=== PATIENT | male | born 1955 | race Caucasian/White ===

== ENCOUNTER 2024-02-17 22:02 | Inpatient (IN) | payer MEDICARE, SELFPAY ==
--- NOTE | 2024-02-17 | ECG_ITS ---
Test Reason : DYSPNEA Blood Pressure : / mmHG Vent. Rate : 117 BPM Atrial Rate : 000 BPM P-R Int : 000 ms QRS Dur : 132 ms QT Int : 356 ms P-R-T Axes : 000 090 -38 degrees QTc Int : 496 ms Atrial fibrillation with rapid ventricular response Right bundle branch block Possible Lateral infarct , age undetermined Abnormal ECG No previous ECGs available Referred By: Generic ED Physician Electronically Signed By:BAMBI HALL
--- NOTE | ~2024-02-17 | CT_ITS ---
EXAMINATION: CT CHEST WITHOUT CONTRAST CLINICAL INFORMATION: Question pneumonia COMPARISON: Chest radiograph 02/17/2024. TECHNIQUE: Multidetector volumetric CT imaging of the chest was done. Axial MIP volume rendering provided. Sagittal and coronal reformatted images were obtained. This CT examination was performed using dose optimization techniques as appropriate, variously including the following: *Automated exposure control *Adjustment of mA and/or kV according to patient size (this includes techniques or standardized protocols for targeted exams where dose is matched to indication/reason for exam; i.e. extremities or head) *Use of iterative reconstruction technique DLP: 399 mGy-cm FINDINGS: Lungs and pleura: Moderate right pleural effusion is present. Small left pleural effusion is present. Near complete left lower lobe atelectasis is identified. No suspicious pulmonary nodules visualized. Mediastinum: Moderate diffuse aortic calcific atherosclerosis. Moderate-marked diffuse coronary artery calcific atherosclerosis with dense calcific plaque within the left anterior descending coronary artery. No pericardial thickening or fluid collections. Normal heart size. CHEST WALL: No axillary lymphadenopathy. No chest wall inflammatory changes. Incidentally visualized abdominal structures: Partial visualization is made of a fusiform infrarenal abdominal aorta aortic aneurysm measuring at least 5.0 cm in transaxial dimension. The aneurysm is not fully included on imaged field of view. No inflammatory changes noted in continuity with the visualized aneurysm. Osseous structures: No suspicious skeletal abnormalities identified. CT/CT chest wo IV con IMPRESSION: *Near-complete left lower lobe atelectasis. No pulmonary consolidation or inflammatory changes identified to specifically suggest pneumonia. *Small left pleural effusion and moderate right pleural effusion. *Partially visualized abdominal aortic aneurysm measuring at least 5.0 cm in transaxial dimension. Recommend dedicated imaging of the aorta. The aorta may be imaged with dedicated aortic ultrasound. Based on published guidelines in J Am Mandy Radiol 2013; 10(10):789-794 and J Vasc Surg. 2018; 67:2-77, the recommendation for an abdominal aortic aneurysm with diameter 4.5-5.4 cm is vascular consultation and subsequent follow-up every 6 months. *Moderate-marked coronary artery calcific atherosclerosis including dense calcific atherosclerosis within the left anterior descending coronary artery. Electronically signed by: Javier Murphy MD 02/18/2024 06:14 AM EST
--- NOTE | ~2024-02-17 | XR_ITS ---
EXAMINATION: XR CHEST CLINICAL INFORMATION: Shortness of breath COMPARISON: X-ray 02/17/2024 TECHNIQUE: Frontal view of the chest was obtained. FINDINGS: Rotated positioning. Lordotic view. This limits evaluation of the cardiac silhouette. This overall appears similar as compared to previous, allowing for difference in positioning/technique. Low lung volumes. Small-moderate left pleural effusion. Small right pleural effusion. Opacification in the left lower lung/retrocardiac region. This suggests atelectasis or consolidation. This is better evaluated on the prior CT scan. No pulmonary edema. No pneumothorax is seen. Overlying monitoring leads.. XR/XR chest 1V IMPRESSION: Small-moderate left pleural effusion. Small right pleural effusion. Opacification the left lower lung/retrocardiac region, from atelectasis versus inflammatory/infectious process. Electronically signed by: Isac Douglas MD 02/21/2024 06:50 PM EST
--- NOTE | ~2024-02-17 | XR_ITS ---
EXAMINATION: XR CHEST CLINICAL INFORMATION: Dyspnea. COMPARISON: Chest x-ray September 27, 2013 dictated report. TECHNIQUE: Frontal portable view of the chest was obtained. 10:59 PM FINDINGS: Overall volume loss left hemithorax compared to right. Dense left lung base with silhouetting of the diaphragm, consolidation/atelectasis. Right lung normally aerated. No pulmonary vascular congestion. XR/XR chest 1V IMPRESSION: Dense left lung base with silhouetting of the diaphragm, consolidation/atelectasis. Electronically signed by: Jareth Ramirez MD 02/17/2024 11:36 PM EDT
[2024-02-17 22:17] VITALS: BP 136/70; PULSE 100; O2SAT 98
[2024-02-17 22:21] VITALS: BP 101/55; PULSE 109; RESP 22; TEMP 36.6; O2SAT 97; BMI 31.9
[2024-02-17 22:51] LABS: MANUAL DIFF FLAG NO
[2024-02-17 22:52] LABS: Eosinophils Absolute Auto 0.1 X10*3/uL (0.0-0.4); Eosinophils Percent Auto 0.7 % (0-4); Hemoglobin 10.5 g/dl (14.0-18.0)
[2024-02-17 22:54] LABS: VBG Base Excess 1.1 mmol/L; VBG HCO3 24 mmol/L (22-26); VBG pCO2 36 mmHg; VBG pH 7.44 (7.32-7.43); VBG pO2 21 mmHg
[2024-02-17 22:57] LABS: Venous Blood Gas Refer to POC result
[2024-02-17 22:58] LABS: INTERNATIONAL NORM RATIO 1.3 (0.9-1.1); Prothrombin Time 15.1 SEC (10.9-12.4)
[2024-02-17 22:59] LABS: Basophils Absolute Auto 0.1 X10*3/uL (0.0-0.2); Basophils Percent Auto 0.5 % (0-2); Hematocrit 33.8 % (42.0-52.0); Imm Gran Abs Auto 0.08 X10*3/uL (0.00-0.03); Imm Gran Pct Auto 0.7 % (0.0-0.4); Lymphocytes Percent Auto 8.9 % (20-40); Mean Corpuscular HGB Conc 31.1 g/dl (31.0-36.0); Mean Corpuscular Hemoglobin 28.3 pg (27.0-33.0); Mean Corpuscular Volume 91.1 fL (80.0-98.0); Mean Platelet Volume 8.2 fL (9.4-12.4); Monocytes Absolute Auto 0.8 X10*3/uL (0.1-1.2); Monocytes Percent Auto 6.6 % (2-11); NRBC Pct Auto 0.7 /100WBC (0.0-0.2); Neutrophils Absolute Auto 9.4 x10*3/uL (2.0-8.3); Neutrophils Percent Auto 82.6 % (45-73); Platelet Count 459 X10*3/uL (160-400); Red Blood Count 3.71 X10*6/uL (4.60-5.80); Red Cell Distribution Width 18.7 % (11.0-16.0); White Blood Count 11.4 X10*3/uL (4.8-10.8)
[2024-02-17 23:06] LABS: Alanine Aminotransferase < 6 U/L (0-40); Albumin Level 2.7 g/dL (3.5-5.0); Alkaline Phosphatase 124 U/L (39-117); Anion Gap 21 (12-20); Aspartate Amino Transferase 20 U/L (5-37); Bilirubin Total 1.3 mg/dL (0.0-1.0); Blood Urea Nitrogen 15 mg/dL (9-16); Calcium 8.9 mg/dL (8.4-10.2); Carbon Dioxide 22 mmol/L (22-29); Chloride 104 mmol/L (96-108); Creatinine Clr Calc Pharmacy 86.2; Estimated Glomerular Filt Rate > 60; Glucose Random 85 mg/dL (60-115); Potassium 4.6 mmol/L (3.3-5.1); Sodium 142 mmol/L (135-145); Total Protein 6.9 g/dL (6.5-8.0)
[2024-02-17 23:11] LABS: B Type Natriuretic Peptide 981 pg/mL (<100)
[2024-02-17 23:12] LABS: Troponin-I High Sensitivity 17.2 ng/L (<3.5-35.0)
[2024-02-17 23:29] LABS: Influenza A PCR NEGATIVE (Negative); Influenza B PCR NEGATIVE (Negative); Resp Syncy Virus RNA Qual PCR NEGATIVE (Negative); SARS COV2 PCR INHOUSE NEGATIVE (Negative)
[2024-02-18] VITALS (26 sets, daily range): BP systolic 67–110; BP diastolic 44–81; PULSE 89–128; RESP 14–30; TEMP 35.9–36.6; O2SAT 93–97; BMI 33.8
--- NOTE | 2024-02-18 00:22 | ED.SOB ---
HPI - SOB/Dyspnea General Chief Complaint: Dyspnea Stated Complaint: dizziness Time Seen by Provider: 02/18/24 00:21 Source: patient Mode of arrival: ambulatory Limitations: no limitations History of Present Illness ED Provider: refugio MARINO Narrative: Patient's history of COPD CHF AFib on Eliquis which he has not taking for last few weeks with just admitted to [facility] discharged on 02/02 , dc on 02/06 for weakness ,with similar symptoms comes here for shortness a breath cough for last 3- 4 days patient's used to be on furosemide but they stopped it at the time of discharge no leg swelling does have a cough with mucopurulent phlegm patient complaining of increased dizziness specially on standing patient had hypotension at the time of admission hence torsemide and Flomax was stopped Related Data Home Medications ?Medication ?Instructions ?Recorded ?Confirmed albuterol sulfate 90 mcg/actuation inhalation 02/18/24 aerosol inhaler atorvastatin 80 mg tablet 80 mg PO DAILY 02/18/24 02/18/24 bupropion HCl 300 mg 24 hr tablet, 300 mg PO DAILY 02/18/24 02/18/24 extended release oxycodone-acetaminophen 5 mg-325 1 tab PO Q6H PRN pain 02/18/24 02/18/24 mg tablet Allergies Allergy/AdvReac Type Severity Reaction Status Date / Time nicotine AdvReac Itching Verified 02/17/24 22:25 Review of Systems Review of Systems: Yes all other systems are reviewed and are negative [facility] Past Medical History Medical History (Updated 02/18/24 @ 07:02 by Rodolfo Akers MD) (HFpEF) heart failure with preserved ejection fraction CKD (chronic kidney disease) Lung cancer Abdominal aortic aneurysm PVD (peripheral vascular disease) COPD (chronic obstructive pulmonary disease) Atrial fibrillation Social History Social History Smoked in Last 30 Days: No Use of substances other than those prescribed or required for medical reasons: No Advance Directives: No Advance Directives Information Provided: No Do you have a plan to hurt others: No Plan Physical Exam Vital Signs: Vital Signs: Last Vital Signs Temp 97.8 F 02/18/24 00:23 Pulse 115 H 02/18/24 05:39 Resp 18 02/18/24 05:39 BP 100/71 02/18/24 05:39 Pulse Ox 94 02/18/24 05:21 O2 Del Method Room Air 02/18/24 05:21 BMI result Body Mass Index 31.9 Appearance: Alert. Oriented X3. No acute distress. Eyes: ++ pallor, - icterus ENT: Pharynx normal. Oral Mucosa moist Neck: Normal inspection. Neck supple. CVS: Irregularly irregular heart rate tachycardic. Pulses normal. Respiratory: No respiratory distress. Equal air entry bilateral, no wheezing/rales/rhonchi Abdomen: Soft and nontender. Bowel sounds are present, no mass palpable, no CVA tenderness Skin: Skin warm and dry. Normal skin color. Normal skin turgor. Extremities: No lower extremity edema. No calf tenderness Neuro: Oriented X 3. No motor deficit. Medications Administered Discontinued Medications Generic Name Dose Route Start Last Admin Trade Name Freq PRN Reason Stop Dose Admin Al Hydroxide/Mg Hydroxide 30 ml 02/18/24 02:07 02/18/24 02:12 Magnesium Hydrox/Alum Hydrox 30 Ml Oral.Susp PO 02/18/24 02:08 30 ml ONCE ONE Administration Ceftriaxone Sodium 1 gm 02/18/24 04:46 02/18/24 05:23 Ceftriaxone Sodium 1 Gm Vial IVPUSH 02/18/24 04:47 1 gm ONCE ONE Administration Albuterol Sulfate 2.5 mg/ 0 mg 02/18/24 00:34 02/18/24 00:46 Albuterol/Ipratropium 3 ml INHALE 02/18/24 00:35 5 dose ONCE ONE Administration Sodium Chloride 1,000 mls @ 999 mls/hr 02/18/24 00:34 02/18/24 01:32 EST Ns IV 02/18/24 01:34 EST Infused .Q1H1M ONE Infusion Sodium Chloride 1,000 mls @ 999 mls/hr 02/18/24 01:46 EST 02/18/24 06:07 Ns IV 02/18/24 02:46 Infused .Q1H1M ONE Infusion Midodrine 5 mg 02/18/24 01:46 EST 02/18/24 02:03 Midodrine Hcl 5 Mg Tablet PO 02/18/24 01:47 EST 5 mg ONCE ONE Administration Medical Decision Making Medical Decision Making MDM Narrative: Patient has significant orthostatic hypotension IV fluids were given still patient is hypotensive on standing patient was given midodrin elevated lactic acid level likely type B from nebulizing treatment blood cultures were drawn will admit patient for persistent hypotension etiology not clear IV Rocephin was given CT chest negative for pneumonia patient's atrial fibrillation also with heart rate ranging from 110-120 patient is on beta parag has not taken in the dose yet tamsulosin and torsemide was stopped during last admission still patient's hypotensive Differential Diagnosis Differential Diagnoses: The differential diagnosis associated with the presentation includes Hypotension/CHF/bacterial infection Admission/Observation Consideration of admission/observation: Escalation of care including admission/observation considered Consult Healthcare Provider Management of the patient was discussed with: Hospitalist Lab Data [facility] Lab Attestation statement: I reviewed the patient's lab results. 02/17/24 22:44 02/17/24 22:44 Labs: Lab Results 02/17/24 02/17/24 02/18/24 Range/Units 22:44 22:49 05:20 WBC 11.4 H (4.8-10.8) X10*3/uL RBC 3.71 L (4.60-5.80) X10*6/uL Hgb 10.5 L (14.0-18.0) g/dl Hct 33.8 L (42.0-52.0) % MCV 91.1 (80.0-98.0) fL MCH 28.3 (27.0-33.0) pg MCHC 31.1 (31.0-36.0) g/dl RDW 18.7 H (11.0-16.0) % Plt Count 459 H (160-400) X10*3/uL MPV 8.2 L (9.4-12.4) fL Immature Gran % (Auto) 0.7 H (0.0-0.4) % Neut % (Auto) 82.6 H (45-73) % Lymph % (Auto) 8.9 L (20-40) % [place] % (Auto) 6.6 (2-11) % Eos % (Auto) 0.7 (0-4) % Baso % (Auto) 0.5 (0-2) % Lymph # (Auto) 1.0 L (1.2-4.9) X10*3/uL [place] # (Auto) 0.8 (0.1-1.2) X10*3/uL Eos # (Auto) 0.1 (0.0-0.4) X10*3/uL Baso # (Auto) 0.1 (0.0-0.2) X10*3/uL Abs Immat Gran (auto) 0.08 H (0.00-0.03) X10*3/uL Absolute Neuts (auto) 9.4 H (2.0-8.3) x10*3/uL Absolute Nucleated RBC 0.080 H (0.0-0.012) X10*3/uL Nucleated RBC % (auto) 0.7 H (0.0-0.2) /100WBC PT 15.1 H (10.9-12.4) SEC INR 1.3 H (0.9-1.1) VBG pH 7.44 H (7.32-7.43) VBG pCO2 36 mmHg VBG pO2 21 mmHg VBG HCO3 24 (22-26) mmol/L VBG O2 Saturation 35.0 % VBG Base Excess 1.1 mmol/L Sodium 142 (135-145) mmol/L Potassium 4.6 (3.3-5.1) mmol/L Chloride 104 (96-108) mmol/L Carbon Dioxide 22 (22-29) mmol/L Anion Gap 21 H (12-20) BUN 15 (9-16) mg/dL Creatinine 0.93 (0.5-1.4) mg/dL Estim Creat Clear Calc 86.2 Estimated GFR > 60 Random Glucose 85 (60-115) mg/dL Lactic Acid 2.4 H* (0.5-2.0) mmol/L Calcium 8.9 (8.4-10.2) mg/dL Total Bilirubin 1.3 H (0.0-1.0) mg/dL AST 20 (5-37) U/L ALT < 6 (0-40) U/L Alkaline Phosphatase 124 H (39-117) U/L Troponin I High Sens 17.2 (<3.5-35.0) ng/L B-Natriuretic Peptide 981 H (<100) pg/mL Total Protein 6.9 (6.5-8.0) g/dL Albumin 2.7 L (3.5-5.0) g/dL COVID-19 ([facility]) (Negative) COVID-19 Clin Com Influenza Type A (PCR) NEGATIVE (Negative) Influenza Type B (PCR) NEGATIVE (Negative) RSV RNA Qual (PCR) NEGATIVE (Negative) SARS-CoV-2 RNA (RT-PCR) NEGATIVE (Negative) 02/18/24 Range/Units 05:21 WBC (4.8-10.8) X10*3/uL RBC (4.60-5.80) X10*6/uL Hgb (14.0-18.0) g/dl Hct (42.0-52.0) % MCV (80.0-98.0) fL MCH (27.0-33.0) pg MCHC (31.0-36.0) g/dl RDW (11.0-16.0) % Plt Count (160-400) X10*3/uL MPV (9.4-12.4) fL Immature Gran % (Auto) (0.0-0.4) % Neut % (Auto) (45-73) % Lymph % (Auto) (20-40) % [place] % (Auto) (2-11) % Eos % (Auto) (0-4) % Baso % (Auto) (0-2) % Lymph # (Auto) (1.2-4.9) X10*3/uL [place] # (Auto) (0.1-1.2) X10*3/uL Eos # (Auto) (0.0-0.4) X10*3/uL Baso # (Auto) (0.0-0.2) X10*3/uL Abs Immat Gran (auto) (0.00-0.03) X10*3/uL Absolute Neuts (auto) (2.0-8.3) x10*3/uL Absolute Nucleated RBC (0.0-0.012) X10*3/uL Nucleated RBC % (auto) (0.0-0.2) /100WBC PT (10.9-12.4) SEC INR (0.9-1.1) VBG pH (7.32-7.43) VBG pCO2 mmHg VBG pO2 mmHg VBG HCO3 (22-26) mmol/L VBG O2 Saturation % VBG Base Excess mmol/L Sodium (135-145) mmol/L Potassium (3.3-5.1) mmol/L Chloride (96-108) mmol/L Carbon Dioxide (22-29) mmol/L Anion Gap (12-20) BUN (9-16) mg/dL Creatinine (0.5-1.4) mg/dL Estim Creat Clear Calc Estimated GFR Random Glucose (60-115) mg/dL Lactic Acid (0.5-2.0) mmol/L Calcium (8.4-10.2) mg/dL Total Bilirubin (0.0-1.0) mg/dL AST (5-37) U/L ALT (0-40) U/L Alkaline Phosphatase (39-117) U/L Troponin I High Sens (<3.5-35.0) ng/L B-Natriuretic Peptide (<100) pg/mL Total Protein (6.5-8.0) g/dL Albumin (3.5-5.0) g/dL COVID-19 ([facility]) Negative (Negative) COVID-19 Clin Com See Note Influenza Type A (PCR) (Negative) Influenza Type B (PCR) (Negative) RSV RNA Qual (PCR) (Negative) SARS-CoV-2 RNA (RT-PCR) (Negative) Independent Interpretation I performed an independent interpretation of an: EKG Interpretation: Atrial fibrillation with rapid ventricular response rate of 117 right bundle-branch block no acute ST elevation no acute ischemia Discharge Plan Discharge Clinical Impression: Hypotension, Atrial fibrillation, Weakness Patient Disposition: Admitted As Inpatient Print Language: Montserratian
[2024-02-18] MEDS: 0.9 % Sodium Chloride 1,000 ML 999 ML IV ×2 (00:41→02:03)
[2024-02-18] MEDS: Albuterol Sulfate 2.5 MG, Albuterol/Iprat 2.5/0.5MG 3 ML 3 ML INHALE (00:46)
--- NOTE | 2024-02-18 01:09 | PC.NURSE ---
Pt oob to bathroom, pt has a steady gait, no pain at this time. pt remains NPO
--- NOTE | 2024-02-18 01:44 | PC.NURSE ---
Orthostatic vitals per became very light headed. Laying bp 90/65, sitting 77/50, standing 67/44. made aware, 1L NS hung per MD request
[2024-02-18] MEDS: Midodrine HCl 5 MG TABLET PO ×4 (02:03→15:43)
[2024-02-18] MEDS: Magnesium Hydrox/Alum Hydrox 30 ML ORAL.SUSP PO (02:12)
[2024-02-18] MEDS: cefTRIAXone sodium 1 GM VIAL IVPUSH (05:23)
[2024-02-18 05:38] LABS: COVID-19 Test Negative (Negative); IDNOW Serial# 6674DD1D
[2024-02-18 05:41] LABS: Lactic Acid 2.4 mmol/L (0.5-2.0)
--- NOTE | 2024-02-18 06:05 | PC.NURSE ---
late entry: fluids stopped d/t crackles in lung sounds.
[2024-02-18 07:27] LABS: Reflex Lactate? Lactic Acid Added
--- NOTE | 2024-02-18 07:53 | PC.NURSE ---
patient a&ox3, rr equal non labored, lll crackles/diminished throughout, afib on electronic device monitor, pt denies pain/discomfort, pt walks with walker at baseline, tech to redraw lactic, kitchen called for breakfast, pt awaiting hospitalist for admission. call dyer within reach, will continue plan of care
--- NOTE | 2024-02-18 08:09 | PHA.MEDREC ---
Pharmacy Consult ? Medication Reconciliation Pharmacy has completed the medication reconciliation. Spoke with patient in the ED who was able to confirm medications he has been taking. Recently discharged from [facility] with discharge instructions. Patient is supposed to be taking torsemide PRN, sprivia, Trelegy, Apixaban, Finasteride but the medications have not been picked up recently. Called [facility] to confirm these medications and the RX is there but on hold. Patient explained he is in the donut hole and his prescriptions are too expensive. Per [facility] discharge instruction on 02/07/24 patient was supposed to stop tamsulosin and start finasteride. Patient last took medications yesterday.
[2024-02-18 08:28] LABS: ~Lactic Acid-LAB USE ONLY 2.5 mmol/L (0.5-2.0)
--- NOTE | 2024-02-18 08:46 | PC.NURSE ---
pts lactic was called to be 2.5, Priyanka Groves was notified via tiger text.
[2024-02-18 10:04] LABS: Reflex Lactate? 2 Y
[2024-02-18] MEDS: Apixaban 5 MG TABLET PO ×2 (10:13→20:58)
[2024-02-18] MEDS: Aspirin Enteric Coated 81 MG TABLET.DR PO (10:13)
[2024-02-18] MEDS: Finasteride 5 MG TABLET PO (10:13)
[2024-02-18] MEDS: Omeprazole 20 MG CAPSULE.DR PO ×2 (10:13→15:43)
[2024-02-18] MEDS: Atorvastatin Calcium 80 MG TABLET PO (10:13)
[2024-02-18] MEDS: buPROPion HCl XL 300 MG TAB.ER.24H PO (10:14)
[2024-02-18] MEDS: Famotidine 20 MG TABLET PO ×2 (10:14→20:59)
[2024-02-18] MEDS: Albumin Human 25 % 100 ML IV ×3 (10:15→21:02)
--- NOTE | 2024-02-18 10:21 | PC.NURSE ---
pt medicated with all po meds. lasix to be held until midodrine takes effect per request of Dr. Steel. albumin hung per order
--- NOTE | 2024-02-18 11:08 | P.HPHOSP_ITS ---
History of Present Illness Date of Service: 02/18/24 Attending physician on admission: Donta Steel Chief Complaint: possible orthostasis ,afib,chf HPI: 68 y/o male ex smoker (60 pack year hx),COPD CHF AFib on Eliquis which he has not taking for last few weeks with just admitted to [facility] discharged on 02/02 , dc on 02/06 for weakness ,with similar symptoms comes here for shortness a breath cough for last 3- 4 days patient's used to be on furosemide but they stopped it at the time of discharge no leg swelling does have a cough with mucopurulent phlegm patient complaining of increased dizziness (specially on standing patient had hypotension at the time of admission hence torsemide and Flomax was stopped).patient says he appitite and hydration also low. patient seems orthostatic in ed ,generalised weak ,tachy and sob, elevated bnp, leg edema -given ivf /midodrine ,ceftriaxone -requested admission for possible chf . lactic acid elevated sec to hypovolemia/orthostsis ,nebs he says he received Patient is generlaised weak ,lightheadness ,sob with excersion, has leg edema ,unable to tell if any weight gain ,poor histroian , does not seems very complaint patient. labs imaging ,ekg reviewed : wbc 11.4 lactic acidosis imrpoved bmp fine bnp 981 CT/CT chest wo IV con IMPRESSION: *Near-complete left lower lobe atelectasis. No pulmonary consolidation or inflammatory changes identified to specifically suggest pneumonia. *Small left pleural effusion and moderate right pleural effusion. *Partially visualized abdominal aortic aneurysm measuring at least 5.0 cm in transaxial dimension. Recommend dedicated imaging of the aorta. The aorta may be imaged with dedicated aortic ultrasound. Based on published guidelines in J Am Mandy Radiol 2013; 10(10):789-794 and J Vasc Surg. 2018; 67:2-77, the recommendation for an abdominal aortic aneurysm with diameter 4.5-5.4 cm is vascular consultation and subsequent follow-up every 6 months. *Moderate-marked coronary artery calcific atherosclerosis including dense calcific atherosclerosis within the left anterior descending coronary artery. Review of Systems 2 Review of Systems: Yes all other systems are reviewed and are negative [facility] Medical History (HFpEF) heart failure with preserved ejection fraction CKD (chronic kidney disease) Lung cancer Abdominal aortic aneurysm PVD (peripheral vascular disease) COPD (chronic obstructive pulmonary disease) Atrial fibrillation Social History Patient Tobacco Use Status: Never used Tobacco Meds Allergies Allergy/AdvReac Type Severity Reaction Status Date / Time nicotine AdvReac Itching Verified 02/17/24 22:25 Active Medications: Current Medications Acetaminophen (Acetaminophen 325 Mg Tablet) 650 mg PO Q6H PRN PRN Reason: Pain, Mild (Pain Scale 1-3), fever or headache Albuterol Sulfate (Albuterol Sulfate 90 Mcg 8 Gm Inhaler) 2 puff INHALE Q4H PRN PRN Reason: Shortness Of Breath Or Wheezin Albuterol/Ipratropium (Albuterol/Iprat 2.5/0.5mg 3 Ml Ampul.Neb) 3 ml INHALE RQ4H [facility] Apixaban (Apixaban 5 Mg Tablet) 5 mg PO BID [facility] Last Admin: 02/18/24 10:13 Dose: 5 mg Aspirin (Aspirin Enteric Coated 81 Mg Tablet.Dr) 81 mg PO DAILY [facility] Last Admin: 02/18/24 10:13 Dose: 81 mg Atorvastatin Calcium (Atorvastatin Calcium 80 Mg Tablet) 80 mg PO DAILY [facility] Last Admin: 02/18/24 10:13 Dose: 80 mg Bupropion HCl (Bupropion Hcl Xl 300 Mg Tab.Er.24h) 300 mg PO DAILY [facility] Last Admin: 02/18/24 10:14 Dose: 300 mg Calcium Carbonate (Calcium Carbonate 750 Mg Tab.Chew) 750 mg PO Q4H PRN PRN Reason: Heartburn Famotidine (Famotidine 20 Mg Tablet) 20 mg PO BID [facility] Last Admin: 02/18/24 10:14 Dose: 20 mg Finasteride (Finasteride 5 Mg Tablet) 5 mg PO DAILY [facility] Last Admin: 02/18/24 10:13 Dose: 5 mg Fluticasone/Umeclidinium/Vilanterol (Fluticasone/Umeclidinium/Vilanterol 100/62.5/25 Blst.W.Dev) 1 puff INHALE RDAILY [facility] Last Admin: 02/18/24 09:37 Dose: Not Given Furosemide (Furosemide 20 Mg/2 Ml Vial) 20 mg IVPUSH DAILY [facility]; Protocol Albumin Human (Kedbumin 25 %) 100 mls @ 100 mls/hr IV Q6H [facility] Stop: 02/19/24 04:59 Last Admin: 02/18/24 10:15 Dose: 100 mls/hr Magnesium Hydroxide (Milk Of Magnesia 30 Ml Oral.Susp) 30 ml PO DAILY PRN PRN Reason: Constipation Melatonin (Melatonin 3 Mg Tablet) 6 mg PO BEDTIME PRN PRN Reason: Insomnia Metoprolol Succinate (Metoprolol Succinate Er 25 Mg Tab.Er.24h) 25 mg PO DAILY [facility]; Protocol Last Admin: 02/18/24 09:36 Dose: Not Given Midodrine (Midodrine Hcl 5 Mg Tablet) 5 mg PO TIDWM [facility] Last Admin: 02/18/24 10:14 Dose: 5 mg Omeprazole (Omeprazole 20 Mg Capsule.Dr) 20 mg PO BID@0630,1630 [facility] Last Admin: 02/18/24 10:13 Dose: 20 mg Oxycodone HCl (Oxycodone Hcl Immed Release 5 Mg Tablet) 5 mg PO Q6H PRN PRN Reason: Pain (Scale Score 4-6) Sodium Chloride (0.9 % Sodium Chloride Flush 3 Ml Syringe) 3 ml IVFLUSH QSHIFT [facility] Tiotropium Solo (Tiotropium Solo 2.5 Mcg 1 Puff/2.5 Mcg Mist.Inhal) 1 puff INHALE RDAILY [facility] Last Admin: 02/18/24 10:35 Dose: Not Given Torsemide (Torsemide 20 Mg Tablet) 20 mg PO DAILY PRN; Protocol PRN Reason: Weight Gain Home Medications ?Medication ?Instructions ?Recorded ?Confirmed ?Last Taken ?Type albuterol sulfate 90 mcg/actuation 1 - 2 puff inhalation Q4-6H PRN 02/18/24 02/18/24 Unknown History aerosol inhaler Shortness Of Breath Or Wheezing apixaban 5 mg tablet (Eliquis) 5 mg PO BID 02/18/24 02/18/24 Unknown History aspirin 81 mg tablet,delayed 81 mg PO DAILY 02/18/24 02/18/24 Unknown History release atorvastatin 80 mg tablet 80 mg PO DAILY 02/18/24 02/18/24 Unknown History bupropion HCl 300 mg 24 hr tablet, 300 mg PO DAILY 02/18/24 02/18/24 Unknown History extended release famotidine 20 mg tablet 20 mg PO BID 02/18/24 02/18/24 Unknown History finasteride 5 mg tablet 5 mg PO DAILY 02/18/24 02/18/24 Unknown History fluticasone fur. 100 mcg-umeclid 1 inh inhalation DAILY 02/18/24 02/18/24 Unknown History 62.5 mcg-vilant 25 mcg inhalat.powder (Trelegy Ellipta) metoprolol succinate 25 mg 25 mg PO DAILY 02/18/24 02/18/24 Unknown History tablet,extended release 24 hr omeprazole 20 mg capsule,delayed 20 mg PO BID@0630,1630 02/18/24 02/18/24 Unknown History release oxycodone-acetaminophen 5 mg-325 1 tab PO Q6H PRN Pain (Scale Score 02/18/24 02/18/24 Unknown History mg tablet 4-6) tiotropium bromide 1.25 2 puff inhalation DAILY 02/18/24 02/18/24 Unknown History mcg/actuation mist for inhalation (Spiriva Respimat) torsemide 20 mg tablet 20 mg PO DAILY PRN Weight Gain 02/18/24 02/18/24 Unknown History Physical Exam 2 Vital Signs and Narrative: Vital Signs: Last Vital Signs Temp 96.6 F L 02/18/24 09:55 Pulse 99 02/18/24 11:05 Resp 14 02/18/24 11:05 BP 102/69 02/18/24 11:05 Pulse Ox 96 02/18/24 11:05 O2 Del Method Room Air 02/18/24 11:05 BMI result Body Mass Index 31.9 Appearance: Alert.? Oriented X3.?? Eyes: Pupils equal, round and reactive to light.? Sclera nonicteric.? ENT: Pharynx normal.? Moist mucous membranes. cvs: rrr, [id number]. res: air entry fair, siminshed at bases , has few cracles left base, also has some scattered wheezing. abd: no rebound or guarding ,nt, bs present. ext pulses present , no cyanosis , b/l leg edema neuro: axo3 , nonfocal. Results Labs 02/17/24 22:44 02/17/24 22:44 Labs: Laboratory Results - last 24 hr 02/17/24 02/17/24 02/18/24 22:44 22:49 05:20 MCV 91.1 MCH 28.3 MCHC 31.1 RDW 18.7 H Plt Count 459 H MPV 8.2 L Immature Gran % (Auto) 0.7 H Neut % (Auto) 82.6 H Lymph % (Auto) 8.9 L [place] % (Auto) 6.6 Eos % (Auto) 0.7 Baso % (Auto) 0.5 Lymph # (Auto) 1.0 L [place] # (Auto) 0.8 Eos # (Auto) 0.1 Baso # (Auto) 0.1 Abs Immat Gran (auto) 0.08 H Absolute Neuts (auto) 9.4 H Absolute Nucleated RBC 0.080 H Nucleated RBC % (auto) 0.7 H PT 15.1 H INR 1.3 H VBG pH 7.44 H VBG pCO2 36 VBG pO2 21 VBG HCO3 24 VBG O2 Saturation 35.0 VBG Base Excess 1.1 Anion Gap 21 H Estim Creat Clear Calc 86.2 Estimated GFR > 60 Random Glucose 85 Lactic Acid 2.4 H* Lactic Acid F/U @ 2Hr Calcium 8.9 Total Bilirubin 1.3 H AST 20 ALT < 6 Alkaline Phosphatase 124 H Troponin I High Sens 17.2 B-Natriuretic Peptide 981 H Total Protein 6.9 Albumin 2.7 L COVID-19 ([facility]) COVID-19 Clin Com Influenza Type A (PCR) NEGATIVE Influenza Type B (PCR) NEGATIVE RSV RNA Qual (PCR) NEGATIVE SARS-CoV-2 RNA (RT-PCR) NEGATIVE 02/18/24 02/18/24 05:21 08:01 MCV MCH MCHC RDW Plt Count MPV Immature Gran % (Auto) Neut % (Auto) Lymph % (Auto) [place] % (Auto) Eos % (Auto) Baso % (Auto) Lymph # (Auto) [place] # (Auto) Eos # (Auto) Baso # (Auto) Abs Immat Gran (auto) Absolute Neuts (auto) Absolute Nucleated RBC Nucleated RBC % (auto) PT INR VBG pH VBG pCO2 VBG pO2 VBG HCO3 VBG O2 Saturation VBG Base Excess Anion Gap Estim Creat Clear Calc Estimated GFR Random Glucose Lactic Acid Lactic Acid F/U @ 2Hr 2.5 H* Calcium Total Bilirubin AST ALT Alkaline Phosphatase Troponin I High Sens B-Natriuretic Peptide Total Protein Albumin COVID-19 ([facility]) Negative COVID-19 Clin Com See Note Influenza Type A (PCR) Influenza Type B (PCR) RSV RNA Qual (PCR) SARS-CoV-2 RNA (RT-PCR) Imaging Radiologist's Impressions: Impressions Chest X-Ray 02/17/24 21:05 IMPRESSION: Dense left lung base with silhouetting of the diaphragm, consolidation/atelectasis. Electronically signed by: Jareth Ramirez MD 02/17/2024 11:[address] 02/18/24 04:43 IMPRESSION: *Near-complete left lower lobe atelectasis. No pulmonary consolidation or inflammatory changes identified to specifically suggest pneumonia. *Small left pleural effusion and moderate right pleural effusion. *Partially visualized abdominal aortic aneurysm measuring at least 5.0 cm in transaxial dimension. Recommend dedicated imaging of the aorta. The aorta may be imaged with dedicated aortic ultrasound. Based on published guidelines in J Am Mandy Radiol 2013; 10(10):789-794 and J Vasc Surg. 2018; 67:2-77, the recommendation for an abdominal aortic aneurysm with diameter 4.5-5.4 cm is vascular consultation and subsequent follow-up every 6 months. *Moderate-marked coronary artery calcific atherosclerosis including dense calcific atherosclerosis within the left anterior descending coronary artery. Electronically signed by: Javeir Murphy MD 02/18/2024 06:14 AM EST RP Assessment and Plan (1) Atrial fibrillation with rapid ventricular response: Status: Acute (2) Hypotension: Status: Acute (3) Atrial fibrillation: Status: Acute Plan 68 y/o male ex smoker (60 pack year hx),COPD CHF AFib on Eliquis -came with dyspnea : dyspnea -possible ChfpEF excerebation acute on ch.in setting of afib and orthostatic hypotension bnp 981 Daily weights, I&O monitoring plan: start on iv lasix . cardiology eval Mild copd excerebation/atlecatsis: continue nebs,steriods ,antibiotics,incentive spriometry and chest physiotherapy. possible orthostatic hypotension: tiburcio stocking,added midorine afib: mild elevated hr hold bb once,add digoxin loading, bp acceptable , eliquis ct abd showed aortic aneurysm measuring at least 5.0 as per [facility] records-outpatient vascular eval dvt prophylax: continue eliquis Considering multiple issues above CHF exacerbation, COPD, orthostasis-patient had IV Lasix, electrolyte monitoring and tele monitoring as well as cardiology evaluation, patient will benefit from at least 2 midnight inpatient stay. Quality Stroke Does the patient have a stroke diagnosis?: No VTE Prior VTE?: No VTE Risk Level:: Medical - moderate - high VTE Device Contraindication: N/A - Device Ordered VTE Drug Contraindication: N/A - Med Ordered
[2024-02-18 11:34] LABS: ~Lactic Acid-LAB USE ONLY 1.9 mmol/L (0.5-2.0)
[2024-02-18] MEDS: Albuterol/Iprat 2.5/0.5MG 3 ML AMPUL.NEB INHALE ×3 (11:39→20:09)
[2024-02-18] MEDS: predniSONE 20 MG TABLET PO (12:42)
--- NOTE | 2024-02-18 12:44 | P.PNCA_ITS ---
Subjective Subjective Date of Service: 02/18/24 Interval history: Seen and evaluated. Physical Exam Vital Signs: Last Vital Signs Temp 96.6 F L 02/18/24 09:55 Pulse 108 H 02/18/24 11:46 Resp 20 02/18/24 11:41 BP 100/73 02/18/24 12:43 Pulse Ox 94 02/18/24 11:46 O2 Del Method Room Air 02/18/24 11:46 BMI result Body Mass Index 31.9 Objective Labs and Meds 02/17/24 22:44 02/17/24 22:44 Lab results: Laboratory Results - last 24 hr 02/17/24 02/17/24 02/18/24 22:44 22:49 05:20 WBC 11.4 H RBC 3.71 L Hgb 10.5 L Hct 33.8 L MCV 91.1 MCH 28.3 MCHC 31.1 RDW 18.7 H Plt Count 459 H MPV 8.2 L Immature Gran % (Auto) 0.7 H Neut % (Auto) 82.6 H Lymph % (Auto) 8.9 L [place] % (Auto) 6.6 Eos % (Auto) 0.7 Baso % (Auto) 0.5 Lymph # (Auto) 1.0 L [place] # (Auto) 0.8 Eos # (Auto) 0.1 Baso # (Auto) 0.1 Abs Immat Gran (auto) 0.08 H Absolute Neuts (auto) 9.4 H Absolute Nucleated RBC 0.080 H Nucleated RBC % (auto) 0.7 H PT 15.1 H INR 1.3 H VBG pH 7.44 H VBG pCO2 36 VBG pO2 21 VBG HCO3 24 VBG O2 Saturation 35.0 VBG Base Excess 1.1 Sodium 142 Potassium 4.6 Chloride 104 Carbon Dioxide 22 Anion Gap 21 H BUN 15 Creatinine 0.93 Estim Creat Clear Calc 86.2 Estimated GFR > 60 Random Glucose 85 Lactic Acid 2.4 H* Lactic Acid F/U @ 2Hr Lactic Acid F/U @ 4Hr Calcium 8.9 Total Bilirubin 1.3 H AST 20 ALT < 6 Alkaline Phosphatase 124 H Troponin I High Sens 17.2 B-Natriuretic Peptide 981 H Total Protein 6.9 Albumin 2.7 L COVID-19 ([facility]) COVID-19 Clin Com Influenza Type A (PCR) NEGATIVE Influenza Type B (PCR) NEGATIVE RSV RNA Qual (PCR) NEGATIVE SARS-CoV-2 RNA (RT-PCR) NEGATIVE 02/18/24 02/18/24 02/18/24 05:21 08:01 10:46 WBC RBC Hgb Hct MCV MCH MCHC RDW Plt Count MPV Immature Gran % (Auto) Neut % (Auto) Lymph % (Auto) [place] % (Auto) Eos % (Auto) Baso % (Auto) Lymph # (Auto) [place] # (Auto) Eos # (Auto) Baso # (Auto) Abs Immat Gran (auto) Absolute Neuts (auto) Absolute Nucleated RBC Nucleated RBC % (auto) PT INR VBG pH VBG pCO2 VBG pO2 VBG HCO3 VBG O2 Saturation VBG Base Excess Sodium Potassium Chloride Carbon Dioxide Anion Gap BUN Creatinine Estim Creat Clear Calc Estimated GFR Random Glucose Lactic Acid Lactic Acid F/U @ 2Hr 2.5 H* Lactic Acid F/U @ 4Hr 1.9 Calcium Total Bilirubin AST ALT Alkaline Phosphatase Troponin I High Sens B-Natriuretic Peptide Total Protein Albumin COVID-19 ([facility]) Negative COVID-19 Clin Com See Note Influenza Type A (PCR) Influenza Type B (PCR) RSV RNA Qual (PCR) SARS-CoV-2 RNA (RT-PCR) Imaging Radiologist's impression: Impressions Chest X-Ray 02/17/24 21:05 IMPRESSION: Dense left lung base with silhouetting of the diaphragm, consolidation/atelectasis. Electronically signed by: Jareth Ramirez MD 02/17/2024 11:[address] 02/18/24 04:43 IMPRESSION: *Near-complete left lower lobe atelectasis. No pulmonary consolidation or inflammatory changes identified to specifically suggest pneumonia. *Small left pleural effusion and moderate right pleural effusion. *Partially visualized abdominal aortic aneurysm measuring at least 5.0 cm in transaxial dimension. Recommend dedicated imaging of the aorta. The aorta may be imaged with dedicated aortic ultrasound. Based on published guidelines in J Am Mandy Radiol 2013; 10(10):789-794 and J Vasc Surg. 2018; 67:2-77, the recommendation for an abdominal aortic aneurysm with diameter 4.5-5.4 cm is vascular consultation and subsequent follow-up every 6 months. *Moderate-marked coronary artery calcific atherosclerosis including dense calcific atherosclerosis within the left anterior descending coronary artery. Electronically signed by: Javier Murphy MD 02/18/2024 06:14 AM [facility] Progress Note: A&P Time Spent With Patient Time: Total time managing care of this patient today ____ minutes. Procedures Date of Service Date of Service: 02/18/24
--- NOTE | 2024-02-18 12:48 | PC.NURSE ---
Pharmacy called for 1200 Digoxin
[2024-02-18] MEDS: Digoxin 0.25 MG TABLET PO ×2 (12:53→20:58)
--- NOTE | 2024-02-18 13:34 | PC.NURSE ---
Re: Late lasix admin: per MD Steel @ [id number] okay to administer Lasix at this time. pt has been holding in the low 100's systolically. pt refuses at this time. sts I dont want to be up pissing all night pt offered urinal, and educated on need for lasix, pt refuses.
--- NOTE | 2024-02-18 14:01 | P.CONCA_ITS ---
History of Present Illness History of Present Illness Date of Service: 02/18/24 Chief complaint: CHF ; AFIB, orthostasis Narrative: Patient was seen in consultation regarding atrial fibrillation and other complaints.? Somewhat of a vague history and I do not have all the details.? Per discussion with Dr. Steel as well as from talking to the patient, it seems that he was just admitted to [facility].? He had complaints like feeling dizzy extra and at that time, it seems some of his medications including diuretics were stopped.? Currently, he is readmitted for very similar complaints.? Getting dizzy, lightheaded and with generalized weakness.? Some cough.? Possibly chronic shortness of breath but again vague.? He states he sees Cardiology in [facility].? Again we do not have any information about that.? Patient states he does forget to take a lot of his medications.? He does not take his anticoagulation regularly and patient admits to that.? Listed to be on a small dose of beta-parag and he takes it intermittently. Review of Systems 2 Review of Systems: Yes all other systems are reviewed and are negative Constitutional: Constitutional: Reports as per HPI, Reports no additional constitutional complaints, Reports fatigue and Reports weakness Eyes: Eyes: Reports as per HPI and Denies no additional eye complaints ENT: Denies system reviewed and no additional complaints, except as documented and Reports as per HPI Cardiovascular: Cardiovascular: Reports as per HPI, Reports no additional cardiovascular complaints, Denies acrocyanosis, Denies cool extremities, Denies chest pain, Denies leg edema, Reports lightheadedness, Denies palpitations and Denies dyspnea Respiratory: Respiratory: Reports as per HPI, Denies no additional respiratory complaints and Denies dyspnea Gastrointestinal: Gastrointestinal: Reports as per HPI and Denies no additional gastrointestinal complaints Genitourinary: Genitourinary: Reports no additional male genitourinary complaints and Reports as per HPI Musculoskeletal: Musculoskeletal: Reports no additional musculoskeletal complaints and Reports as per HPI Integumentary/Breasts: Skin/Breast: Reports system reviewed and no additional complaints, except as docu Neurologic: Reports system reviewed and no additional complaints, except as documented, Reports as per HPI and Reports weakness Psychiatric: Psychiatric: Reports no additional psychiatric complaints and Reports as per HPI Endocrine: Endocrine: Reports no additional endocrine complaints, Reports as per HPI, Reports fatigue and Denies palpitations Hematologic/Lymphatic: Hematologic/Lymphatic: Reports no additional hematologic/lymphatic complaints and Reports as per HPI Allergic/Immunologic: Allergic/Immunologic: Reports no additional allergic/immunologic complaints and Reports as per HPI [facility] Past Medical History Medical History (HFpEF) heart failure with preserved ejection fraction CKD (chronic kidney disease) Lung cancer Abdominal aortic aneurysm PVD (peripheral vascular disease) COPD (chronic obstructive pulmonary disease) Atrial fibrillation Family History Pertinent family history: No pertinent family history Social History Social History Patient Tobacco Use Status: Never used Tobacco Smoked in Last 30 Days: No Use of substances other than those prescribed or required for medical reasons: No Advance Directives: No Advance Directives Information Provided: No Do you have a plan to hurt others: No Plan Meds Allergies Allergy/AdvReac Type Severity Reaction Status Date / Time nicotine AdvReac Itching Verified 02/17/24 22:25 Active Medications: Current Medications Acetaminophen (Acetaminophen 325 Mg Tablet) 650 mg PO Q6H PRN PRN Reason: Pain, Mild (Pain Scale 1-3), fever or headache Albuterol Sulfate (Albuterol Sulfate 90 Mcg 8 Gm Inhaler) 2 puff INHALE Q4H PRN PRN Reason: Shortness Of Breath Or Wheezin Albuterol/Ipratropium (Albuterol/Iprat 2.5/0.5mg 3 Ml Ampul.Neb) 3 ml INHALE RQ4H [facility] Last Admin: 02/18/24 11:39 Dose: 3 ml Apixaban (Apixaban 5 Mg Tablet) 5 mg PO BID [facility] Last Admin: 02/18/24 10:13 Dose: 5 mg Aspirin (Aspirin Enteric Coated 81 Mg Tablet.Dr) 81 mg PO DAILY [facility] Last Admin: 02/18/24 10:13 Dose: 81 mg Atorvastatin Calcium (Atorvastatin Calcium 80 Mg Tablet) 80 mg PO DAILY [facility] Last Admin: 02/18/24 10:13 Dose: 80 mg Bupropion HCl (Bupropion Hcl Xl 300 Mg Tab.Er.24h) 300 mg PO DAILY [facility] Last Admin: 02/18/24 10:14 Dose: 300 mg Calcium Carbonate (Calcium Carbonate 750 Mg Tab.Chew) 750 mg PO Q4H PRN PRN Reason: Heartburn Digoxin (Digoxin 0.25 Mg Tablet) 0.25 mg PO Q6H [facility]; Protocol Stop: 02/19/24 07:01 Last Admin: 02/18/24 12:53 Dose: 0.25 mg Famotidine (Famotidine 20 Mg Tablet) 20 mg PO BID [facility] Last Admin: 02/18/24 10:14 Dose: 20 mg Finasteride (Finasteride 5 Mg Tablet) 5 mg PO DAILY [facility] Last Admin: 02/18/24 10:13 Dose: 5 mg Fluticasone/Umeclidinium/Vilanterol (Fluticasone/Umeclidinium/Vilanterol 100/62.5/25 Blst.W.Dev) 1 puff INHALE RDAILY [facility] Last Admin: 02/18/24 09:37 Dose: Not Given Furosemide (Furosemide 20 Mg/2 Ml Vial) 20 mg IVPUSH DAILY [facility]; Protocol Last Admin: 02/18/24 13:36 Dose: Not Given Albumin Human (Kedbumin 25 %) 100 mls @ 100 mls/hr IV Q6H [facility] Stop: 02/19/24 04:59 Last Infusion: 02/18/24 11:19 Dose: Infused Magnesium Hydroxide (Milk Of Magnesia 30 Ml Oral.Susp) 30 ml PO DAILY PRN PRN Reason: Constipation Melatonin (Melatonin 3 Mg Tablet) 6 mg PO BEDTIME PRN PRN Reason: Insomnia Midodrine (Midodrine Hcl 5 Mg Tablet) 5 mg PO TIDWM [facility] Last Admin: 02/18/24 12:43 Dose: 5 mg Omeprazole (Omeprazole 20 Mg Capsule.Dr) 20 mg PO BID@0630,1630 [facility] Last Admin: 02/18/24 10:13 Dose: 20 mg Oxycodone HCl (Oxycodone Hcl Immed Release 5 Mg Tablet) 5 mg PO Q6H PRN PRN Reason: Pain (Scale Score 4-6) Prednisone (Prednisone 20 Mg Tablet) 20 mg PO DAILY [facility] Last Admin: 02/18/24 12:42 Dose: 20 mg Sodium Chloride (0.9 % Sodium Chloride Flush 3 Ml Syringe) 3 ml IVFLUSH QSHIFT [facility] Tiotropium [place] (Tiotropium [place] 2.5 Mcg 1 Puff/2.5 Mcg Mist.Inhal) 1 puff INHALE RDAILY [facility] Last Admin: 02/18/24 10:35 Dose: Not Given Torsemide (Torsemide 20 Mg Tablet) 20 mg PO DAILY PRN; Protocol PRN Reason: Weight Gain Home Medications ?Medication ?Instructions ?Recorded ?Confirmed ?Last Taken ?Type albuterol sulfate 90 mcg/actuation 1 - 2 puff inhalation Q4-6H PRN 02/18/24 02/18/24 Unknown History aerosol inhaler Shortness Of Breath Or Wheezing apixaban 5 mg tablet (Eliquis) 5 mg PO BID 02/18/24 02/18/24 Unknown History aspirin 81 mg tablet,delayed 81 mg PO DAILY 02/18/24 02/18/24 Unknown History release atorvastatin 80 mg tablet 80 mg PO DAILY 02/18/24 02/18/24 Unknown History bupropion HCl 300 mg 24 hr tablet, 300 mg PO DAILY 02/18/24 02/18/24 Unknown History extended release famotidine 20 mg tablet 20 mg PO BID 02/18/24 02/18/24 Unknown History finasteride 5 mg tablet 5 mg PO DAILY 02/18/24 02/18/24 Unknown History fluticasone fur. 100 mcg-umeclid 1 inh inhalation DAILY 02/18/24 02/18/24 Unknown History 62.5 mcg-vilant 25 mcg inhalat.powder (Trelegy Ellipta) metoprolol succinate 25 mg 25 mg PO DAILY 02/18/24 02/18/24 Unknown History tablet,extended release 24 hr omeprazole 20 mg capsule,delayed 20 mg PO BID@0630,1630 02/18/24 02/18/24 Unknown History release oxycodone-acetaminophen 5 mg-325 1 tab PO Q6H PRN Pain (Scale Score 02/18/24 02/18/24 Unknown History mg tablet 4-6) tiotropium bromide 1.25 2 puff inhalation DAILY 02/18/24 02/18/24 Unknown History mcg/actuation mist for inhalation (Spiriva Respimat) torsemide 20 mg tablet 20 mg PO DAILY PRN Weight Gain 02/18/24 02/18/24 Unknown History Physical Exam 2 Vital Signs: Vital Signs: Last Vital Signs Temp 97.9 F 02/18/24 13:48 Pulse 103 H 02/18/24 13:48 Resp 30 H 02/18/24 13:48 BP 107/73 02/18/24 13:48 Pulse Ox 95 02/18/24 13:48 O2 Del Method Room Air 02/18/24 13:48 BMI result Body Mass Index 31.9 Const: General: comfortable and no acute distress O rientation/consciousness: patient oriented x3 HEENT: Other: Unremarkable Head: Yes normal to inspection Neck: Neck: Yes normal visual inspection Chest: Chest palpation & inspection: normal inspection of the chest Resp: Auscultation: clear to auscultation bilaterally Cardio: Palpation: normal PMI Heart sounds: S1 normal heart sound present, S2 normal heart sound present, no gallops, Murmur heart sound present systolic III/ and no rubs GI: Palpation (GI): Soft to palpation Back/Spine/Pelvis: Other: unremarkable Skin: General skin exam: no rashes or lesions noted Neuro: General: patient oriented x3 Extrem: General: Yes normal to inspection Psych: Mental Status: mental status grossly normal Objective Labs and Meds 02/17/24 22:44 02/17/24 22:44 Lab results: Laboratory Results - last 24 hr 02/17/24 02/17/24 02/18/24 22:44 22:49 05:20 WBC 11.4 H RBC 3.71 L Hgb 10.5 L Hct 33.8 L MCV 91.1 MCH 28.3 MCHC 31.1 RDW 18.7 H Plt Count 459 H MPV 8.2 L Immature Gran % (Auto) 0.7 H Neut % (Auto) 82.6 H Lymph % (Auto) 8.9 L [place] % (Auto) 6.6 Eos % (Auto) 0.7 Baso % (Auto) 0.5 Lymph # (Auto) 1.0 L [place] # (Auto) 0.8 Eos # (Auto) 0.1 Baso # (Auto) 0.1 Abs Immat Gran (auto) 0.08 H Absolute Neuts (auto) 9.4 H Absolute Nucleated RBC 0.080 H Nucleated RBC % (auto) 0.7 H PT 15.1 H INR 1.3 H VBG pH 7.44 H VBG pCO2 36 VBG pO2 21 VBG HCO3 24 VBG O2 Saturation 35.0 VBG Base Excess 1.1 Sodium 142 Potassium 4.6 Chloride 104 Carbon Dioxide 22 Anion Gap 21 H BUN 15 Creatinine 0.93 Estim Creat Clear Calc 86.2 Estimated GFR > 60 Random Glucose 85 Lactic Acid 2.4 H* Lactic Acid F/U @ 2Hr Lactic Acid F/U @ 4Hr Calcium 8.9 Total Bilirubin 1.3 H AST 20 ALT < 6 Alkaline Phosphatase 124 H Troponin I High Sens 17.2 B-Natriuretic Peptide 981 H Total Protein 6.9 Albumin 2.7 L COVID-19 ([facility]) COVID-19 Clin Com Influenza Type A (PCR) NEGATIVE Influenza Type B (PCR) NEGATIVE RSV RNA Qual (PCR) NEGATIVE SARS-CoV-2 RNA (RT-PCR) NEGATIVE 02/18/24 02/18/24 02/18/24 05:21 08:01 10:46 WBC RBC Hgb Hct MCV MCH MCHC RDW Plt Count MPV Immature Gran % (Auto) Neut % (Auto) Lymph % (Auto) [place] % (Auto) Eos % (Auto) Baso % (Auto) Lymph # (Auto) [place] # (Auto) Eos # (Auto) Baso # (Auto) Abs Immat Gran (auto) Absolute Neuts (auto) Absolute Nucleated RBC Nucleated RBC % (auto) PT INR VBG pH VBG pCO2 VBG pO2 VBG HCO3 VBG O2 Saturation VBG Base Excess Sodium Potassium Chloride Carbon Dioxide Anion Gap BUN Creatinine Estim Creat Clear Calc Estimated GFR Random Glucose Lactic Acid Lactic Acid F/U @ 2Hr 2.5 H* Lactic Acid F/U @ 4Hr 1.9 Calcium Total Bilirubin AST ALT Alkaline Phosphatase Troponin I High Sens B-Natriuretic Peptide Total Protein Albumin COVID-19 ([facility]) Negative COVID-19 Clin Com See Note Influenza Type A (PCR) Influenza Type B (PCR) RSV RNA Qual (PCR) SARS-CoV-2 RNA (RT-PCR) ECG Interpretation: EKG with underlying atrial fibrillation at a rate of 117/Min; right bundle- branch block pattern. Cannot exclude old lateral infarct. Imaging Radiologist's impression: Impressions Chest X-Ray 02/17/24 21:05 IMPRESSION: Dense left lung base with silhouetting of the diaphragm, consolidation/atelectasis. Electronically signed by: Jareth Ramirez MD 02/17/2024 11:[address] 02/18/24 04:43 IMPRESSION: *Near-complete left lower lobe atelectasis. No pulmonary consolidation or inflammatory changes identified to specifically suggest pneumonia. *Small left pleural effusion and moderate right pleural effusion. *Partially visualized abdominal aortic aneurysm measuring at least 5.0 cm in transaxial dimension. Recommend dedicated imaging of the aorta. The aorta may be imaged with dedicated aortic ultrasound. Based on published guidelines in J Am Mandy Radiol 2013; 10(10):789-794 and J Vasc Surg. 2018; 67:2-77, the recommendation for an abdominal aortic aneurysm with diameter 4.5-5.4 cm is vascular consultation and subsequent follow-up every 6 months. *Moderate-marked coronary artery calcific atherosclerosis including dense calcific atherosclerosis within the left anterior descending coronary artery. Electronically signed by: Javier Murphy MD 02/18/2024 06:14 AM [facility] Assessment and Plan (1) Atrial fibrillation with rapid ventricular response: Status: Acute Consider digoxin load followed by maintenance.? He can resume anticoagulation as he states he has not taken it recently. If blood pressure improves, low-dose beta-blockers. (2) Hypotension: Status: Acute Blood pressure data reviewed.? Upon arrival, it seems that resting blood pressure was 90/65 but with orthostatic changes, it went to as low as 67/44 mm Hg.? Unclear reasoning for this drop.? It seems that he was given IV fluids as well as antibiotics for possible infection.? Per ER notes, Flomax, torsemide were stopped during last admission.? Currently, midodrine has been added and may continue that. Plan Will need to review the recent hospitalization records as well as obtain records from last cardiology visit.? We will follow up with you. Discussed with Dr. Steel. Procedures Date of Service Date of Service: 02/18/24
[2024-02-18] MEDS: 0.9 % Sodium Chloride Flush 3 ML SYRINGE IVFLUSH ×2 (15:46→21:00)
[2024-02-18 16:59] LABS: Appearance Urine Clear; Color Urine Dark Yellow; Glucose Urine UA Negative (Negative); Leukocyte Esterase Urine Small (1+) (Negative); Nitrite Urine Negative (Negative); PH 5.5 (5.0-9.0); UMIC TRIGGER UACC YES; Urine Blood Moderate (2+) (Negative); Urine Ketones Trace mg/dL (Negative); Urine Protein 100 (2+) mg/dL (Neg-Trace)
[2024-02-18 17:13] LABS: Bacteria Urine None Seen (None Seen); RBC Urine >20 /HPF (0-2); UACC Culture Trigger YES
[2024-02-19] VITALS (16 sets, daily range): BP systolic 113–142; BP diastolic 72–93; PULSE 85–114; RESP 17–28; TEMP 36.2–36.6; O2SAT 93–100
--- NOTE | 2024-02-19 | ECG_ITS ---
Test Reason : rate fluctuations Blood Pressure : / mmHG Vent. Rate : 088 BPM Atrial Rate : 000 BPM P-R Int : 000 ms QRS Dur : 152 ms QT Int : 378 ms P-R-T Axes : 000 002 -48 degrees QTc Int : 457 ms Atrial fibrillation with premature ventricular or aberrantly conducted complexes Non-specific intra-ventricular conduction block T wave abnormality, consider anterior ischemia Abnormal ECG When compared with ECG of 17-FEB-2024 22:29, Questionable change in QRS axis Referred By: Elena Bradford Electronically Signed By:ROSALBA CRAWFORD MD
[2024-02-19] MEDS: Albuterol/Iprat 2.5/0.5MG 3 ML AMPUL.NEB INHALE ×5 (00:02→20:29)
[2024-02-19] MEDS: Digoxin 0.25 MG TABLET PO ×2 (03:05→09:09)
[2024-02-19] MEDS: Albumin Human 25 % 100 ML IV ×3 (03:05→19:44)
[2024-02-19] MEDS: Omeprazole 20 MG CAPSULE.DR PO ×2 (05:42→16:04)
[2024-02-19] MEDS: Fluticasone/Umeclidinium/Vilanterol 100/62.5/25 BLST.W.DEV 1 PUFF INHALE (08:17)
[2024-02-19] MEDS: Furosemide 20 MG/2 ML VIAL IVPUSH (09:08)
[2024-02-19] MEDS: Apixaban 5 MG TABLET PO ×2 (09:09→21:07)
[2024-02-19] MEDS: Midodrine HCl 5 MG TABLET PO ×2 (09:09→11:52)
[2024-02-19] MEDS: predniSONE 20 MG TABLET PO (09:09)
[2024-02-19] MEDS: Atorvastatin Calcium 80 MG TABLET PO (09:09)
[2024-02-19] MEDS: Aspirin Enteric Coated 81 MG TABLET.DR PO (09:09)
[2024-02-19] MEDS: buPROPion HCl XL 300 MG TAB.ER.24H PO (09:09)
[2024-02-19] MEDS: Famotidine 20 MG TABLET PO ×2 (09:09→21:07)
[2024-02-19] MEDS: Finasteride 5 MG TABLET PO (09:10)
[2024-02-19] MEDS: 0.9 % Sodium Chloride Flush 3 ML SYRINGE IVFLUSH ×2 (09:13→14:56)
--- NOTE | 2024-02-19 09:38 | MHC.CM.PN ---
IMM 02/19/24, Pt. lives in a [facility], he stays there and they help him find an apt. PCP confirmed: Babatunde Plascencia. HCP form to be completed here and added to chart, naming his daughter. Pt does not have home health services, he has a walker. He will need transportation at time of DC to get home. DCP; home with services. CM to follow and assist with DC plan.
--- NOTE | 2024-02-19 10:27 | PM.PNCARD ---
Subjective Subjective Date of Service: 02/19/24 Principal diagnosis: Atrial fibrillation, CHF Interval history: Patient says overall he feels better. His blood pressures improved. Although his heart rate remained still slightly elevated. Has received digoxin load. Shortness of breath is improved. Review of Systems Constitutional: Reports no additional constitutional complaints Eyes: Reports no additional eye complaints Cardiovascular: Denies chest pain, Reports rapid heart rate, Denies leg edema, Denies lightheadedness, Denies Loss of Consciousness and Reports dyspnea on exertion Respiratory: Reports dyspnea on exertion Physical Exam Vital Signs: Last Vital Signs Temp 97.5 F 02/19/24 07:30 Pulse 114 H 02/19/24 09:38 Resp 17 02/19/24 08:18 BP 131/89 02/19/24 09:38 Pulse Ox 97 02/19/24 07:30 O2 Del Method Room Air 02/19/24 07:30 BMI result Body Mass Index 33.8 Const General: cooperative, comfortable, no acute distress, alert and awake Nutritional Appearance: obese Orientation/consciousness: patient oriented x3 Neck Neck: Yes trachea midline, Yes supple and Yes no JVD Resp Effort & Inspection: decreased respiratory effort Auscultation: clear to auscultation bilaterally Cardio Jugular venous distension: no JVD Rate: tachycardic Rhythm: abnormal rhythm irregularly irregular Heart sounds: S1 normal heart sound present, S2 normal heart sound present, no click, no gallops and Murmur heart sound present systolic holo GI Auscultation: normal bowel sounds Skin General skin exam: no rashes or lesions noted Neuro General: patient oriented x3 and no focal motor deficits Extrem General: Yes no clubbing, cyanosis or edema Objective Labs and Meds 02/17/24 22:44 02/17/24 22:44 Lab results: Laboratory Results - last 24 hr 02/18/24 02/18/24 10:46 16:30 Lactic Acid F/U @ 4Hr 1.9 Urine Color Dark Yellow Urine Appearance Clear Urine pH 5.5 Ur Specific [place] 1.020 Urine Protein 100 (2+) H Urine Glucose (UA) Negative Urine Ketones Trace Urine Blood Moderate (2+) H Urine Nitrite Negative Ur Leukocyte Esterase Small (1+) H Urine RBC >20 H Urine WBC 11-20 H Ur Squamous Epith Cells 3-5 Urine Bacteria None Seen Hyaline Casts 11-20 Progress Note: A&P Assessment and plan (1) Atrial fibrillation with rapid ventricular response: Status: Acute Assessment and Plan: Atrial fibrillation with difficult control rate with low blood pressure. Blood pressure is not improved with midodrine therapy. Continue the same. Can add metoprolol 12.5 mg b.i.d. to his regimen. Also change digoxin to 0.25 mg daily he has renal function within normal limits. Digoxin assay in 1 week. Has severe biatrial enlargement with echocardiogram from outside hospital and unlikely that rhythm control would be possible in his case. Also has significant tricuspid regurgitation, see below. Importance of oral anticoagulation therapy was discussed. I would avoid use of aspirin if there are no other indications for it. Importance of compliance with medication was discussed. (2) (HFpEF) heart failure with preserved ejection fraction: Status: Acute Assessment and Plan: Heart failure preserved ejection fraction with EF of 40-50% with moderate to severe tricuspid regurgitation with severe biatrial enlargement. Clinically appears to be euvolemic and well compensated. Agree with torsemide dose. Continue to maintain potassium level about 4. Heart failure management discussed. Will follow with you Time Spent With Patient Time: Total time managing care of this patient today ____ minutes. Progress Note: Quality Stroke Does the patient have a stroke diagnosis?: No Procedures Date of Service Date of Service: 02/19/24
[2024-02-19] MEDS: Metoprolol Tartrate 12.5 MG HALFTAB PO ×2 (11:52→21:07)
--- NOTE | 2024-02-19 13:08 | P.PNIM_ITS ---
Subjective Subjective Date of Service: 02/19/24 Interval History: orthostasis afib -mild tachy with walking chf Review of Systems sob seems improve d Physical Exam 2 Vital Signs: Vital Signs: Last Vital Signs Temp 97.8 F 02/19/24 11:29 Pulse 91 02/19/24 11:29 Resp 17 02/19/24 11:29 BP 142/91 H 02/19/24 11:29 Pulse Ox 100 02/19/24 11:29 O2 Del Method Room Air 02/19/24 11:29 BMI result Body Mass Index 33.8 Appearance: Alert.? Oriented X3.?? cvs: rrr, [id number]. res: air entry fair, siminshed at bases , has few cracles left base, also has some scattered wheezing. abd: no rebound or guarding ,nt, bs present. ext pulses present , no cyanosis , b/l leg edema neuro: axo3 , nonfocal. Objective Data Active Medications Acetaminophen (Acetaminophen 325 Mg Tablet) 650 mg PO Q6H PRN PRN Reason: Pain, Mild (Pain Scale 1-3), fever or headache Albuterol Sulfate (Albuterol Sulfate 90 Mcg 8 Gm Inhaler) 2 puff INHALE Q4H PRN PRN Reason: Shortness Of Breath Or Wheezin Albuterol/Ipratropium (Albuterol/Iprat 2.5/0.5mg 3 Ml Ampul.Neb) 3 ml INHALE RQ4H [facility] Last Admin: 02/19/24 11:26 Dose: 3 ml Documented By: DIVYA Apixaban (Apixaban 5 Mg Tablet) 5 mg PO BID [facility] Last Admin: 02/19/24 09:09 Dose: 5 mg Documented By: PRINCESS Aspirin (Aspirin Enteric Coated 81 Mg Tablet.) 81 mg PO DAILY [facility] Last Admin: 02/19/24 09:09 Dose: 81 mg Documented By: PRINCESS Atorvastatin Calcium (Atorvastatin Calcium 80 Mg Tablet) 80 mg PO DAILY [facility] Last Admin: 02/19/24 09:09 Dose: 80 mg Documented By: PRINCESS Bupropion HCl (Bupropion Hcl Xl 300 Mg Tab.Er.24h) 300 mg PO DAILY [facility] Last Admin: 02/19/24 09:09 Dose: 300 mg Documented By: PRINCESS Calcium Carbonate (Calcium Carbonate 750 Mg Tab.Chew) 750 mg PO Q4H PRN PRN Reason: Heartburn Digoxin (Digoxin 0.125 Mg Tablet) 0.125 mg PO DAILY [facility]; Protocol Last Admin: 02/19/24 12:00 Dose: Not Given Documented By: PRINCESS Non-Admin Reason: Physician Held Med Famotidine (Famotidine 20 Mg Tablet) 20 mg PO BID [facility] Last Admin: 02/19/24 09:09 Dose: 20 mg Documented By: PRINCESS Finasteride (Finasteride 5 Mg Tablet) 5 mg PO DAILY [facility] Last Admin: 02/19/24 09:10 Dose: 5 mg Documented By: PRINCESS Fluticasone/Umeclidinium/Vilanterol (Fluticasone/Umeclidinium/Vilanterol 100/62.5/25 Blst.W.Dev) 1 puff INHALE RDAILY [facility] Last Admin: 02/19/24 08:17 Dose: 1 puff Documented By: DIVYA Furosemide (Furosemide 20 Mg/2 Ml Vial) 20 mg IVPUSH DAILY [facility]; Protocol Last Admin: 02/19/24 09:08 Dose: 20 mg Documented By: PRINCESS Albumin Human (Kedbumin 25 %) 100 mls @ 100 mls/hr IV Q6H [facility] Stop: 02/20/24 08:14 Magnesium Hydroxide (Milk Of Magnesia 30 Ml Oral.Susp) 30 ml PO DAILY PRN PRN Reason: Constipation Melatonin (Melatonin 3 Mg Tablet) 6 mg PO BEDTIME PRN PRN Reason: Insomnia Metoprolol Tartrate (Metoprolol Tartrate 12.5 Mg Halftab) 12.5 mg PO BID [facility]; Protocol Last Admin: 02/19/24 11:52 Dose: 12.5 mg Documented By: PRINCESS Midodrine (Midodrine Hcl 2.5 Mg Tablet) 2.5 mg PO TIDWM [facility] Omeprazole (Omeprazole 20 Mg Capsule.) 20 mg PO BID@0630,1630 [facility] Last Admin: 02/19/24 05:42 Dose: 20 mg Documented By: CLARISA Oxycodone HCl (Oxycodone Hcl Immed Release 5 Mg Tablet) 5 mg PO Q6H PRN PRN Reason: Pain (Scale Score 4-6) Prednisone (Prednisone 20 Mg Tablet) 20 mg PO DAILY [facility] Last Admin: 02/19/24 09:09 Dose: 20 mg Documented By: PRINCESS Sodium Chloride (0.9 % Sodium Chloride Flush 3 Ml Syringe) 3 ml IVFLUSH QSHIFT [facility] Last Admin: 02/19/24 09:13 Dose: 3 ml Documented By: PRINCESS Tiotropium [place] (Tiotropium [place] 2.5 Mcg 1 Puff/2.5 Mcg Mist.Inhal) 1 puff INHALE RDAILY [facility] Last Admin: 02/18/24 10:35 Dose: Not Given Documented By: VANNA Non-Admin Reason: Duplicate Order Torsemide (Torsemide 20 Mg Tablet) 20 mg PO DAILY PRN; Protocol PRN Reason: Weight Gain Labs 02/17/24 22:44 02/17/24 22:44 Labs: Laboratory Results - last 24 hr 02/18/24 16:30 Urine Color Dark Yellow Urine Appearance Clear Urine pH 5.5 Ur Specific [place] 1.020 Urine Protein 100 (2+) H Urine Glucose (UA) Negative Urine Ketones Trace Urine Blood Moderate (2+) H Urine Nitrite Negative Ur Leukocyte Esterase Small (1+) H Urine RBC >20 H Urine WBC 11-20 H Ur Squamous Epith Cells 3-5 Urine Bacteria None Seen Hyaline Casts - Microbiology Microbiology Results: Microbiology 02/18/24 05:21 Blood Culture - Preliminary Blood - Venous No growth after 24 hours. 02/18/24 05:21 Blood Culture - Preliminary Blood - Venous No growth after 24 hours. Assessment and Plan (1) (HFpEF) heart failure with preserved ejection fraction: Status: Acute (2) Atrial fibrillation with rapid ventricular response: Status: Acute Plan 68 y/o male ex smoker (60 pack year hx),COPD CHF AFib on Eliquis -came with dyspnea : dyspnea -possible ChfpEF excerebation acute on ch.in setting of afib and orthostatic hypotension bnp 981 Daily weights, I&O monitoring plan: start on iv lasix . sob seems improving cardiology eval noted -seems improving ,will switch to po lasix . Mild copd excerebation/atlecatsis: continue nebs,steriods ,antibiotics,incentive spriometry and chest physiotherapy. possible orthostatic hypotension:improving tiburcio stocking,adjusted midorine afib: mild elevated hr with walking hold bb once,add digoxin loading, bp acceptable , eliquis ct abd showed aortic aneurysm measuring at least 5.0 as per [facility] records-outpatient vascular eval generlaised weak-pt added dvt prophylax: continue eliquis ongong need for hospitlisation: CHF exacerbation, COPD, orthostasis-patient had IV Lasix, electrolyte monitoring and tele monitoring as well as cardiology evaluation, moniter respiratory status closely. Quality Stroke Does the patient have a stroke diagnosis?: No VTE Prior VTE?: No VTE Risk Level:: Medical - moderate - high VTE Device Contraindication: N/A - Device Ordered VTE Drug Contraindication: N/A - Med Ordered
[2024-02-19] MEDS: Midodrine HCl 2.5 MG TABLET PO (16:04)
[2024-02-20] VITALS (17 sets, daily range): BP systolic 106–168; BP diastolic 69–109; PULSE 64–111; RESP 15–28; TEMP 36.1–37.3; O2SAT 93–97; BMI 33.8
[2024-02-20] MEDS: 0.9 % Sodium Chloride Flush 3 ML SYRINGE IVFLUSH ×4 (00:06→21:48)
[2024-02-20] MEDS: Albuterol/Iprat 2.5/0.5MG 3 ML AMPUL.NEB INHALE ×5 (00:41→18:53)
[2024-02-20] MEDS: Albumin Human 25 % 100 ML IV ×2 (03:03→07:34)
[2024-02-20] MEDS: Omeprazole 20 MG CAPSULE.DR PO ×2 (05:52→16:30)
[2024-02-20] MEDS: Finasteride 5 MG TABLET PO (08:10)
[2024-02-20] MEDS: Metoprolol Tartrate 12.5 MG HALFTAB PO (08:10)
[2024-02-20] MEDS: Famotidine 20 MG TABLET PO ×2 (08:10→21:47)
[2024-02-20] MEDS: Apixaban 5 MG TABLET PO ×2 (08:10→21:47)
[2024-02-20] MEDS: Midodrine HCl 2.5 MG TABLET PO ×3 (08:10→16:30)
[2024-02-20] MEDS: Atorvastatin Calcium 80 MG TABLET PO (08:10)
[2024-02-20] MEDS: predniSONE 20 MG TABLET PO (08:10)
[2024-02-20] MEDS: buPROPion HCl XL 300 MG TAB.ER.24H PO (08:10)
[2024-02-20] MEDS: Aspirin Enteric Coated 81 MG TABLET.DR PO (08:10)
[2024-02-20] MEDS: Furosemide 20 MG/2 ML VIAL IVPUSH (08:11)
[2024-02-20] MEDS: Digoxin 0.125 MG TABLET PO (08:11)
[2024-02-20] MEDS: Fluticasone/Umeclidinium/Vilanterol 100/62.5/25 BLST.W.DEV 1 PUFF INHALE (08:18)
[2024-02-20 09:09] LABS: Anion Gap 14 (12-20); Blood Urea Nitrogen 16 mg/dL (9-16); Calcium 9.5 mg/dL (8.4-10.2); Carbon Dioxide 24 mmol/L (22-29); Chloride 104 mmol/L (96-108); Creatinine Clr Calc Pharmacy 91.6; Estimated Glomerular Filt Rate > 60; Glucose Random 79 mg/dL (60-115); Potassium 3.9 mmol/L (3.3-5.1); Sodium 138 mmol/L (135-145)
--- NOTE | 2024-02-20 10:04 | P.PNCA_ITS ---
Subjective Subjective Date of Service: 02/20/24 Principal diagnosis: Atrial fibrillation, CHF Interval history: Patient with much improved shortness of breath. Heart rate is much better control. No other symptoms. Review of Systems Review of Systems Yes all other systems are reviewed and are negative Physical Exam Vital Signs: Last Vital Signs Temp 97.1 F 02/20/24 07:38 Pulse 76 02/20/24 08:20 Resp 15 02/20/24 08:20 BP 124/78 02/20/24 07:55 Pulse Ox 96 02/20/24 07:38 O2 Del Method Room Air 02/20/24 07:38 BMI result Body Mass Index 33.8 Const General: cooperative, comfortable, no acute distress, alert and awake Nutritional Appearance: obese Orientation/consciousness: patient oriented x3 Neck Neck: Yes trachea midline, Yes supple and Yes no JVD Resp Effort & Inspection: decreased respiratory effort Auscultation: clear to auscultation bilaterally Cardio Jugular venous distension: no JVD Rate: tachycardic Rhythm: abnormal rhythm irregularly irregular Heart sounds: S1 normal heart sound present, S2 normal heart sound present, no click, no gallops and Murmur heart sound present systolic holo GI Auscultation: normal bowel sounds Skin General skin exam: no rashes or lesions noted Neuro General: patient oriented x3 and no focal motor deficits Extrem General: Yes no clubbing, cyanosis or edema Objective Labs and Meds 02/17/24 22:44 02/20/24 08:35 Lab results: Laboratory Results - last 24 hr 02/20/24 08:35 Sodium 138 Potassium 3.9 Chloride 104 Carbon Dioxide 24 Anion Gap 14 BUN 16 Creatinine 0.90 Estim Creat Clear Calc 91.6 Estimated GFR > 60 Random Glucose 79 Calcium 9.5 D Progress Note: A&P Assessment and plan (1) (HFpEF) heart failure with preserved ejection fraction: Status: Acute Assessment and Plan: Heart failure with mid-range EF with significant biatrial enlargement with moderate to severe tricuspid regurgitation with chronic atrial fibrillation for many years. Clinically euvolemic and well compensated. Switch to oral diuretics. Heart failure management discussed. Daily weight monitoring avoidance of salt loading was discussed. Discussed long-term about heart failure management overall high risk for readmission. (2) Atrial fibrillation with rapid ventricular response: Status: Acute Assessment and Plan: Chronic atrial fibrillation at least for 3 years. Has significant biatrial enlargement by echocardiogram at an outside hospital. Unlikely to pursue rhythm control approach although this may benefit him. Continue rate control with metoprolol and digoxin. Continue midodrine for low blood pressure. Importance of full oral anticoagulation was discussed. Continue Eliquis 5 mg b.i.d.. Stop aspirin therapy. Will sign of the case. 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 Time Spent With Patient Time: Total time managing care of this patient today ____ minutes. Progress Note: Quality Stroke Does the patient have a stroke diagnosis?: No Procedures Date of Service Date of Service: 02/20/24
[2024-02-20] MEDS: Metoprolol Succinate ER 25 MG TAB.ER.24H PO (10:15)
--- NOTE | 2024-02-20 10:24 | PC.NURSE ---
Nausea, vomited small amount of gastric content this am .
--- NOTE | 2024-02-20 10:25 | PC.NURSE ---
Ambulated on the hallway 50 feet with a walker , pt 's gait very wobbly , stated that felt shaky ,Dr Steel was notified , Discharge will be on hold for today
[2024-02-20] MEDS: Potassium Chloride ER 20 MEQ TAB.ER.PRT PO (12:34)
--- NOTE | 2024-02-20 13:41 | P.PNIM_ITS ---
Subjective Subjective Date of Service: 02/20/24 Interval History: chf Review of Systems feels sob with excerion denies any chest pain Physical Exam 2 Vital Signs: Vital Signs: Last Vital Signs Temp 97.5 F 02/20/24 11:06 Pulse 95 02/20/24 11:43 Resp 15 02/20/24 11:43 BP 162/103 H 02/20/24 11:06 Pulse Ox 97 02/20/24 11:06 O2 Del Method Room Air 02/20/24 11:06 BMI result Body Mass Index 33.8 Appearance: Alert.? Oriented X3.?? cvs: rrr, [id number]. res: air entry fair, diminshed at bases , has few cracles left base abd: no rebound or guarding ,nt, bs present. ext pulses present , no cyanosis , b/l leg edema neuro: axo3 , nonfocal. Objective Data Active Medications Acetaminophen (Acetaminophen 325 Mg Tablet) 650 mg PO Q6H PRN PRN Reason: Pain, Mild (Pain Scale 1-3), fever or headache Albuterol Sulfate (Albuterol Sulfate 90 Mcg 8 Gm Inhaler) 2 puff INHALE Q4H PRN PRN Reason: Shortness Of Breath Or Wheezin Albuterol/Ipratropium (Albuterol/Iprat 2.5/0.5mg 3 Ml Ampul.Neb) 3 ml INHALE RQ4H [facility] Last Admin: 02/20/24 11:42 Dose: 3 ml Documented By: TABATHA Apixaban (Apixaban 5 Mg Tablet) 5 mg PO BID [facility] Last Admin: 02/20/24 08:10 Dose: 5 mg Documented By: MAI Atorvastatin Calcium (Atorvastatin Calcium 80 Mg Tablet) 80 mg PO DAILY [facility] Last Admin: 02/20/24 08:10 Dose: 80 mg Documented By: MAI Bupropion HCl (Bupropion Hcl Xl 300 Mg Tab.Er.24h) 300 mg PO DAILY [facility] Last Admin: 02/20/24 08:10 Dose: 300 mg Documented By: MAI Calcium Carbonate (Calcium Carbonate 750 Mg Tab.Chew) 750 mg PO Q4H PRN PRN Reason: Heartburn Digoxin (Digoxin 0.125 Mg Tablet) 0.125 mg PO DAILY [facility]; Protocol Last Admin: 02/20/24 08:11 Dose: 0.125 mg Documented By: MAI Famotidine (Famotidine 20 Mg Tablet) 20 mg PO BID [facility] Last Admin: 02/20/24 08:10 Dose: 20 mg Documented By: MAI Finasteride (Finasteride 5 Mg Tablet) 5 mg PO DAILY [facility] Last Admin: 02/20/24 08:10 Dose: 5 mg Documented By: MAI Fluticasone/Umeclidinium/Vilanterol (Fluticasone/Umeclidinium/Vilanterol 100/62.5/25 Blst.W.Dev) 1 puff INHALE RDAILY [facility] Last Admin: 02/20/24 08:18 Dose: 1 puff Documented By: TABATHA Furosemide (Furosemide 20 Mg/2 Ml Vial) 20 mg IVPUSH DAILY [facility]; Protocol Magnesium Hydroxide (Milk Of Magnesia 30 Ml Oral.Susp) 30 ml PO DAILY PRN PRN Reason: Constipation Melatonin (Melatonin 3 Mg Tablet) 6 mg PO BEDTIME PRN PRN Reason: Insomnia Metoprolol Succinate (Metoprolol Succinate Er 25 Mg Tab.Er.24h) 25 mg PO DAILY [facility]; Protocol Last Admin: 02/20/24 10:15 Dose: 12.5 mg Documented By: MAI Comments: pt received 12.5 in am Midodrine (Midodrine Hcl 2.5 Mg Tablet) 2.5 mg PO TIDWM [facility] Last Admin: 02/20/24 12:34 Dose: 2.5 mg Documented By: MAI Omeprazole (Omeprazole 20 Mg Capsule.) 20 mg PO BID@0630,1630 [facility] Last Admin: 02/20/24 05:52 Dose: 20 mg Documented By: ANGELA Oxycodone HCl (Oxycodone Hcl Immed Release 5 Mg Tablet) 5 mg PO Q6H PRN PRN Reason: Pain (Scale Score 4-6) Prednisone (Prednisone 20 Mg Tablet) 20 mg PO DAILY [facility] Last Admin: 02/20/24 08:10 Dose: 20 mg Documented By: MAI Sodium Chloride (0.9 % Sodium Chloride Flush 3 Ml Syringe) 3 ml IVFLUSH QSHIFT [facility] Last Admin: 02/20/24 07:34 Dose: 3 ml Documented By: MAI Tiotropium [place] (Tiotropium [place] 2.5 Mcg 1 Puff/2.5 Mcg Mist.Inhal) 1 puff INHALE RDAILY [facility] Last Admin: 02/18/24 10:35 Dose: Not Given Documented By: VANNA Non-Admin Reason: Duplicate Order Torsemide (Torsemide 20 Mg Tablet) 20 mg PO DAILY PRN; Protocol PRN Reason: Weight Gain Labs 02/17/24 22:44 02/20/24 08:35 Labs: Laboratory Results - last 24 hr 02/20/24 08:35 Anion Gap 14 Estim Creat Clear Calc 91.6 Estimated GFR > 60 Random Glucose 79 Calcium 9.5 D Microbiology Microbiology Results: Microbiology 02/18/24 Unknown Urine Culture - Final Urine clean catch - Clean Catch Midstream 02/18/24 05:21 Blood Culture - Preliminary Blood - Venous No growth after 48 hours. 02/18/24 05:21 Blood Culture - Preliminary Blood - Venous No growth after 48 hours. Assessment and Plan (1) (HFpEF) heart failure with preserved ejection fraction: Status: Acute (2) Atrial fibrillation with rapid ventricular response: Status: Acute Plan 68 y/o male ex smoker (60 pack year hx),COPD CHF AFib on Eliquis -came with dyspnea : dyspnea -possible ChfpEF excerebation acute on ch.in setting of afib and orthostatic hypotension bnp 981 Daily weights, I&O monitoring(875ml negative) plan: start on iv lasix . sob seems improvingbut still has sob with minimum excersion with walking continue iv lasix for 1 more day. Mild copd excerebation/atlecatsis: continue nebs,steriods ,antibiotics,incentive spriometry and chest physiotherapy. possible orthostatic hypotension:improving tiburcio stocking,adjusted midorine afib: mild elevated hr with walking hold bb once,add digoxin loading, bp acceptable , eliquis ct abd showed aortic aneurysm measuring at least 5.0 as per [facility] records-outpatient vascular eval generlaised weak-pt added dvt prophylax: continue eliquis ongong need for hospitlisation: CHF exacerbation, COPD, orthostasis-patient had IV Lasix, electrolyte monitoring and tele monitoring as well as cardiology evaluation, moniter respiratory status closely. Quality Stroke Does the patient have a stroke diagnosis?: No VTE Prior VTE?: No VTE Risk Level:: Medical - moderate - high VTE Device Contraindication: N/A - Device Ordered VTE Drug Contraindication: N/A - Med Ordered
[2024-02-20] MEDS: Albuterol Sulfate 90 MCG 8 GM INHALER 2 PUFF INHALE (22:19)
[2024-02-21] VITALS (15 sets, daily range): BP systolic 101–151; BP diastolic 63–111; PULSE 102–120; RESP 18–24; TEMP 36.1–36.5; O2SAT 93–97; BMI 33.7
[2024-02-21] MEDS: Omeprazole 20 MG CAPSULE.DR PO ×2 (05:43→17:45)
[2024-02-21] MEDS: Albuterol/Iprat 2.5/0.5MG 3 ML AMPUL.NEB INHALE ×4 (07:59→19:22)
[2024-02-21] MEDS: Fluticasone/Umeclidinium/Vilanterol 100/62.5/25 BLST.W.DEV 1 PUFF INHALE (07:59)
[2024-02-21] MEDS: Midodrine HCl 2.5 MG TABLET PO ×3 (09:29→17:45)
[2024-02-21] MEDS: Metoprolol Succinate ER 25 MG TAB.ER.24H PO (09:29)
[2024-02-21] MEDS: Famotidine 20 MG TABLET PO ×2 (09:29→21:19)
[2024-02-21] MEDS: Apixaban 5 MG TABLET PO ×2 (09:29→21:19)
[2024-02-21] MEDS: predniSONE 20 MG TABLET PO (09:29)
[2024-02-21] MEDS: buPROPion HCl XL 300 MG TAB.ER.24H PO (09:29)
[2024-02-21] MEDS: Digoxin 0.125 MG TABLET PO (09:30)
[2024-02-21] MEDS: Finasteride 5 MG TABLET PO (09:30)
[2024-02-21] MEDS: Atorvastatin Calcium 80 MG TABLET PO (09:30)
[2024-02-21] MEDS: 0.9 % Sodium Chloride Flush 3 ML SYRINGE IVFLUSH ×2 (09:30→17:45)
[2024-02-21] MEDS: Furosemide 20 MG/2 ML VIAL IVPUSH (09:33)
--- NOTE | 2024-02-21 13:59 | HO.PM.IMPN ---
Subjective Subjective Date of Service: 02/21/24 Review of Systems Follow up CHF, afib sitting up in chair reports sob Physical Exam Vital Signs: Vital Signs: Last Vital Signs Temp 97.3 F 02/21/24 11:20 Pulse 109 H 02/21/24 11:28 Resp 18 02/21/24 11:28 BP 134/91 H 02/21/24 11:20 Pulse Ox 97 02/21/24 11:20 O2 Del Method Room Air 02/21/24 11:20 BMI result Body Mass Index 33.7 Appearing in no acute distress lung sounds are clear to auscultation heart regular rate rhythm, clear S1, S2 positive bowel sounds, abdomen is soft, nontender neuro patient is alert x3, no focal deficits Objective Data Active Medications Acetaminophen (Acetaminophen 325 Mg Tablet) 650 mg PO Q6H PRN PRN Reason: Pain, Mild (Pain Scale 1-3), fever or headache Albuterol Sulfate (Albuterol Sulfate 90 Mcg 8 Gm Inhaler) 2 puff INHALE Q4H PRN PRN Reason: Shortness Of Breath Or Wheezin Last Admin: 02/20/24 22:19 Dose: 2 puff Documented By: VINICIUS Albuterol/Ipratropium (Albuterol/Iprat 2.5/0.5mg 3 Ml Ampul.Neb) 3 ml INHALE RQ4H [facility] Last Admin: 02/21/24 11:27 Dose: 3 ml Documented By: DIVYA Apixaban (Apixaban 5 Mg Tablet) 5 mg PO BID [facility] Last Admin: 02/21/24 09:29 Dose: 5 mg Documented By: MAI Atorvastatin Calcium (Atorvastatin Calcium 80 Mg Tablet) 80 mg PO DAILY [facility] Last Admin: 02/21/24 09:30 Dose: 80 mg Documented By: MAI Bupropion HCl (Bupropion Hcl Xl 300 Mg Tab.Er.24h) 300 mg PO DAILY [facility] Last Admin: 02/21/24 09:29 Dose: 300 mg Documented By: MAI Calcium Carbonate (Calcium Carbonate 750 Mg Tab.Chew) 750 mg PO Q4H PRN PRN Reason: Heartburn Digoxin (Digoxin 0.125 Mg Tablet) 0.125 mg PO DAILY [facility]; Protocol Last Admin: 02/21/24 09:30 Dose: 0.125 mg Documented By: MAI Famotidine (Famotidine 20 Mg Tablet) 20 mg PO BID [facility] Last Admin: 02/21/24 09:29 Dose: 20 mg Documented By: MAI Finasteride (Finasteride 5 Mg Tablet) 5 mg PO DAILY [facility] Last Admin: 02/21/24 09:30 Dose: 5 mg Documented By: MAI Fluticasone/Umeclidinium/Vilanterol (Fluticasone/Umeclidinium/Vilanterol 100/62.5/25 Blst.W.Dev) 1 puff INHALE RDAILY [facility] Last Admin: 02/21/24 07:59 Dose: 1 puff Documented By: DIVYA Furosemide (Furosemide 20 Mg/2 Ml Vial) 20 mg IVPUSH DAILY [facility]; Protocol Last Admin: 02/21/24 09:33 Dose: 20 mg Documented By: MAI Magnesium Hydroxide (Milk Of Magnesia 30 Ml Oral.Susp) 30 ml PO DAILY PRN PRN Reason: Constipation Melatonin (Melatonin 3 Mg Tablet) 6 mg PO BEDTIME PRN PRN Reason: Insomnia Metoprolol Succinate (Metoprolol Succinate Er 25 Mg Tab.Er.24h) 25 mg PO DAILY [facility]; Protocol Last Admin: 02/21/24 09:29 Dose: 25 mg Documented By: MAI Midodrine (Midodrine Hcl 2.5 Mg Tablet) 2.5 mg PO TIDWM [facility] Last Admin: 02/21/24 13:07 Dose: 2.5 mg Documented By: MAI Omeprazole (Omeprazole 20 Mg Capsule.) 20 mg PO BID@0630,1630 [facility] Last Admin: 02/21/24 05:43 Dose: 20 mg Documented By: VINICIUS Oxycodone HCl (Oxycodone Hcl Immed Release 5 Mg Tablet) 5 mg PO Q6H PRN PRN Reason: Pain (Scale Score 4-6) Prednisone (Prednisone 20 Mg Tablet) 20 mg PO DAILY [facility] Last Admin: 02/21/24 09:29 Dose: 20 mg Documented By: MAI Sodium Chloride (0.9 % Sodium Chloride Flush 3 Ml Syringe) 3 ml IVFLUSH QSHIFT [facility] Last Admin: 02/21/24 09:30 Dose: 3 ml Documented By: MAI Tiotropium [place] (Tiotropium [place] 2.5 Mcg 1 Puff/2.5 Mcg Mist.Inhal) 1 puff INHALE RDAILY [facility] Last Admin: 02/18/24 10:35 Dose: Not Given Documented By: VANNA Non-Admin Reason: Duplicate Order Torsemide (Torsemide 20 Mg Tablet) 20 mg PO DAILY PRN; Protocol PRN Reason: Weight Gain Labs 02/17/24 22:44 02/20/24 08:35 Microbiology Microbiology Results: Microbiology 02/18/24 Unknown Urine Culture - Final Urine clean catch - Clean Catch Midstream Assessment and Plan (1) (HFpEF) heart failure with preserved ejection fraction: Status: Acute Plan 68 y/o male ex smoker (60 pack year hx),COPD CHF AFib on Eliquis that came in with dyspnea Heart failure exacerbation with preserved ejection fraction. Likely in the setting of atrial fibrillation BNP 981 IV Lasix 20 mg daily Cardiology following Reports increased shortness of breath today, recheck BNP and chest x-ray Mild COPD exacerbation Continue albuterol, steroids Incentive spirometry Mild copd excerebation/atlecatsis continue nebs, steroids ,antibiotics,incentive spriometry and chest physiotherapy. Possible orthostatic hypotension:improving tiburcio stocking,adjusted midorine Paroxysmal atrial fibrillation mild elevated hr with walking Continue metoprolol, digoxin and Eliquis History of aortic aneurysm measuring 5.0 As per [facility] records, outpatient vascular follow-u DVT prophylaxis with Eliquis Full code Attending Dr. German Quality Stroke Does the patient have a stroke diagnosis?: No VTE Prior VTE?: No VTE Risk Level:: Medical - moderate - high VTE Device Contraindication: N/A - Device Ordered VTE Drug Contraindication: N/A - Med Ordered
--- NOTE | 2024-02-21 14:42 | MHC.CM.PN ---
Pt not ready to DC, he is SOB today. PT has rec home services, accepted by [facility]. CM to follow for DC needs.
[2024-02-21 15:13] LABS: B Type Natriuretic Peptide 1658 pg/mL (<100)
[2024-02-21] MEDS: Furosemide 20 MG/2 ML VIAL 40 MG IVPUSH (17:46)
[2024-02-21] MEDS: Albuterol Sulfate 90 MCG 8 GM INHALER 2 PUFF INHALE (21:19)
[2024-02-22] VITALS (13 sets, daily range): BP systolic 96–147; BP diastolic 58–98; PULSE 67–114; RESP 16–20; TEMP 36.1–36.7; O2SAT 92–98; BMI 33.5
[2024-02-22] MEDS: Omeprazole 20 MG CAPSULE.DR PO ×2 (05:47→17:58)
--- NOTE | 2024-02-22 07:00 | CA_ITS ---
Transthoracic Echocardiogram Patient (Last, First, Middle): Alan Banerjee, Gender: Male Date of : 1955 Age: 68 Procedure Date: 02/22/2024 Procedure Type: Transthoracic [place] [facility] [place]: 172.72 cm Weight: 99.79 kg BSA: 2.13 m2 Heart Rate: 109 bpm BP: 134 / 98 mmHg Instrument Technologist: KAYCE Referring MD: Ros Swartz NP Combine Driver: Sherwin Muller MD Symptoms: elevated bnp Study Quality: Technically Difficult ECG Rhythm: Atrial Fibrillation Conclusions: - 1. Normal LV ejection fraction of 60 65% with mild LVH 2. Biatrial enlargement, right greater than left 3. Moderately dilated right ventricle with moderate to severe RV systolic dysfunction 4. Moderate to severe tricuspid regurgitation 5. Upper limits of normal RV systolic pressure with normal right atrial pressures 6. Small loculated pericardial effusion Findings Left Ventricle Normal left ventricular size and systolic function. There is mildly increased left ventricular wall thickness. The visually estimated ejection fraction is between 60-65%. There is a flattened septum in diastole ( D shaped left ventricle) consistent with right ventricular volume overload. Diastolic function is indeterminate on the basis of available data. Right Ventricle Moderately increased right ventricular cavity size. There is moderate to severely decreased right ventricular systolic function. Atria The left atrium is moderately dilated. Interatrial shunt cannot be excluded. The right atrium is severely dilated. Aortic Valve There is mild calcification of the aortic valve. There is no aortic valve stenosis. There is no aortic valve regurgitation. Mitral Valve There is mild anterior and severe posterior mitral leaflet thickening. There is severe mitral annular calcification. There is trace mitral valve regurgitation. There is no mitral valve stenosis. Pulmonic Valve The pulmonic valve was not well visualized. Tricuspid Valve Likely normal tricuspid valve structure and function. There is moderate to severe tricuspid valve regurgitation. Normal right atrial pressure. There is no evidence of pulmonary hypertension. Great Vessels The aorta was not well visualized. The pulmonary artery was not well visualized. There is mild dilatation of the ascending aorta measuring 3.90 cm. Venous The inferior vena cava is normal in size and collapses greater than 50% with inspiration. Pericardium/Pleural There is a small loculated pericardial effusion overlying the left ventricle. Prior Study Comparison No prior study available for comparison. Measurements 2D Linear Measurements IVSd: 1.37 0.6-0.9/0.6-1.0 cm LVIDd: 3.95 3.9-5.3/4.2-5.9 cm LVIDd Index: 1.85 2.4-3.2/2.2-3.1 cm/m2 LVIDs: 2.22 2.0-3.6 cm LVPWd: 1.08 0.7-1.1 cm LA Diam: 4.90 2.7-3.8/3.0-4.0 cm LAIDs Index: 2.30 1.5-2.3 cm/m2 LV Mass: 208.53 67-162/88-224 g LV Mass Index: 97.90 43-95/49-115 g/m2 LVOT Diam: 2.10 3.0+(-)1.3 cm 2D Systolic Function EF 4C: 62.30 >55% EF 2C: 46.20 >55% Mitral Valve MV VTI: 0.22 MV Pk Jonathan: 1.25 MV Mn Jonathan: 0.76 MV Pk Grad: 6.00 MV Mn Grad: 3.00 MV Pk E: 1.20 MV Decel Time: 201.00 E'Lateral: 8.12 E'Medial: 7.18 E/E' Med: 16.70 E/E' Lat: 14.80 PHT: 59.00 MVA PHT: 3.73 MVA Continuity: 1.49 Decel [place]: 5.96 Aortic Valve AoV Pk Jonathan: 0.98 AoV Mn Jonathan: 0.71 AoV VTI: 0.14 AoV Pk Grad: 4.00 Aov Mn Grad: 2.00 AMI Cont.VTI: 2.30 LVOT LVOT Pk Jonathan: 0.69 LVOT Mn Jonathan: 0.41 LVOT VTI: 0.10 LVOT Pk Grad: 2.00 LVOT Mn Grad: 1.00 LVOT Diam: 2.10 LVOT Area: 3.46 Diastolic Function MV Pk E: 1.20 E'Medial: 7.18 E/E' Med: 16.70 E' Laterial: 8.12 E/E' Lat: 14.80 Right Ventricle TAPSE (mm): 13.80 TVS' Jonathan: 7.94 Tricuspid Valve TR Pk Jonathan: 2.96 TR Pk Grad: 35.00 RA Press: 3.00 RVSP: 38.00 Great Vessels Aorta Sinus of Valsalva: 3.80 2.0-3.5 cm Ao Asc: 3.90 2.1-3.4 cm Updated in Other Vendor System with Status of Final Sherwin Muller MD electronically signed on 02/22/2024 11:36:36 AM with status of Final
[2024-02-22] MEDS: buPROPion HCl XL 300 MG TAB.ER.24H PO (07:58)
[2024-02-22] MEDS: Digoxin 0.125 MG TABLET PO (07:58)
[2024-02-22] MEDS: Atorvastatin Calcium 80 MG TABLET PO (07:59)
[2024-02-22] MEDS: Famotidine 20 MG TABLET PO ×2 (07:59→20:33)
[2024-02-22] MEDS: predniSONE 20 MG TABLET PO (07:59)
[2024-02-22] MEDS: Apixaban 5 MG TABLET PO ×2 (07:59→20:32)
[2024-02-22] MEDS: Metoprolol Succinate ER 25 MG TAB.ER.24H PO ×2 (07:59→20:32)
[2024-02-22] MEDS: Midodrine HCl 2.5 MG TABLET PO ×3 (07:59→17:58)
[2024-02-22] MEDS: Finasteride 5 MG TABLET PO (08:00)
[2024-02-22] MEDS: Furosemide 20 MG/2 ML VIAL 40 MG IVPUSH ×2 (08:00→18:32)
[2024-02-22] MEDS: 0.9 % Sodium Chloride Flush 3 ML SYRINGE IVFLUSH ×3 (08:00→20:33)
[2024-02-22] MEDS: ondansetron HCL 4 MG/2 ML VIAL IVPUSH (08:06)
[2024-02-22 10:15] LABS: Hematocrit 32.7 % (42.0-52.0); Hemoglobin 10.6 g/dl (14.0-18.0); Mean Corpuscular HGB Conc 32.4 g/dl (31.0-36.0); Mean Corpuscular Hemoglobin 28.5 pg (27.0-33.0); Mean Corpuscular Volume 87.9 fL (80.0-98.0); Mean Platelet Volume 8.3 fL (9.4-12.4); Platelet Count 481 X10*3/uL (160-400); Red Blood Count 3.72 X10*6/uL (4.60-5.80); Red Cell Distribution Width 18.6 % (11.0-16.0); White Blood Count 14.1 X10*3/uL (4.8-10.8)
[2024-02-22 10:17] LABS: NRBC Pct Auto 2.6 /100WBC (0.0-0.2)
[2024-02-22 10:36] LABS: Anion Gap 18 (12-20); Blood Urea Nitrogen 28 mg/dL (9-16); Calcium 10.1 mg/dL (8.4-10.2); Carbon Dioxide 27 mmol/L (22-29); Chloride 96 mmol/L (96-108); Estimated Glomerular Filt Rate > 60; Glucose Random 95 mg/dL (60-115); Potassium 3.8 mmol/L (3.3-5.1); Sodium 137 mmol/L (135-145)
[2024-02-22 10:39] LABS: B Type Natriuretic Peptide 1073 pg/mL (<100)
--- NOTE | 2024-02-22 11:27 | PM.PNCARD ---
Subjective Subjective Date of Service: 02/22/24 Principal diagnosis: Atrial fibrillation, CHF Interval history: Patient with rapid heart rate overnight. Rate is better controlled this morning. No significant shortness of breath was given Lasix yesterday because shortness of breath. Negative balance of 15 and 50. Appears to be very comfortable today. Repeat echocardiogram was performed, has not been reviewed Review of Systems Constitutional: Reports no additional constitutional complaints Cardiovascular: Reports rapid heart rate and Reports dyspnea on exertion Respiratory: Reports dyspnea on exertion Musculoskeletal: Reports no additional musculoskeletal complaints Reports system reviewed and no additional complaints, except as documented Physical Exam Vital Signs: Last Vital Signs Temp 97.3 F 02/22/24 11:11 Pulse 99 02/22/24 11:11 Resp 19 02/22/24 11:11 BP 113/89 02/22/24 11:11 Pulse Ox 94 02/22/24 11:11 O2 Del Method Room Air 02/22/24 11:11 BMI result Body Mass Index 33.5 Const General: cooperative, comfortable, no acute distress, alert and awake Nutritional Appearance: obese Orientation/consciousness: patient oriented x3 Neck Neck: Yes trachea midline, Yes supple and Yes no JVD Resp Effort & Inspection: decreased respiratory effort Auscultation: clear to auscultation bilaterally Cardio Jugular venous distension: no JVD Rate: tachycardic Rhythm: abnormal rhythm irregularly irregular Heart sounds: S1 normal heart sound present, S2 normal heart sound present, no click, no gallops and Murmur heart sound present systolic holo GI Auscultation: normal bowel sounds Skin General skin exam: no rashes or lesions noted Neuro General: patient oriented x3 and no focal motor deficits Extrem General: Yes no clubbing, cyanosis or edema Objective Labs and Meds 02/22/24 09:49 02/22/24 09:49 Lab results: Laboratory Results - last 24 hr 02/21/24 02/22/24 14:37 09:49 WBC 14.1 H RBC 3.72 L Hgb 10.6 L Hct 32.7 L MCV 87.9 MCH 28.5 MCHC 32.4 RDW 18.6 H Plt Count 481 H MPV 8.3 L Absolute Nucleated RBC 0.360 H Nucleated RBC % (auto) 2.6 H Sodium 137 Potassium 3.8 Chloride 96 Carbon Dioxide 27 Anion Gap 18 BUN 28 H Creatinine 1.14 Estim Creat Clear Calc 72.0 Estimated GFR > 60 Random Glucose 95 Calcium 10.1 D B-Natriuretic Peptide 1658 H 1073 H Imaging Radiologist's impression: Impressions Chest X-Ray 02/21/24 14:10 IMPRESSION: Small-moderate left pleural effusion. Small right pleural effusion. Opacification the left lower lung/retrocardiac region, from atelectasis versus inflammatory/infectious process. Electronically signed by: Isac Douglas MD 02/21/2024 06:50 PM [facility] [place] Progress Note: A&P Assessment and plan (1) Atrial fibrillation with rapid ventricular response: Status: Acute Assessment and Plan: Patient with rapid atrial fibrillation due to 100 medication. I would give him couple of doses of digoxin 0.25 mg IV push today and switch him to 0.25 mg daily. Also increase metoprolol to 25 mg b.i.d.. Continue monitor heart rate on telemetry. Gradually uptitrate metoprolol as tolerated. Continue full oral anticoagulation. (2) Acute heart failure: Status: Acute Assessment and Plan: Acute heart failure again probably due to under diuresis. Clinically appears to be much improved after IV diuresis. Can switch to p.o. torsemide. Overall prognosis guarded. He has significant biatrial enlargement with secondary significant tricuspid regurgitation causing his heart failure syndrome. Discussed with him this is probably related to his chronic atrial fibrillation. 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 Continue diuresis for 1 more day. Strict intake and output chart needs to be pursued. Follow-up BMP and BNP to monitor replace electrolytes as needed. Will follow with you Time Spent With Patient Time: Total time managing care of this patient today ____ minutes. Progress Note: Quality Stroke Does the patient have a stroke diagnosis?: No Procedures Date of Service Date of Service: 02/22/24
[2024-02-22] MEDS: Digoxin 0.5 MG/2 ML AMPUL 0.25 MG IVPUSH ×2 (12:01→18:32)
--- NOTE | 2024-02-22 12:55 | P.PNIM_ITS ---
Subjective Subjective Date of Service: 02/22/24 Interval History: Seen and examined this morning Follow-up for CHF Shortness of breath improving compared to yesterday still with dyspnea on exertion No significant cough No chest pain or palpitations Review of Systems Review of Systems: Yes all other systems are reviewed and are negative Constitutional Constitutional: Denies chills and Denies fever(s) Cardiovascular Cardiovascular: Denies chest pain and Denies palpitations Gastrointestinal Gastrointestinal: Denies nausea and Denies vomiting Endocrine Endocrine: Denies palpitations Physical Exam 2 Vital Signs: Vital Signs: Last Vital Signs Temp 97.3 F 02/22/24 11:11 Pulse 99 02/22/24 11:11 Resp 19 02/22/24 11:11 BP 113/89 02/22/24 11:11 Pulse Ox 94 02/22/24 11:11 O2 Del Method Room Air 02/22/24 11:11 BMI result Body Mass Index 33.5 Const: General: cooperative, comfortable, no acute distress, alert and awake Nutritional Appearance: average body habitus Orientation/consciousness: p atient oriented x3 Resp: Effort & Inspection: normal respiratory effort, able to speak in complete sentences, no respiratory distress and no use of accessory muscles A uscultation: clear to auscultation bilaterally Cardio: Rate: tachycardic GI: Inspection: No distended Palpation (GI): Soft to palpation and nontender Neuro: General: patient oriented x3, moves all extremities and CN's II-XI intact bilaterally Extrem: General: Yes no pedal edema Objective Data Active Medications Acetaminophen (Acetaminophen 325 Mg Tablet) 650 mg PO Q6H PRN PRN Reason: Pain, Mild (Pain Scale 1-3), fever or headache Albuterol Sulfate (Albuterol Sulfate 90 Mcg 8 Gm Inhaler) 2 puff INHALE Q4H PRN PRN Reason: Shortness Of Breath Or Wheezin Last Admin: 02/21/24 21:19 Dose: 2 puff Documented By: VINICIUS Albuterol/Ipratropium (Albuterol/Iprat 2.5/0.5mg 3 Ml Ampul.Neb) 3 ml INHALE RQ4H [facility] Last Admin: 02/22/24 11:55 Dose: Not Given Documented By: BHUPINDER Non-Admin Reason: Patient Refused Apixaban (Apixaban 5 Mg Tablet) 5 mg PO BID [facility] Last Admin: 02/22/24 07:59 Dose: 5 mg Documented By: KATHE Atorvastatin Calcium (Atorvastatin Calcium 80 Mg Tablet) 80 mg PO DAILY [facility] Last Admin: 02/22/24 07:59 Dose: 80 mg Documented By: KATHE Bupropion HCl (Bupropion Hcl Xl 300 Mg Tab.Er.24h) 300 mg PO DAILY [facility] Last Admin: 02/22/24 07:58 Dose: 300 mg Documented By: KATHE Calcium Carbonate (Calcium Carbonate 750 Mg Tab.Chew) 750 mg PO Q4H PRN PRN Reason: Heartburn Digoxin (Digoxin 0.125 Mg Tablet) 0.25 mg PO DAILY [facility]; Protocol Digoxin (Digoxin 0.5 Mg/2 Ml Ampul) 0.25 mg IVPUSH Q6H [facility]; Protocol Stop: 02/22/24 17:01 Last Admin: 02/22/24 12:01 Dose: 0.25 mg Documented By: KATHE Famotidine (Famotidine 20 Mg Tablet) 20 mg PO BID [facility] Last Admin: 02/22/24 07:59 Dose: 20 mg Documented By: KATHE Finasteride (Finasteride 5 Mg Tablet) 5 mg PO DAILY [facility] Last Admin: 02/22/24 08:00 Dose: 5 mg Documented By: KATHE Fluticasone/Umeclidinium/Vilanterol (Fluticasone/Umeclidinium/Vilanterol 100/62.5/25 Blst.W.Dev) 1 puff INHALE RDAILY [facility] Last Admin: 02/22/24 07:57 Dose: Not Given Documented By: BHUPINDER Non-Admin Reason: Nausea Furosemide (Furosemide 20 Mg/2 Ml Vial) 40 mg IVPUSH BID@0900,1800 [facility]; Protocol Last Admin: 02/22/24 08:00 Dose: 40 mg Documented By: KATHE Magnesium Hydroxide (Milk Of Magnesia 30 Ml Oral.Susp) 30 ml PO DAILY PRN PRN Reason: Constipation Melatonin (Melatonin 3 Mg Tablet) 6 mg PO BEDTIME PRN PRN Reason: Insomnia Metoprolol Succinate (Metoprolol Succinate Er 25 Mg Tab.Er.24h) 25 mg PO BID [facility]; Protocol Midodrine (Midodrine Hcl 2.5 Mg Tablet) 2.5 mg PO TIDWM [facility] Last Admin: 02/22/24 12:01 Dose: 2.5 mg Documented By: KATHE Omeprazole (Omeprazole 20 Mg Capsule.) 20 mg PO BID@0630,1630 [facility] Last Admin: 02/22/24 05:47 Dose: 20 mg Documented By: VINICIUS Ondansetron HCl (Ondansetron Hcl 4 Mg/2 Ml Vial) 4 mg IVPUSH Q8H PRN PRN Reason: Nausea and Vomiting Last Admin: 02/22/24 08:06 Dose: 4 mg Documented By: KATHE Oxycodone HCl (Oxycodone Hcl Immed Release 5 Mg Tablet) 5 mg PO Q6H PRN PRN Reason: Pain (Scale Score 4-6) Prednisone (Prednisone 20 Mg Tablet) 20 mg PO DAILY [facility] Last Admin: 02/22/24 07:59 Dose: 20 mg Documented By: KATHE Sodium Chloride (0.9 % Sodium Chloride Flush 3 Ml Syringe) 3 ml IVFLUSH QSHIFT [facility] Last Admin: 02/22/24 08:00 Dose: 3 ml Documented By: KATHE Tiotropium Holcomb (Tiotropium Holcomb 2.5 Mcg 1 Puff/2.5 Mcg Mist.Inhal) 1 puff INHALE RDAILY [facility] Last Admin: 02/18/24 10:35 Dose: Not Given Documented By: VANNA Non-Admin Reason: Duplicate Order Torsemide (Torsemide 20 Mg Tablet) 20 mg PO DAILY PRN; Protocol PRN Reason: Weight Gain Labs 02/22/24 09:49 02/22/24 09:49 Labs: Laboratory Results - last 24 hr 02/21/24 02/22/24 14:37 09:49 MCV 87.9 MCH 28.5 MCHC 32.4 RDW 18.6 H Plt Count 481 H MPV 8.3 L Absolute Nucleated RBC 0.360 H Nucleated RBC % (auto) 2.6 H Anion Gap 18 Estim Creat Clear Calc 72.0 Estimated GFR > 60 Random Glucose 95 Calcium 10.1 D B-Natriuretic Peptide 1658 H 1073 H Assessment and Plan (1) Atrial fibrillation with rapid ventricular response: Status: Acute Plan 68 y/o male ex smoker (60 pack year hx),COPD CHF AFib on Eliquis that came in with dyspnea Heart failure exacerbation with preserved ejection fraction/right heart failure Likely in the setting of afib RVR Initially diuresed with IV Lasix 20 mg daily, increasing shortness a breath, repeat BNP significantly elevated dose of Lasix increased to 40 b.i.d. echo - EF 60-65% with mild LVH, biatrial enlargement, moderately dilated right ventricle with moderate to severe RV systolic dysfunction, moderate to severe tricuspid regurgitation, small loculated pericardial effusion Monitor renal function Cardiology following Atrial fibrillation with rapid ventricular response We will increase dose of digoxin and metoprolol IV digoxin x2 doses Continue oral anticoagulation with Eliquis Cardiology following Mild COPD exacerbation Continue albuterol Completed 5 days of oral prednisone repeat CXR with likely atelectasis-incentive spirometry Possible orthostatic hypotension:improving tiburcio stocking,adjusted midodrine History of aortic aneurysm measuring 5.0 As per [facility] records, outpatient vascular follow-up DVT prophylaxis with Eliquis Full code Attending Dr. German Quality Stroke Does the patient have a stroke diagnosis?: No VTE Prior VTE?: No VTE Risk Level:: Medical - moderate - high VTE Device Contraindication: N/A - Device Ordered VTE Drug Contraindication: N/A - Med Ordered
[2024-02-22] MEDS: Albuterol/Iprat 2.5/0.5MG 3 ML AMPUL.NEB INHALE ×2 (15:51→19:03)
[2024-02-23] VITALS (13 sets, daily range): BP systolic 90–118; BP diastolic 50–89; PULSE 58–87; RESP 16–18; TEMP 36–36.5; O2SAT 92–97; BMI 31.1; BMI 30.5
[2024-02-23] MEDS: Omeprazole 20 MG CAPSULE.DR PO ×2 (05:49→16:36)
[2024-02-23 07:42] LABS: Anion Gap 18 (12-20); Blood Urea Nitrogen 40 mg/dL (9-16); Calcium 9.4 mg/dL (8.4-10.2); Carbon Dioxide 28 mmol/L (22-29); Chloride 96 mmol/L (96-108); Creatinine Clr Calc Pharmacy 55.7; Estimated Glomerular Filt Rate 50; Glucose Random 87 mg/dL (60-115); Potassium 4.2 mmol/L (3.3-5.1); Sodium 138 mmol/L (135-145)
[2024-02-23 07:48] LABS: B Type Natriuretic Peptide 589 pg/mL (<100)
[2024-02-23] MEDS: Fluticasone/Umeclidinium/Vilanterol 100/62.5/25 BLST.W.DEV 1 PUFF INHALE (08:13)
[2024-02-23] MEDS: Albuterol/Iprat 2.5/0.5MG 3 ML AMPUL.NEB INHALE ×4 (08:15→19:06)
[2024-02-23] MEDS: buPROPion HCl XL 300 MG TAB.ER.24H PO (08:25)
[2024-02-23] MEDS: Finasteride 5 MG TABLET PO (08:26)
[2024-02-23] MEDS: Atorvastatin Calcium 80 MG TABLET PO (08:26)
[2024-02-23] MEDS: Apixaban 5 MG TABLET PO ×2 (08:26→22:48)
[2024-02-23] MEDS: 0.9 % Sodium Chloride Flush 3 ML SYRINGE IVFLUSH ×3 (08:26→22:48)
[2024-02-23] MEDS: Famotidine 20 MG TABLET PO ×2 (08:26→22:48)
[2024-02-23] MEDS: Midodrine HCl 2.5 MG TABLET PO ×3 (08:27→16:36)
[2024-02-23] MEDS: Metoprolol Succinate ER 25 MG TAB.ER.24H PO (08:27)
[2024-02-23] MEDS: Digoxin 0.125 MG TABLET 0.25 MG PO (08:27)
--- NOTE | 2024-02-23 10:13 | PM.PNCARD ---
Subjective Subjective Date of Service: 02/23/24 Principal diagnosis: Atrial fibrillation, CHF Interval history: Heart rate is adequately controlled. No shortness of breath. Creatinine rising most likely due to over-diuresis. No other cardiac symptoms Review of Systems Review of Systems Yes all other systems are reviewed and are negative Physical Exam Vital Signs: Last Vital Signs Temp 97.5 F 02/23/24 07:20 Pulse 71 02/23/24 08:27 Resp 18 02/23/24 08:15 BP 104/75 02/23/24 08:27 Pulse Ox 97 02/23/24 07:20 O2 Del Method Room Air 02/23/24 07:20 BMI result Body Mass Index 30.5 Const General: cooperative, comfortable, no acute distress, alert and awake Nutritional Appearance: obese Orientation/consciousness: patient oriented x3 Neck Neck: Yes trachea midline, Yes supple and Yes no JVD Resp Effort & Inspection: decreased respiratory effort Auscultation: clear to auscultation bilaterally Cardio Jugular venous distension: no JVD Rate: tachycardic Rhythm: abnormal rhythm irregularly irregular Heart sounds: S1 normal heart sound present, S2 normal heart sound present, no click, no gallops and Murmur heart sound present systolic holo GI Auscultation: normal bowel sounds Skin General skin exam: no rashes or lesions noted Neuro General: patient oriented x3 and no focal motor deficits Extrem General: Yes no clubbing, cyanosis or edema Objective Labs and Meds 02/22/24 09:49 02/23/24 06:59 Lab results: Laboratory Results - last 24 hr 02/22/24 02/23/24 09:49 06:59 WBC 14.1 H RBC 3.72 L Hgb 10.6 L Hct 32.7 L MCV 87.9 MCH 28.5 MCHC 32.4 RDW 18.6 H Plt Count 481 H MPV 8.3 L Absolute Nucleated RBC 0.360 H Nucleated RBC % (auto) 2.6 H Sodium 137 138 Potassium 3.8 4.2 Chloride 96 96 Carbon Dioxide 27 28 Anion Gap 18 18 BUN 28 H 40 H Creatinine 1.14 1.41 H Estim Creat Clear Calc 72.0 55.7 Estimated GFR > 60 50 Random Glucose 95 87 Calcium 10.1 D 9.4 D B-Natriuretic Peptide 1073 H 589 H Progress Note: A&P Assessment and plan (1) Atrial fibrillation with rapid ventricular response: Status: Acute Assessment and Plan: Atrial fibrillation good rate control. Continue digoxin and metoprolol. Given significant biatrial enlargement unlikely that he will be able to achieve rhythm control. Will follow up with his own marketing graphics specialist. Continue full oral anticoagulation Eliquis. (2) Acute heart failure: Status: Acute Assessment and Plan: Heart failure related to chronic atrial fibrillation biatrial enlargement and moderate to severe tricuspid regurgitation diastolic dysfunction. Clinically slightly over diuresed. Hold off on IV diuresis. Can switch to p.o. Lasix as outpatient. Heart failure management discussed. Daily weight monitoring avoidance salt loading was discussed. Follow-up with his marketing graphics specialist as outpatient. Will sign of the case and follow as need be. Time Spent With Patient Time: Total time managing care of this patient today ____ minutes. Progress Note: Quality Stroke Does the patient have a stroke diagnosis?: No Procedures Date of Service Date of Service: 02/23/24
--- NOTE | 2024-02-23 12:31 | HO.PM.IMPN ---
Subjective Subjective Date of Service: 02/23/24 Interval History: seen and examined this morning follow up for CHF sob improving, having some dizziness Review of Systems Review of Systems: Yes all other systems are reviewed and are negative Constitutional Constitutional: Denies chills and Denies fever(s) Cardiovascular Cardiovascular: Denies chest pain, Denies palpitations and Denies dyspnea Respiratory Respiratory: Denies cough and Denies dyspnea Gastrointestinal Gastrointestinal: Denies abdominal pain, Denies nausea and Denies vomiting Endocrine Endocrine: Denies palpitations Physical Exam Vital Signs: Vital Signs: Last Vital Signs Temp 97.7 F 02/23/24 10:55 Pulse 63 02/23/24 11:37 Resp 18 02/23/24 11:37 BP 91/71 02/23/24 10:55 Pulse Ox 94 02/23/24 10:55 O2 Del Method Room Air 02/23/24 10:55 BMI result Body Mass Index 30.5 Const: General: cooperative, comfortable, no acute distress, alert and awake Nutritional Appearance: average body habitus Orientation/consciousness: patient oriented x3 Resp: Effort & Inspection: normal respiratory effort, able to speak in complete sentences, no respiratory distress and no use of accessory muscles Auscultation: clear to auscultation bilaterally Cardio: Rate: regular rate GI: Inspection: No distended Palpation (GI): Soft to palpation and nontender Neuro: General: patient oriented x3, moves all extremities and CN's II-XI intact bilaterally Extrem: General: Yes no pedal edema Objective Data Active Medications Acetaminophen (Acetaminophen 325 Mg Tablet) 650 mg PO Q6H PRN PRN Reason: Pain, Mild (Pain Scale 1-3), fever or headache Albuterol Sulfate (Albuterol Sulfate 90 Mcg 8 Gm Inhaler) 2 puff INHALE Q4H PRN PRN Reason: Shortness Of Breath Or Wheezin Last Admin: 02/21/24 21:19 Dose: 2 puff Documented By: VINICIUS Albuterol/Ipratropium (Albuterol/Iprat 2.5/0.5mg 3 Ml Ampul.Neb) 3 ml INHALE RQ4H [facility] Last Admin: 02/23/24 11:37 Dose: 3 ml Documented By: BHUPINDER Apixaban (Apixaban 5 Mg Tablet) 5 mg PO BID [facility] Last Admin: 02/23/24 08:26 Dose: 5 mg Documented By: LEAH Atorvastatin Calcium (Atorvastatin Calcium 80 Mg Tablet) 80 mg PO DAILY [facility] Last Admin: 02/23/24 08:26 Dose: 80 mg Documented By: LEAH Bupropion HCl (Bupropion Hcl Xl 300 Mg Tab.Er.24h) 300 mg PO DAILY [facility] Last Admin: 02/23/24 08:25 Dose: 300 mg Documented By: LEAH Calcium Carbonate (Calcium Carbonate 750 Mg Tab.Chew) 750 mg PO Q4H PRN PRN Reason: Heartburn Digoxin (Digoxin 0.125 Mg Tablet) 0.25 mg PO DAILY [facility]; Protocol Last Admin: 02/23/24 08:27 Dose: 0.25 mg Documented By: LEAH Famotidine (Famotidine 20 Mg Tablet) 20 mg PO BID [facility] Last Admin: 02/23/24 08:26 Dose: 20 mg Documented By: LEAH Finasteride (Finasteride 5 Mg Tablet) 5 mg PO DAILY [facility] Last Admin: 02/23/24 08:26 Dose: 5 mg Documented By: LEAH Fluticasone/Umeclidinium/Vilanterol (Fluticasone/Umeclidinium/Vilanterol 100/62.5/25 Blst.W.Dev) 1 puff INHALE RDAILY [facility] Last Admin: 02/23/24 08:13 Dose: 1 puff Documented By: BHUPINDER Magnesium Hydroxide (Milk Of Magnesia 30 Ml Oral.Susp) 30 ml PO DAILY PRN PRN Reason: Constipation Melatonin (Melatonin 3 Mg Tablet) 6 mg PO BEDTIME PRN PRN Reason: Insomnia Metoprolol Succinate (Metoprolol Succinate Er 25 Mg Tab.Er.24h) 25 mg PO BID [facility]; Protocol Last Admin: 02/23/24 08:27 Dose: 25 mg Documented By: LEAH Midodrine (Midodrine Hcl 2.5 Mg Tablet) 2.5 mg PO TIDWM [facility] Last Admin: 02/23/24 08:27 Dose: 2.5 mg Documented By: LEAH Omeprazole (Omeprazole 20 Mg Capsule.Dr) 20 mg PO BID@0630,1630 [facility] Last Admin: 02/23/24 05:49 Dose: 20 mg Documented By: QUIQUE Ondansetron HCl (Ondansetron Hcl 4 Mg/2 Ml Vial) 4 mg IVPUSH Q8H PRN PRN Reason: Nausea and Vomiting Last Admin: 02/22/24 08:06 Dose: 4 mg Documented By: KATHE Oxycodone HCl (Oxycodone Hcl Immed Release 5 Mg Tablet) 5 mg PO Q6H PRN PRN Reason: Pain (Scale Score 4-6) Sodium Chloride (0.9 % Sodium Chloride Flush 3 Ml Syringe) 3 ml IVFLUSH QSHIFT [facility] Last Admin: 02/23/24 08:26 Dose: 3 ml Documented By: LEAH Tiotropium [place] (Tiotropium [place] 2.5 Mcg 1 Puff/2.5 Mcg Mist.Inhal) 1 puff INHALE RDAILY [facility] Last Admin: 02/18/24 10:35 Dose: Not Given Documented By: VANNA Non-Admin Reason: Duplicate Order Labs 02/22/24 09:49 02/23/24 06:59 Labs: Laboratory Results - last 24 hr 02/23/24 06:59 Anion Gap 18 Estim Creat Clear Calc 55.7 Estimated GFR 50 Random Glucose 87 Calcium 9.4 D B-Natriuretic Peptide 589 H Assessment and Plan (1) (HFpEF) heart failure with preserved ejection fraction: Status: Acute Plan 68 y/o male ex smoker (60 pack year hx),COPD CHF AFib on Eliquis that came in with dyspnea Heart failure exacerbation with preserved ejection fraction/right heart failure Likely in the setting of afib RVR with underlying biatrial enlargement and mod-severe tricuspid regurgitation BNP trending down, stop IV lasix - likely transition to po lasix in am echo - EF 60-65% with mild LVH, biatrial enlargement, moderately dilated right ventricle with moderate to severe RV systolic dysfunction, moderate to severe tricuspid regurgitation, small loculated pericardial effusion Monitor renal function Cardiology following YASMINE due to lasix hold lasix follow renal function Atrial fibrillation with rapid ventricular response increased dose of digoxin and metoprolol Continue oral anticoagulation with Eliquis Cardiology following Mild COPD exacerbation Continue albuterol Completed 5 days of oral prednisone repeat CXR with likely atelectasis-incentive spirometry Possible orthostatic hypotension:improving tiburcio stocking continue midodrine History of aortic aneurysm measuring 5.0 As per [facility] records, outpatient vascular follow-up PT rec STR - pt unable to pay daily co-pay, plan for VNA on discharge DVT prophylaxis with Bryan Full code Attending Dr. German Quality Stroke Does the patient have a stroke diagnosis?: No VTE Prior VTE?: No VTE Risk Level:: Medical - moderate - high VTE Device Contraindication: N/A - Device Ordered VTE Drug Contraindication: N/A - Med Ordered
--- NOTE | 2024-02-23 14:41 | MHC.CM.PN ---
Per rounds, pt is not ready to DC, anticipate DC 02/24/24. Follow up PT rec was STR, CM discussed this with pt and he called his ins. and they said he will have a co pay of $150 per day. So, pt will go home with CD VNA.
--- NOTE | 2024-02-23 17:48 | PC.NURSE ---
At approx. 1700, this RN and SPRAY BOOTH OPERATOR attempted to obtain orthostatic vital signs. Supine reading of BP 86/63 HR 77, pt asymptomatic. Pt then positioned sitting on edge of bed. Within a few seconds, pt reported feeling lightheaded with tele monitor reading HR 160s, pt began tipping backward in a syncopal episode; pt guided into laying position on bed by RN and SPRAY BOOTH OPERATOR. Pt immediately regained consciousness, answering questions appropriately. Vitals obtained with BP 110/77, HR 70. Priyanka ROBERSON notified with orders to hold orthostatic vitals and encourage PO fluid intake. No other concerns at this time.
[2024-02-24] VITALS (7 sets, daily range): BP systolic 100–136; BP diastolic 68–89; PULSE 72–99; RESP 16–20; TEMP 36.1–36.8; O2SAT 94–100; BMI 30.9
[2024-02-24] MEDS: Omeprazole 20 MG CAPSULE.DR PO ×2 (05:43→17:48)
--- NOTE | 2024-02-24 06:45 | PC.NURSE ---
Addendum entered by Ryley Huang RN 02/24/24 06:53: 429 mL bladder scanned prior to straight cath attempt Original Note: pt reporting dysuria, hesitancy. able to put out about 100mL of concentrated urine to urinal. straight cath attempt failed d/t meeting obstruction. pt call dyer in reach, plan of care ongoing
[2024-02-24 07:21] LABS: Anion Gap 19 (12-20); Blood Urea Nitrogen 45 mg/dL (9-16); Calcium 9.5 mg/dL (8.4-10.2); Carbon Dioxide 30 mmol/L (22-29); Chloride 94 mmol/L (96-108); Estimated Glomerular Filt Rate 44; Glucose Random 88 mg/dL (60-115); Potassium 3.9 mmol/L (3.3-5.1); Sodium 139 mmol/L (135-145)
--- NOTE | 2024-02-24 09:27 | P.PNCA_ITS ---
Subjective Subjective Date of Service: 02/24/24 Principal diagnosis: Atrial fibrillation, CHF Interval history: Patient yesterday had near syncopal episode with low blood pressure. Since then his blood pressure is stabilized. Creatinine is further elevated. No shortness of breath. Heart rate remains controlled. Review of Systems Constitutional: Reports no additional constitutional complaints Cardiovascular: Denies chest pain, Denies rapid heart rate, Reports lightheadedness, Reports Loss of Consciousness, Denies palpitations and Denies dyspnea Respiratory: Denies dyspnea Endocrine: Denies palpitations Physical Exam Vital Signs: Last Vital Signs Temp 97.6 F 02/24/24 08:00 Pulse 87 02/24/24 08:00 Resp 16 02/24/24 08:00 BP 136/89 02/24/24 08:00 Pulse Ox 96 02/24/24 08:00 O2 Del Method Room Air 02/24/24 08:00 BMI result Body Mass Index 30.9 Const General: cooperative, comfortable, no acute distress, alert and awake Nutritional Appearance: obese Orientation/consciousness: patient oriented x3 Neck Neck: Yes trachea midline, Yes supple and Yes no JVD Resp Effort & Inspection: decreased respiratory effort Auscultation: clear to auscultation bilaterally Cardio Jugular venous distension: no JVD Rate: tachycardic Rhythm: abnormal rhythm irregularly irregular Heart sounds: S1 normal heart sound present, S2 normal heart sound present, no click, no gallops and Murmur heart sound present systolic holo GI Auscultation: normal bowel sounds Skin General skin exam: no rashes or lesions noted Neuro General: patient oriented x3 and no focal motor deficits Extrem General: Yes no clubbing, cyanosis or edema Objective Labs and Meds 02/22/24 09:49 02/24/24 06:44 Lab results: Laboratory Results - last 24 hr 02/24/24 06:44 Hold Purple Top SEE NOTE Sodium 139 Potassium 3.9 Chloride 94 L Carbon Dioxide 30 H Anion Gap 19 BUN 45 H Creatinine 1.58 H Estim Creat Clear Calc 50.0 Estimated GFR 44 Random Glucose 88 Calcium 9.5 Progress Note: A&P Assessment and plan (1) Acute heart failure: Status: Acute Assessment and Plan: Acute heart failure on admission which has now well treated and Mibi over- diuresis with rising creatinine. I would hold his Lasix today. Give him a L of fluid over the next 24 hours. His low blood pressures most likely due to over diuresis at this point time. Rising creatinine again suggestive of the same. Continue rate control approach. Trend BMP and BNP. (2) Atrial fibrillation: Status: Acute Assessment and Plan: Atrial fibrillation controlled ventricular response. Continue metoprolol and digoxin. Could not tolerate medications in the past due to low blood pressure. Continue midodrine therapy. Continue full oral anticoagulation with Eliquis. Will follow with you Time Spent With Patient Time: Total time managing care of this patient today ____ minutes. Progress Note: Quality Stroke Does the patient have a stroke diagnosis?: No Procedures Date of Service Date of Service: 02/24/24
[2024-02-24] MEDS: Digoxin 0.125 MG TABLET 0.25 MG PO (09:34)
[2024-02-24] MEDS: buPROPion HCl XL 300 MG TAB.ER.24H PO (09:34)
[2024-02-24] MEDS: Apixaban 5 MG TABLET PO ×2 (09:34→20:24)
[2024-02-24] MEDS: Famotidine 20 MG TABLET PO ×2 (09:35→20:24)
[2024-02-24] MEDS: Finasteride 5 MG TABLET PO (09:35)
[2024-02-24] MEDS: Midodrine HCl 2.5 MG TABLET PO ×3 (09:35→17:48)
[2024-02-24] MEDS: Atorvastatin Calcium 80 MG TABLET PO (09:35)
[2024-02-24] MEDS: 0.9 % Sodium Chloride Flush 3 ML SYRINGE IVFLUSH ×3 (09:46→20:24)
[2024-02-24] MEDS: Albuterol/Iprat 2.5/0.5MG 3 ML AMPUL.NEB INHALE ×2 (11:16→15:31)
--- NOTE | 2024-02-24 11:49 | PC.NURSE ---
indwelling coude (16fr) inserted at 1030 due to patient retaining urine with two failed straight cath attempts. Upon insertion, 400mLs concentrated yellow urine drained. Pt tolerated well.
[2024-02-24] MEDS: 0.9 % Sodium Chloride 1,000 ML 50 ML IVCONT (12:49)
--- NOTE | 2024-02-24 14:49 | HO.PM.IMPN ---
Subjective Subjective Date of Service: 02/24/24 Interval History: seen and examined this morning follow up for CHF sob improving, having some dizziness Review of Systems Review of Systems: Yes all other systems are reviewed and are negative Constitutional Constitutional: Denies chills and Denies fever(s) Cardiovascular Cardiovascular: Denies chest pain, Denies palpitations and Denies dyspnea Respiratory Respiratory: Denies cough and Denies dyspnea Gastrointestinal Gastrointestinal: Denies abdominal pain, Denies nausea and Denies vomiting Endocrine Endocrine: Denies palpitations Physical Exam Vital Signs: Vital Signs: Last Vital Signs Temp 97.0 F 02/24/24 11:24 Pulse 99 02/24/24 11:24 Resp 20 02/24/24 11:24 BP 111/68 02/24/24 11:24 Pulse Ox 100 02/24/24 11:24 O2 Del Method Room Air 02/24/24 11:24 BMI result Body Mass Index 30.9 Appearing in no acute distress lung sounds are clear to auscultation heart regular rate rhythm, clear S1, S2 positive bowel sounds, abdomen is soft, nontender neuro patient is alert x3, no focal deficits Objective Data Active Medications Acetaminophen (Acetaminophen 325 Mg Tablet) 650 mg PO Q6H PRN PRN Reason: Pain, Mild (Pain Scale 1-3), fever or headache Albuterol Sulfate (Albuterol Sulfate 90 Mcg 8 Gm Inhaler) 2 puff INHALE Q4H PRN PRN Reason: Shortness Of Breath Or Wheezin Last Admin: 02/21/24 21:19 Dose: 2 puff Documented By: VINICIUS Albuterol/Ipratropium (Albuterol/Iprat 2.5/0.5mg 3 Ml Ampul.Neb) 3 ml INHALE RQ4H [facility] Last Admin: 02/24/24 11:16 Dose: 3 ml Documented By: HOSSEIN Apixaban (Apixaban 5 Mg Tablet) 5 mg PO BID [facility] Last Admin: 02/24/24 09:34 Dose: 5 mg Documented By: J CARLOS Atorvastatin Calcium (Atorvastatin Calcium 80 Mg Tablet) 80 mg PO DAILY [facility] Last Admin: 02/24/24 09:35 Dose: 80 mg Documented By: J CARLOS Bupropion HCl (Bupropion Hcl Xl 300 Mg Tab.Er.24h) 300 mg PO DAILY [facility] Last Admin: 02/24/24 09:34 Dose: 300 mg Documented By: J CARLOS Calcium Carbonate (Calcium Carbonate 750 Mg Tab.Chew) 750 mg PO Q4H PRN PRN Reason: Heartburn Digoxin (Digoxin 0.125 Mg Tablet) 0.25 mg PO DAILY [facility]; Protocol Last Admin: 02/24/24 09:34 Dose: 0.25 mg Documented By: J CARLOS Famotidine (Famotidine 20 Mg Tablet) 20 mg PO BID [facility] Last Admin: 02/24/24 09:35 Dose: 20 mg Documented By: J CARLOS Finasteride (Finasteride 5 Mg Tablet) 5 mg PO DAILY [facility] Last Admin: 02/24/24 09:35 Dose: 5 mg Documented By: J CARLOS Fluticasone/Umeclidinium/Vilanterol (Fluticasone/Umeclidinium/Vilanterol 100/62.5/25 Blst.W.Dev) 1 puff INHALE RDAILY [facility] Last Admin: 02/24/24 07:36 Dose: Not Given Documented By: HOSSEIN Non-Admin Reason: Patient Refused Sodium Chloride (Ns) 1,000 mls @ 50 mls/hr IVCONT .Q20H [facility] Last Admin: 02/24/24 12:49 Dose: 50 mls/hr Documented By: J CARLOS Magnesium Hydroxide (Milk Of Magnesia 30 Ml Oral.Susp) 30 ml PO DAILY PRN PRN Reason: Constipation Melatonin (Melatonin 3 Mg Tablet) 6 mg PO BEDTIME PRN PRN Reason: Insomnia Metoprolol Succinate (Metoprolol Succinate Er 25 Mg Tab.Er.24h) 25 mg PO BID [facility]; Protocol Last Admin: 02/24/24 09:59 Dose: Not Given Documented By: J CARLOS Non-Admin Reason: hr 60 Midodrine (Midodrine Hcl 2.5 Mg Tablet) 2.5 mg PO TIDWM [facility] Last Admin: 02/24/24 12:49 Dose: 2.5 mg Documented By: J CARLOS Omeprazole (Omeprazole 20 Mg Capsule.Dr) 20 mg PO BID@0630,1630 [facility] Last Admin: 02/24/24 05:43 Dose: 20 mg Documented By: ИРИНА Ondansetron HCl (Ondansetron Hcl 4 Mg/2 Ml Vial) 4 mg IVPUSH Q8H PRN PRN Reason: Nausea and Vomiting Last Admin: 02/22/24 08:06 Dose: 4 mg Documented By: KATHE Oxycodone HCl (Oxycodone Hcl Immed Release 5 Mg Tablet) 5 mg PO Q6H PRN PRN Reason: Pain (Scale Score 4-6) Sodium Chloride (0.9 % Sodium Chloride Flush 3 Ml Syringe) 3 ml IVFLUSH QSHIFT [facility] Last Admin: 02/24/24 09:46 Dose: 3 ml Documented By: EDILIATEKSidney Tiotropium [place] (Tiotropium [place] 2.5 Mcg 1 Puff/2.5 Mcg Mist.Inhal) 1 puff INHALE RDAILY [facility] Last Admin: 02/18/24 10:35 Dose: Not Given Documented By: VANNA Non-Admin Reason: Duplicate Order Labs 02/22/24 09:49 02/24/24 06:44 Labs: Laboratory Results - last 24 hr 02/24/24 06:44 Hold Purple Top SEE NOTE Anion Gap 19 Estim Creat Clear Calc 50.0 Estimated GFR 44 Random Glucose 88 Calcium 9.5 Microbiology Microbiology Results: Microbiology 02/18/24 05:21 Blood Culture - Final Blood - Venous No growth after 5 days. 02/18/24 05:21 Blood Culture - Final Blood - Venous No growth after 5 days. Assessment and Plan (1) (HFpEF) heart failure with preserved ejection fraction: Status: Acute Plan 68 y/o male ex smoker (60 pack year hx),COPD CHF AFib on Eliquis that came in with dyspnea Heart failure exacerbation with preserved ejection fraction/right heart failure Likely in the setting of afib RVR with underlying biatrial enlargement and mod-severe tricuspid regurgitation BNP trending down, stop IV lasix - likely transition to po lasix in am echo - EF 60-65% with mild LVH, biatrial enlargement, moderately dilated right ventricle with moderate to severe RV systolic dysfunction, moderate to severe tricuspid regurgitation, small loculated pericardial effusion Monitor renal function Cardiology following YASMINE due to lasix hold lasix NS @ 50 follow renal function Atrial fibrillation with rapid ventricular response increased dose of digoxin and metoprolol Continue oral anticoagulation with Eliquis Cardiology following Mild COPD exacerbation Continue albuterol Completed 5 days of oral prednisone repeat CXR with likely atelectasis-incentive spirometry Possible orthostatic hypotension:improving tiburcio stocking continue midodrine History of aortic aneurysm measuring 5.0 As per [facility] records, outpatient vascular follow-up PT rec STR - pt unable to pay daily co-pay, plan for VNA on discharge DVT prophylaxis with Bryan Full code Attending Dr. Gilliam Quality Stroke Does the patient have a stroke diagnosis?: No VTE Prior VTE?: No VTE Risk Level:: Medical - moderate - high VTE Device Contraindication: N/A - Device Ordered VTE Drug Contraindication: N/A - Med Ordered
[2024-02-24] MEDS: Metoprolol Succinate ER 25 MG TAB.ER.24H PO (20:32)
[2024-02-25] VITALS (11 sets, daily range): BP systolic 97–120; BP diastolic 55–76; PULSE 47–94; RESP 16–20; TEMP 36.2–36.9; O2SAT 92–100; BMI 31.4
[2024-02-25] MEDS: Omeprazole 20 MG CAPSULE.DR PO ×2 (04:58→17:26)
[2024-02-25 07:52] LABS: Anion Gap 16 (12-20); Blood Urea Nitrogen 35 mg/dL (9-16); Calcium 9.4 mg/dL (8.4-10.2); Carbon Dioxide 26 mmol/L (22-29); Chloride 101 mmol/L (96-108); Estimated Glomerular Filt Rate > 60; Glucose Random 82 mg/dL (60-115); Potassium 3.9 mmol/L (3.3-5.1); Sodium 139 mmol/L (135-145)
[2024-02-25] MEDS: Albuterol/Iprat 2.5/0.5MG 3 ML AMPUL.NEB INHALE ×2 (08:03→11:11)
[2024-02-25] MEDS: Fluticasone/Umeclidinium/Vilanterol 100/62.5/25 BLST.W.DEV 1 PUFF INHALE (08:04)
[2024-02-25] MEDS: Midodrine HCl 2.5 MG TABLET PO ×3 (08:20→17:26)
[2024-02-25] MEDS: Finasteride 5 MG TABLET PO (08:20)
[2024-02-25] MEDS: buPROPion HCl XL 300 MG TAB.ER.24H PO (08:20)
[2024-02-25] MEDS: Apixaban 5 MG TABLET PO ×2 (08:20→21:15)
[2024-02-25] MEDS: Atorvastatin Calcium 80 MG TABLET PO (08:20)
[2024-02-25] MEDS: Famotidine 20 MG TABLET PO ×2 (08:21→21:15)
[2024-02-25] MEDS: Digoxin 0.125 MG TABLET 0.25 MG PO (08:22)
--- NOTE | 2024-02-25 08:23 | HO.PM.IMPN ---
Subjective Subjective Date of Service: 02/25/24 Interval History: follow up for CHF No sob, oob to chair and ambulating Review of Systems Review of Systems: Yes all other systems are reviewed and are negative Constitutional Constitutional: Denies chills and Denies fever(s) Cardiovascular Cardiovascular: Denies chest pain, Denies palpitations and Denies dyspnea Respiratory Respiratory: Denies cough and Denies dyspnea Gastrointestinal Gastrointestinal: Denies abdominal pain, Denies nausea and Denies vomiting Endocrine Endocrine: Denies palpitations Physical Exam Vital Signs: Vital Signs: Last Vital Signs Temp 97.2 F 02/25/24 08:00 Pulse 66 02/25/24 08:23 Resp 18 02/25/24 08:05 BP 116/71 02/25/24 08:00 Pulse Ox 100 02/25/24 08:00 O2 Del Method Room Air 02/25/24 08:00 BMI result Body Mass Index 31.4 Appearing in no acute distress lung sounds are clear to auscultation heart regular rate rhythm, clear S1, S2 positive bowel sounds, abdomen is soft, nontender neuro patient is alert x3, no focal deficits Objective Data Active Medications Acetaminophen (Acetaminophen 325 Mg Tablet) 650 mg PO Q6H PRN PRN Reason: Pain, Mild (Pain Scale 1-3), fever or headache Albuterol Sulfate (Albuterol Sulfate 90 Mcg 8 Gm Inhaler) 2 puff INHALE Q4H PRN PRN Reason: Shortness Of Breath Or Wheezin Last Admin: 02/21/24 21:19 Dose: 2 puff Documented By: VINICIUS Albuterol/Ipratropium (Albuterol/Iprat 2.5/0.5mg 3 Ml Ampul.Neb) 3 ml INHALE RQ4H [facility] Last Admin: 02/25/24 08:03 Dose: 3 ml Documented By: HOSSEIN Apixaban (Apixaban 5 Mg Tablet) 5 mg PO BID [facility] Last Admin: 02/25/24 08:20 Dose: 5 mg Documented By: J CARLOS Atorvastatin Calcium (Atorvastatin Calcium 80 Mg Tablet) 80 mg PO DAILY [facility] Last Admin: 02/25/24 08:20 Dose: 80 mg Documented By: J CARLOS Bupropion HCl (Bupropion Hcl Xl 300 Mg Tab.Er.24h) 300 mg PO DAILY [facility] Last Admin: 02/25/24 08:20 Dose: 300 mg Documented By: J CARLOS Calcium Carbonate (Calcium Carbonate 750 Mg Tab.Chew) 750 mg PO Q4H PRN PRN Reason: Heartburn Digoxin (Digoxin 0.125 Mg Tablet) 0.25 mg PO DAILY [facility]; Protocol Last Admin: 02/25/24 08:22 Dose: 0.25 mg Documented By: J CARLOS Famotidine (Famotidine 20 Mg Tablet) 20 mg PO BID [facility] Last Admin: 02/25/24 08:21 Dose: 20 mg Documented By: J CARLOS Finasteride (Finasteride 5 Mg Tablet) 5 mg PO DAILY [facility] Last Admin: 02/25/24 08:20 Dose: 5 mg Documented By: J CARLOS Fluticasone/Umeclidinium/Vilanterol (Fluticasone/Umeclidinium/Vilanterol 100/62.5/25 Blst.W.Dev) 1 puff INHALE RDAILY [facility] Last Admin: 02/25/24 08:04 Dose: 1 puff Documented By: HOSSEIN Magnesium Hydroxide (Milk Of Magnesia 30 Ml Oral.Susp) 30 ml PO DAILY PRN PRN Reason: Constipation Melatonin (Melatonin 3 Mg Tablet) 6 mg PO BEDTIME PRN PRN Reason: Insomnia Metoprolol Succinate (Metoprolol Succinate Er 25 Mg Tab.Er.24h) 25 mg PO BID [facility]; Protocol Last Admin: 02/24/24 20:32 Dose: 25 mg Documented By: ИРИНА Midodrine (Midodrine Hcl 2.5 Mg Tablet) 2.5 mg PO TIDWM [facility] Last Admin: 02/25/24 08:20 Dose: 2.5 mg Documented By: J CARLOS Omeprazole (Omeprazole 20 Mg Capsule.Dr) 20 mg PO BID@0630,1630 [facility] Last Admin: 02/25/24 04:58 Dose: 20 mg Documented By: ИРИНА Ondansetron HCl (Ondansetron Hcl 4 Mg/2 Ml Vial) 4 mg IVPUSH Q8H PRN PRN Reason: Nausea and Vomiting Last Admin: 02/22/24 08:06 Dose: 4 mg Documented By: KATHE Oxycodone HCl (Oxycodone Hcl Immed Release 5 Mg Tablet) 5 mg PO Q6H PRN PRN Reason: Pain (Scale Score 4-6) Sodium Chloride (0.9 % Sodium Chloride Flush 3 Ml Syringe) 3 ml IVFLUSH QSHIFT [facility] Last Admin: 02/24/24 20:24 Dose: 3 ml Documented By: ИРИНА Tiotropium [place] (Tiotropium [place] 2.5 Mcg 1 Puff/2.5 Mcg Mist.Inhal) 1 puff INHALE RDAILY [facility] Last Admin: 02/18/24 10:35 Dose: Not Given Documented By: VANNA Non-Admin Reason: Duplicate Order Labs 02/22/24 09:49 02/25/24 06:57 Labs: Laboratory Results - last 24 hr 02/25/24 06:57 Hold Purple Top SEE NOTE Anion Gap 16 Estim Creat Clear Calc 71.0 Estimated GFR > 60 Random Glucose 82 Calcium 9.4 Assessment and Plan (1) (HFpEF) heart failure with preserved ejection fraction: Status: Acute Plan 68 y/o male ex smoker (60 pack year hx),COPD CHF AFib on Eliquis that came in with dyspnea Heart failure exacerbation with preserved ejection fraction/right heart failure Likely in the setting of afib RVR with underlying biatrial enlargement and mod-severe tricuspid regurgitation BNP trending down, stopped IV lasix - likely transition to po lasix echo - EF 60-65% with mild LVH, biatrial enlargement, moderately dilated right ventricle with moderate to severe RV systolic dysfunction, moderate to severe tricuspid regurgitation, small loculated pericardial effusion Monitor renal function Cardiology following YASMINE. Resolved due to lasix lasix stopped s/p NS @ 50 follow renal function Atrial fibrillation with rapid ventricular response increased dose of digoxin and metoprolol Continue oral anticoagulation with Eliquis Cardiology following Mild COPD exacerbation Continue albuterol Completed 5 days of oral prednisone repeat CXR with likely atelectasis-incentive spirometry Possible orthostatic hypotension. improving tiburcio stocking continue midodrine History of aortic aneurysm measuring 5.0 As per [facility] records, outpatient vascular follow-up PT rec STR - pt unable to pay daily co-pay, plan for VNA on discharge DVT prophylaxis with Eliquis Full code Attending Dr. Gilliam Quality Stroke Does the patient have a stroke diagnosis?: No VTE Prior VTE?: No VTE Risk Level:: Medical - moderate - high VTE Device Contraindication: N/A - Device Ordered VTE Drug Contraindication: N/A - Med Ordered
[2024-02-25] MEDS: Metoprolol Succinate ER 25 MG TAB.ER.24H PO (08:33)
--- NOTE | 2024-02-25 10:15 | PM.PNCARD ---
Subjective Subjective Date of Service: 02/25/24 Principal diagnosis: Atrial fibrillation, CHF Interval history: Blood pressures improved. Creatinine is back to normal. Heart rate remains controlled. No significant shortness of breath. Review of Systems Constitutional: Reports fatigue Cardiovascular: Reports no additional cardiovascular complaints Respiratory: Reports no additional respiratory complaints Reports system reviewed and no additional complaints, except as documented Endocrine: Reports fatigue Physical Exam Vital Signs: Last Vital Signs Temp 97.2 F 02/25/24 08:00 Pulse 66 02/25/24 08:23 Resp 18 02/25/24 08:05 BP 116/71 02/25/24 08:00 Pulse Ox 100 02/25/24 08:00 O2 Del Method Room Air 02/25/24 08:00 BMI result Body Mass Index 31.4 Const General: cooperative, comfortable, no acute distress, alert and awake Nutritional Appearance: obese Orientation/consciousness: patient oriented x3 Neck Neck: Yes trachea midline, Yes supple and Yes no JVD Resp Effort & Inspection: decreased respiratory effort Auscultation: clear to auscultation bilaterally Cardio Jugular venous distension: no JVD Rate: tachycardic Rhythm: abnormal rhythm irregularly irregular Heart sounds: S1 normal heart sound present, S2 normal heart sound present, no click, no gallops and Murmur heart sound present systolic holo GI Auscultation: normal bowel sounds Skin General skin exam: no rashes or lesions noted Neuro General: patient oriented x3 and no focal motor deficits Extrem General: Yes no clubbing, cyanosis or edema Objective Labs and Meds 02/22/24 09:49 02/25/24 06:57 Lab results: Laboratory Results - last 24 hr 02/25/24 06:57 Hold Purple Top SEE NOTE Sodium 139 Potassium 3.9 Chloride 101 Carbon Dioxide 26 Anion Gap 16 BUN 35 H Creatinine 1.12 Estim Creat Clear Calc 71.0 Estimated GFR > 60 Random Glucose 82 Calcium 9.4 Progress Note: A&P Assessment and plan (1) Acute heart failure: Status: Acute Assessment and Plan: Acute heart failure, with yesterday over-diuresis related to low blood pressure elevated creatinine which has all improved. Switch to p.o. Lasix 40 mg daily. Will need to be provided heart failure education. Daily weight monitoring avoidance salt loading was discussed to him. Continue rate control with atrial fibrillation. Follow-up with his international sales manager. Overall prognosis is guarded. (2) Atrial fibrillation with rapid ventricular response: Status: Acute Assessment and Plan: Atrial fibrillation rapid ventricular response better rate controlled at current point in time on digoxin and metoprolol therapy. Continue the same. Continue midodrine therapy for blood pressure support. Continue full oral anticoagulation Eliquis. Follow-up with his own international sales manager as outpatient. Will sign of the case. Thank you for allowing me to partake in his care Time Spent With Patient Time: Total time managing care of this patient today ____ minutes. Progress Note: Quality Stroke Does the patient have a stroke diagnosis?: No Procedures Date of Service Date of Service: 02/25/24
--- NOTE | 2024-02-25 10:45 | PC.NURSE ---
mercedes cath removed at 10:40. PT tolerated well. Pt due to void by 16:40
[2024-02-25] MEDS: 0.9 % Sodium Chloride Flush 3 ML SYRINGE IVFLUSH ×2 (17:26→21:15)
--- NOTE | 2024-02-25 17:57 | PC.NURSE ---
pt was due to void by 16:30 but did not. the patient stated that he does not have the urge to void. Patient bladder scanned for 385mL of urine. Patient refusing straight catheterization. Provider notified.
[2024-02-25] MEDS: Tamsulosin HCL 0.4 MG CAPSULE PO (21:15)
[2024-02-26] VITALS (7 sets, daily range): BP systolic 102–114; BP diastolic 55–68; PULSE 52–75; RESP 12–16; TEMP 36.2–36.9; O2SAT 95–99; BMI 31.2
[2024-02-26] MEDS: Omeprazole 20 MG CAPSULE.DR PO (04:56)
[2024-02-26] MEDS: Midodrine HCl 2.5 MG TABLET PO ×2 (09:51→12:28)
[2024-02-26] MEDS: Apixaban 5 MG TABLET PO (09:51)
[2024-02-26] MEDS: Famotidine 20 MG TABLET PO (09:51)
[2024-02-26] MEDS: Atorvastatin Calcium 80 MG TABLET PO (09:51)
[2024-02-26] MEDS: Finasteride 5 MG TABLET PO (09:51)
[2024-02-26] MEDS: Metoprolol Succinate ER 25 MG TAB.ER.24H PO (09:51)
[2024-02-26] MEDS: buPROPion HCl XL 300 MG TAB.ER.24H PO (09:51)
[2024-02-26] MEDS: Digoxin 0.125 MG TABLET 0.25 MG PO (09:52)
--- NOTE | 2024-02-26 12:32 | MHC.CM.PN ---
Addendum entered by Yareli Cerda 02/26/24 15:05: PT DECLINED SHUTTLE TRANSPORT HE DID NOT WANT TO LEAVE THAT EARLY HE CALLED HIS DAUGHTER WHO WILL PROVIDE TRANSPORT Original Note: PER MD ROUNDS, PT WILL LIKELY DC TODAY STR WAS RECOMMENDED, HOWEVER PT WOULD HAVE A COPAY SO DECLINES PT WILL DC BACK TO THE [facility] WITH [facility] CM WILL ARRANGE TRANSPORT ONCE DC IS IN
[2024-02-26] MEDS: Albuterol Sulfate 90 MCG 8 GM INHALER 2 PUFF INHALE (12:34)
--- NOTE | 2024-02-26 13:27 | P.DS_ITS ---
DS: Providers Provider Date of Service: 02/26/24 Date of admission: 02/18/24 09:20 Primary care physician: Babatunde Plascencia MD Consults: 02/18/24 09:25 Consult to Cardiology Routine Consulting Provider: [facility] Reason for consultation: Chf,AFIB,orthostasis Has provider been notified: Yes DS: Diagnosis Discharge Diagnosis (1) Acute heart failure: Status: Acute (2) Atrial fibrillation with rapid ventricular response: Status: Acute DS: Summary Hospital Course Hospital Course: History and physical as per admitting provider. 68 y/o male ex smoker (60 pack year hx),COPD CHF AFib on Eliquis which he has not taking for last few weeks with just admitted to [facility] discharged on 02/02 , dc on 02/06 for weakness ,with similar symptoms comes here for shortness a breath cough for last 3- 4 days patient's used to be on furosemide but they stopped it at the time of discharge no leg swelling does have a cough with mucopurulent phlegm patient complaining of increased dizziness (specially on standing patient had hypotension at the time of admission hence torsemide and Flomax was stopped).patient says he appitite and hydration also low. patient seems orthostatic in ed ,generalised weak ,tachy and sob, elevated bnp, leg edema - given ivf /midodrine ,ceftriaxone -requested admission for possible chf . lactic acid elevated sec to hypovolemia/orthostsis ,nebs he says he received Patient is generlaised weak ,lightheadness ,sob with excersion, has leg edema ,unable to tell if any weight gain ,poor histroian , does not seems very complaint patient. Heart failure exacerbation with preserved ejection fraction/right heart failure Likely in the setting of afib RVR with underlying biatrial enlargement and mod- severe tricuspid regurgitation BNP trended down, stopped IV lasix, continue torsemide echo - EF 60-65% with mild LVH, biatrial enlargement, moderately dilated right ventricle with moderate to severe RV systolic dysfunction, moderate to severe tricuspid regurgitation, small loculated pericardial effusion YASMINE. Resolved due to lasix treated with IV fluids lasix stopped, continue torsemide Atrial fibrillation with rapid ventricular response increased dose of digoxin and metoprolol Continue oral anticoagulation with Eliquis Cardiology following Mild COPD exacerbation Continue albuterol Completed 5 days of oral prednisone repeat CXR with likely atelectasis-incentive spirometry Possible orthostatic hypotension tiburcio stocking continue midodrine History of aortic aneurysm measuring 5.0 As per [facility] records, outpatient vascular follow-up Time Attestation Discharge Coordination Time (in mins): 40 Quality: Safe Use of Opioids Does Pt have an Active Cancer Diagnosis on the Problem List?: No Quality: Stroke Does the patient have a stroke diagnosis?: No Physical Exam Vital Signs: Vital Signs: Last Vital Signs Temp 97.7 F 02/26/24 11:44 Pulse 68 02/26/24 12:34 Resp 16 02/26/24 12:34 BP 109/66 02/26/24 12:28 Pulse Ox 95 02/26/24 11:44 O2 Del Method Room Air 02/26/24 11:44 BMI result Body Mass Index 31.2 Appearing in no acute distress head is normocephalic atraumatic eyes pupils are PERRLA sclera is anicteric mouth throat mucous membranes are intact and moist neck is supple no lymphadenopathy, no JVD noted lung sounds are clear to auscultation heart regular rate rhythm, clear S1, S2 positive bowel sounds, abdomen is soft, nontender neuro patient is alert x3, no focal deficits DS: Data Data Completed and Pending Labs on day of discharge: Laboratory Results - last 24 hr 02/22/24 09:49 Smear Path Review SEE NOTE Discharge Plan Discharge Anticipated Discharge Date/Time: 02/26/24 12:37 Patient Disposition: Home Health Service Discharge Diagnosis: YASMINE Heart failure with preserved ejection fraction Atrial fibrillation with rapid ventricular response COPD exacerbation Referrals: Babatunde Plascencia MD [Primary Care Provider] - 1 Week Discharge Medications: New tamsulosin 0.4 mg Capsule 0.4 mg PO BEDTIME Qty: 30 0RF digoxin 125 mcg (0.125 mg) Tablet 0.25 mg PO DAILY Qty: 60 0RF Protocol: Hold for HR <: HOLD for HR < : 60 midodrine 2.5 mg Tablet 2.5 mg PO TIDWM Qty: 90 0RF metoprolol succinate 25 mg Tablet Extended Release 24 Hr 25 mg PO BID Qty: 60 0RF Protocol: Hold for SBP/HR < HOLD for SBP < : 90 HOLD for HR < : 60 Continued atorvastatin 80 mg tablet 80 mg PO DAILY oxycodone-acetaminophen 5-325 mg tablet 1 tab PO Q6H PRN (Reason: Pain (Scale Score 4-6)) albuterol sulfate 90 mcg/actuation HFA aerosol inhaler 1 - 2 puff inhalation Q4-6H PRN (Reason: Shortness Of Breath Or Wheezing) bupropion HCl 300 mg tablet extended release 24 hr 300 mg PO DAILY torsemide 20 mg Tablet 20 mg PO DAILY PRN (Reason: Weight Gain) famotidine 20 mg tablet 20 mg PO BID omeprazole 20 mg capsule,delayed release(DR/EC) 20 mg PO BID@0630,1630 finasteride 5 mg Tablet 5 mg PO DAILY Eliquis 5 mg Tablet 5 mg PO BID Spiriva Respimat 1.25 mcg/actuation Mist 2 puff INHALATION DAILY Trelegy Ellipta 100-62.5-25 mcg Blister With Device 1 inh INHALATION DAILY aspirin 81 mg Tablet,Delayed Release (Dr/Ec) 81 mg PO DAILY Discontinued metoprolol succinate 25 mg tablet extended release 24 hr 25 mg PO DAILY Discharge Orders: Discharge Order (Routine); Ordered 02/26/24 Ordered By: Ros Swartz Diet: Advance to usual diet Activity on Discharge: As tolerated Stand Alone Forms: Patient Portal Discharge page Print Language: Welsh Care Plan Goals: Home with visiting nurse services Health Concerns: YASMINE Heart failure with preserved ejection fraction Atrial fibrillation with rapid ventricular response COPD exacerbation Plan of Treatment: Follow-up with primary care provider as needed Take all medications as prescribed Assessment: See discharge summary
--- NOTE | 2024-02-26 14:56 | W.MHC.F2F ---
Service Date Service Date: 02/26/24 Encounter Date of encounter: 02/26/24 Reasons for Services Signs and symptoms assessed: CHF, COPD Reason for detention: CV/CP assess and/or care Reason for physical therapy: home safety and mobility Homebound: Leaving the home is medically contraindicated at this time without the asist of a device and/or another person due th the listed conditions above and below. Reason homebound: weakness related to hospital stay Certification: Based on the above findings, I certify that this patient is confined to the home and needs intermittent detention care, physical therapy and/or speech therapy, or continues to need occupational therapy. The patient is under my care, and I have initiated the establishment of the plan of care. The patient will be followed by a physician who will periodically review the plan of care. Time Spent With Patient Time: Total time managing care of this patient today ____ minutes.
== END 2024-02-26 16:03 | disposition home health service (06) | DRG 292 ==
LOC: HO.ED 02-18 07:01 → HO.EDOVER 02-18 09:24 → HO.IMC 02-18 13:31
PROVIDERS: Physician Assistant Medical; Admitting Provider Internal Medicine; Emergency Provider Internal Medicine; PCP Internal Medicine; Visit Provider Nurse Practitioner Acute Care
DX: I50.33 Acute on chronic diastolic (congestive) heart failure (principal); J44.1 Chronic obstructive pulmonary disease with (acute) exacerbation; J98.11 Atelectasis; N17.9 Acute kidney failure, unspecified; I48.0 Paroxysmal atrial fibrillation; I95.1 Orthostatic hypotension; I07.1 Rheumatic tricuspid insufficiency; Z20.822 Contact with and (suspected) exposure to COVID-19; Z87.891 Personal history of nicotine dependence; Z79.82 Long term (current) use of aspirin; Z79.01 Long term (current) use of anticoagulants; Z79.899 Other long term (current) drug therapy
CPT/HCPCS: 0241U; 36415; 71045; 71250; 80048; 80053; 81001; 82803; 83605; 83880; 84484; 85025; 85027; 85610; 87040; 87086; 87635; 93005; 93306; 94640; 97162; 97530; 99285; C1758; J0696; J1160; J1940; J2405; P9047; Q9957

== ENCOUNTER → 2024-02-17 22:29 | Outpatient (BNV) | payer MEDICARE, SELFPAY | PROVIDERS: Admitting Provider Internal Medicine; Emergency Provider Internal Medicine; PCP Internal Medicine; Visit Provider Internal Medicine | DX: I48.91 Unspecified atrial fibrillation (principal) | CPT/HCPCS: 93010 ==

== ENCOUNTER 2024-02-18 09:20 | Outpatient (BNV) | payer MEDICARE, SELFPAY | END 2024-02-22 07:00 | PROVIDERS: Admitting Provider Internal Medicine; Emergency Provider Internal Medicine; PCP Internal Medicine; Visit Provider Internal Medicine Cardiovascular Disease | DX: I36.1 Nonrheumatic tricuspid (valve) insufficiency (principal); I34.81 Nonrheumatic mitral (valve) annulus calcification; I35.8 Other nonrheumatic aortic valve disorders; R93.1 Abnormal findings on diagnostic imaging of heart and coronary circulation | CPT/HCPCS: 93306 ==

== ENCOUNTER 2024-02-18 09:20 | Outpatient (BNV) | payer MEDICARE, SELFPAY | END 2024-02-19 01:12 | PROVIDERS: Admitting Provider Internal Medicine; Emergency Provider Internal Medicine; PCP Internal Medicine; Visit Provider Internal Medicine Cardiovascular Disease | DX: I48.91 Unspecified atrial fibrillation (principal) | CPT/HCPCS: 93010 ==

== ENCOUNTER → 2024-02-18 09:20 | Outpatient (BNV) | payer MEDICARE, SELFPAY | PROVIDERS: Admitting Provider Internal Medicine; Emergency Provider Internal Medicine; PCP Internal Medicine; Visit Provider Internal Medicine | DX: I50.9 Heart failure, unspecified (principal); I48.91 Unspecified atrial fibrillation | CPT/HCPCS: 99223; 99233 ==

== ENCOUNTER → 2024-02-18 09:20 | Outpatient (BNV) | payer MEDICARE, SELFPAY | PROVIDERS: Admitting Provider Internal Medicine; Emergency Provider Internal Medicine; PCP Internal Medicine; Visit Provider Internal Medicine | DX: I50.9 Heart failure, unspecified (principal); I48.91 Unspecified atrial fibrillation | CPT/HCPCS: 99223; 99232; 99239; G0180 ==

== ENCOUNTER 2024-04-28 21:38 | Inpatient (IN) | payer MEDICARE, SELFPAY ==
--- NOTE | ~2024-04-28 | XR_ITS ---
CLINICAL HISTORY: cough, hypotension 1 view chest x-ray Comparison: Chest x-ray from 02/21/2024 Findings: Small left pleural effusion with underlying left basilar atelectasis and/or consolidation. Mild emphysematous changes are redemonstrated. No pneumothorax in the [id number]. Imaged mediastinum and osseous structures appear unchanged. IMPRESSION: Small left pleural effusion with left basilar atelectasis and/or consolidation. This document has been electronically signed by: Petros Juarez MD on 04/28/2024 22:49:19
--- NOTE | ~2024-04-28 | CT_ITS ---
CLINICAL HISTORY: r o L pna CT chest without contrast Comparison: Chest CT from 02/18/2024 Findings: Airspace disease in the left lower lobe is nonspecific and may reflect the reported history of the pneumonia; given air bronchograms. Mild bronchiectasis also suggested at this time. Overall worsening consolidation left lower lobe; with new pleural thickening about small left pleural fluid concerning for developing empyema measuring 2.2 x 7.5 cm (image number 44 of series 3 in this noncontrast study). Postobstructive phenomenon not excluded. No pneumothorax. Emphysematous changes and scarring noted in both lungs. Mild decrease in right pleural fluid. Mild narrowing of the trachea remains nonspecific no significant change from comparison. Cartilage loss is favored by imaging at this time. Mild to moderate rib deformities appear old chronic including old healed right lateral 1st rib fracture with the adjacent fragment. Degenerative changes include the imaged shoulders and imaged spine. Mild vertebral height losses appear old chronic. No definite change of the imaged upper abdomen by noncontrast imaging. IMPRESSION: 1. Developing pleural thickening concerning for empyema involving left lower dorsal pleural space, in this noncontrast study. 2. Consolidation persists in the left lung base concerning for underlying pneumonia. Recommend attention on follow-up to ensure resolution. 3. Mild decrease in small right pleural effusion compared to 02/18/2024 This document has been electronically signed by: Petros Juarez MD on 04/29/2024 02:27:10
[2024-04-28 21:45] VITALS: BP 70/30; PULSE 100; O2SAT 89
[2024-04-28 21:47] VITALS: BP 81/56; PULSE 109; RESP 26; TEMP 36.3; O2SAT 98; BMI 29.4
--- NOTE | 2024-04-28 21:53 | ECG_ITS ---
Test Reason : WEAKNESS Blood Pressure : */* mmHG Vent. Rate : 102 BPM Atrial Rate : * BPM P-R Int : * ms QRS Dur : 144 ms QT Int : 336 ms P-R-T Axes : * 15 -37 degrees QTcB Int : 437 ms Atrial fibrillation with rapid ventricular response Right bundle branch block Possible Inferior infarct , age undetermined T wave abnormality, consider lateral ischemia Abnormal ECG When compared with ECG of 19-Feb-2024 01:12, No significant change was found Referred By: Generic ED Physician Electronically Signed By: Andrea Burgess
[2024-04-28 22:11] LABS: MANUAL DIFF FLAG NO
[2024-04-28 22:12] LABS: Basophils Percent Auto 0.4 % (0-2); Eosinophils Percent Auto 0.1 % (0-4); Hematocrit 29.4 % (42.0-52.0); Hemoglobin 9.2 g/dl (14.0-18.0); Imm Gran Abs Auto 0.05 X10*3/uL (0.00-0.03); Imm Gran Pct Auto 0.5 % (0.0-0.4); Lymphocytes Absolute Auto 0.7 X10*3/uL (1.2-4.9); Mean Corpuscular HGB Conc 31.3 g/dl (31.0-36.0); Mean Corpuscular Hemoglobin 27.6 pg (27.0-33.0); Mean Corpuscular Volume 88.3 fL (80.0-98.0); Mean Platelet Volume 8.5 fL (9.4-12.4); Monocytes Absolute Auto 0.5 X10*3/uL (0.1-1.2); Monocytes Percent Auto 5.3 % (2-11); NRBC Pct Auto 0.4 /100WBC (0.0-0.2); Neutrophils Absolute Auto 8.2 x10*3/uL (2.0-8.3); Neutrophils Percent Auto 86.7 % (45-73); Platelet Count 376 X10*3/uL (160-400); Red Blood Count 3.33 X10*6/uL (4.60-5.80); Red Cell Distribution Width 21.6 % (11.0-16.0); White Blood Count 9.5 X10*3/uL (4.8-10.8)
[2024-04-28 22:18] LABS: INTERNATIONAL NORM RATIO 1.2 (0.9-1.1); Prothrombin Time 14.2 SEC (10.9-12.4)
[2024-04-28 22:27] VITALS: BP 87/54
[2024-04-28] MEDS: Midodrine HCl 10 MG TABLET PO (22:27)
[2024-04-28] MEDS: 0.9 % Sodium Chloride 2,000 ML 999 ML IVCONT (22:48)
[2024-04-28 22:58] LABS: Influenza A PCR NEGATIVE (Negative); Influenza B PCR NEGATIVE (Negative); Resp Syncy Virus RNA Qual PCR NEGATIVE (Negative); SARS COV2 PCR INHOUSE NEGATIVE (Negative)
[2024-04-28 23:01] LABS: Lactic Acid 2.8 mmol/L (0.5-2.0)
[2024-04-28 23:03] LABS: Troponin-I High Sensitivity 9.4 ng/L (<3.5-35.0)
[2024-04-28 23:15] LABS: Alanine Aminotransferase < 6 U/L (0-40); Albumin Level 2.3 g/dL (3.5-5.0); Alkaline Phosphatase 102 U/L (39-117); Anion Gap 10 (12-20); Aspartate Amino Transferase 24 U/L (5-37); Bilirubin Total 0.8 mg/dL (0.0-1.0); Blood Urea Nitrogen 12 mg/dL (9-16); Carbon Dioxide 25 mmol/L (22-29); Chloride 106 mmol/L (96-108); Creatinine Clr Calc Pharmacy 69.7; Estimated Glomerular Filt Rate > 60; Ethanol < 10 mg/dL; Glucose Random 114 mg/dL (60-115); Magnesium 1.8 mg/dL (1.6-2.6); Potassium 3.9 mmol/L (3.3-5.1); Sodium 137 mmol/L (135-145); Total Protein 5.8 g/dL (6.5-8.0)
--- NOTE | 2024-04-28 23:41 | ED_ITS ---
HPI - Weakness General Chief complaint: Weakness Stated complaint: WEAKNESS, DIZZY, UNCOOPERATIVE PER EMS Time Seen by Provider: 04/28/24 22:11 Source: patient and EMS Mode of arrival: EMS Limitations: no limitations History of Present Illness ED Provider: Dr. Marquita Hernández HPI Narrative: patient comes to the emergency room via ambulance from police station. 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 EMS was called and brought to the emergency room. Patient states that for the last few weeks, patient has been feeling weak, lightheaded . Patient states that he is supposed to take Eliquis but has not taking any for the last 3 months due to insurance problems. Patient states that he can not afford the co-payment. Per EMS, patient's initial blood pressure in the low 80s. Patient is completely awake, alert, states that he has not had any normal recent URI symptoms, no nausea vomiting or diarrhea, denies any possible infections to his knowledge. Related Data Home Medications ?Medication ?Instructions ?Recorded ?Confirmed albuterol sulfate 90 mcg/actuation 1 - 2 puff inhalation Q4-6H PRN 02/18/24 02/18/24 aerosol inhaler Shortness Of Breath Or Wheezing apixaban 5 mg tablet (Eliquis) 5 mg PO BID 02/18/24 02/18/24 aspirin 81 mg tablet,delayed 81 mg PO DAILY 02/18/24 02/18/24 release atorvastatin 80 mg tablet 80 mg PO DAILY 02/18/24 02/18/24 bupropion HCl 300 mg 24 hr tablet, 300 mg PO DAILY 02/18/24 02/18/24 extended release famotidine 20 mg tablet 20 mg PO BID 02/18/24 02/18/24 finasteride 5 mg tablet 5 mg PO DAILY 02/18/24 02/18/24 fluticasone fur. 100 mcg-umeclid 1 inh inhalation DAILY 02/18/24 02/18/24 62.5 mcg-vilant 25 mcg inhalat.powder (Trelegy Ellipta) omeprazole 20 mg capsule,delayed 20 mg PO BID@0630,1630 02/18/24 02/18/24 release oxycodone-acetaminophen 5 mg-325 1 tab PO Q6H PRN Pain (Scale Score 02/18/24 02/18/24 mg tablet 4-6) tiotropium bromide 1.25 2 puff inhalation DAILY 02/18/24 02/18/24 mcg/actuation mist for inhalation (Spiriva Respimat) torsemide 20 mg tablet 20 mg PO DAILY PRN Weight Gain 02/18/24 02/18/24 Previous Rx's ?Medication ?Instructions ?Recorded digoxin 125 mcg (0.125 mg) tablet 0.25 mg PO DAILY #60 tabs 02/26/24 metoprolol succinate 25 mg 25 mg PO BID #60 tabs 02/26/24 tablet,extended release 24 hr midodrine 2.5 mg tablet 2.5 mg PO TIDWM #90 tabs 02/26/24 tamsulosin 0.4 mg capsule 0.4 mg PO BEDTIME #30 caps 02/26/24 Allergies Allergy/AdvReac Type Severity Reaction Status Date / Time No Known Allergies Allergy Verified 04/28/24 21:52 Review of Systems 2 Review of Systems: Constitutional : No Weight loss, No Fever, No Chills, No Night Sweats, Complaining of chronic fatigue and weakness ENT/Mouth : No Hearing loss, No Ear Pain, No Nasal Congestion, No Sinus Pain, No Hoarseness, No sore throat, No Rhinorrhea, No Swallowing Difficulty Eyes: No Eye Pain, No Swelling, No Redness, No Foreign Body, No Discharge, No Vision Changes Cardiovascular : No Chest Pain, No SOB, No Dyspnea on Exertion, No Orthopnea, No Edema, No Palpitations Respiratory : No Cough, No Sputum, No Wheezing, No Smoke Exposure, No Dyspnea Gastrointestinal : No Nausea, No Vomiting, No Diarrhea, No Constipation, No abdominal Pain, No Hematochezia, No Melena Genitourinary : no irregular bleeding, No Dysuria, No Urinary Frequency, No Hematuria, No Urinary Incontinence, No Urgency, No Flank Pain, No Urinary Flow Changes, No Hesitancy Musculoskeletal : No joint pain, No Myalgias, No Joint Swelling Skin : No Skin Lesions, No rash Neuro : No Weakness, No Numbness, No Paresthesias, No Loss of Consciousness, No Dizziness, No Headache Psych : No Anxiety/Panic, No Depression, No SI/HI/AH/VH, No Social Issues, Heme/Lymph: No Bruising, No Bleeding,No Lymphadenopathy Endocrine : No Polyuria, No Polydipsia, No Temperature Intolerance [facility] Past Medical History Medical History Atrial fibrillation (HFpEF) heart failure with preserved ejection fraction CKD (chronic kidney disease) Lung cancer Abdominal aortic aneurysm PVD (peripheral vascular disease) COPD (chronic obstructive pulmonary disease) Atrial fibrillation Social History Social History Household Members: None Housing: Homeless Do you presently have visiting nurse or other home services: No Alcohol intake: former Comment: rings appropriately Patient Tobacco Use Status: Former Tobacco user Smoked in Last 30 Days: No Use of substances other than those prescribed or required for medical reasons: No Advance Directives: Yes Advance Directives on File: Yes Advance Directives Date on File: 02/27/24 Do you have a plan to hurt others: No Plan service: No Physical Exam 2 Vital Signs: Vital Signs: Last Vital Signs Temp 98.1 F 04/28/24 23:44 Pulse 103 H 04/29/24 05:55 Resp 20 04/29/24 05:55 BP 101/65 04/29/24 05:55 Pulse Ox 95 04/29/24 05:55 O2 Del Method Room Air 04/29/24 05:55 Oxygen Flow Rate 1.5 04/28/24 21:47 BMI result Body Mass Index 29.4 Const: Other: Appearance: Alert. Oriented X3. No acute distress. Eyes: Pupils equal, round and reactive to light. ENT: Pharynx normal. Neck: Normal inspection. Neck supple. No lymph nodes noted. No crepitus CVS: Normal heart rate and rhythm. Pulses normal. Normal S1 and S2 Respiratory: No respiratory distress. Breath sounds normal. No Wheezing. No rales Abdomen: Soft and nontender. No rigidity. No distention. Skin: Skin warm and dry. pale skin color. Normal skin turgor. Extremities: No lower extremity edema. No Lacerations. No Rash Neuro: Oriented X 3. No motor deficit. No sensory deficit. Moving all extremities. No slurred speech. CN 2 through 12 grossly intact Psych: calm, cooperative, normal affect Course Course Course Narrative: on arrival, patient noted to be in atrial fibrillation. However, his rate is controlled, 90-100. Patient has no chest pain or shortness of breath. Patient's initial blood pressure in the low 80s. I reviewed patient's medical records from last admission/ discharge in February of 2024. Patient was hypotensive than As well. Seems that patient was dehydrated and patient had not been eating. Patient reports the same this time, patient is not eating or drinking any fluids. Patient had an echocardiogram done in February of 2024, ejection fraction 60- 65% with mild LVH at this time, 22:15, sepsis is not suspected. After reviewing patient's chart, seems that patient is prone to hypotension, secondary to poor p.o. intake , both solid and liquid. All of patient's labs pending Medications Administered Discontinued Medications Generic Name Dose Route Start Last Admin Trade Name Freq PRN Reason Stop Dose Admin Ceftriaxone Sodium 1 gm 04/29/24 03:21 04/29/24 03:47 Ceftriaxone Sodium 1 Gm Vial IVPUSH 04/29/24 03:22 1 gm ONCE ONE Administration Sodium Chloride 2,000 mls @ 999 mls/hr 04/28/24 22:19 04/29/24 01:39 Ns IVCONT 04/29/24 00:19 Infused .Q2H1M ONE Infusion Albumin Human 100 mls @ 100 mls/hr 04/28/24 23:30 04/29/24 01:55 Kedbumin 25 % IV 04/29/24 01:29 Infused Q1H DOMENIC Infusion Metronidazole 500 mg in 100 mls @ 100 mls/hr 04/29/24 03:21 04/29/24 05:24 Flagyl IV 04/29/24 04:20 Infused ONCE ONE Infusion Sodium Chloride 1,000 mls @ 999 mls/hr 04/29/24 03:26 04/29/24 06:31 Ns IVCONT 04/29/24 04:26 Infused .Q1H1M ONE Infusion Midodrine 10 mg 04/28/24 22:19 04/28/24 22:27 Midodrine Hcl 10 Mg Tablet PO 04/28/24 22:20 10 mg ONCE ONE Administration Medical Decision Making Medical Decision Making [facility] Narrative: my interpretation of labs: Patient's hematology at baseline, normal white blood cell count. No significant abnormality in patient's blood gases, normal chemistry lactic acid 2.8 likely secondary to dehydration. albumin 2.3, decreased. ETOH level negative, serology negative for influenza RSV and COVID - patient may need other type of anticoagulation rather than Eliquis. Patient can not afford it. - at this time, 02:00, we do not have patient's urine back, chest x-ray shows a pleural effusion, unclear if patient has an infiltrate but it is not clear. Patient has not had any URI symptoms at all, no coughing no fever. So far infection is still not suspected. After IV fluid hydration and a dose of midodrine and albumin, patient's blood pressure we were informed that the BNP analyzer is down and we will not be getting any results today. At this time, CHF exacerbation not suspected Urinalysis pending. At this time, 03:25, we received the CT scan of the patient. CT scan shows developing pleural thickening concerning for empyema involving the left lower dorsal pleural space. Consolidation in the left lower lung base concerning for pneumonia. At this time, antibiotics were started. No chest pain or shortness of breath. I discussed the CT findings with the patient, patient states that now that he thinks about it, he has been coughing more than usual. I discussed the patient with Dr. Brannon, patient being admitted. patient is under the hospitalist service. the patient is still boarding in the emergency room. I was informed by the patient's nurse and the hospitalist that the patient's hemoglobin dropped to 6.8. It was initially 9.2. Patient states that he has no black stool, no GI bleed, has been off Eliquis for 3+ months. Initially the plan was to start warfarin but it has not been started yet. Rectal exam does not show any blood or dark stool, only brown stool. Occult blood has been sent to the lab. Type and screen pending Differential Diagnosis Differential Diagnoses: The differential diagnosis associated with the presentation includes ( UTI, deconditioning, failure to thrive, viral illness) Admission/Observation Consideration of admission/observation: Escalation of care including admission/observation considered Consult Healthcare Provider Management of the patient was discussed with: Hospitalist Lab Data MDM Lab Attestation statement: I reviewed the patient's lab results. 04/29/24 05:52 04/29/24 05:52 Labs: Lab Results 04/28/24 04/28/24 04/28/24 Range/Units 22:05 22:09 22:34 WBC 9.5 (4.8-10.8) X10*3/uL RBC 3.33 L (4.60-5.80) X10*6/uL Hgb 9.2 L (14.0-18.0) g/dl Hct 29.4 L (42.0-52.0) % MCV 88.3 (80.0-98.0) fL MCH 27.6 (27.0-33.0) pg MCHC 31.3 (31.0-36.0) g/dl RDW 21.6 H (11.0-16.0) % Plt Count 376 (160-400) X10*3/uL MPV 8.5 L (9.4-12.4) fL Immature Gran % (Auto) 0.5 H (0.0-0.4) % Neut % (Auto) 86.7 H (45-73) % Lymph % (Auto) 7.0 L (20-40) % [place] % (Auto) 5.3 (2-11) % Eos % (Auto) 0.1 (0-4) % Baso % (Auto) 0.4 (0-2) % Lymph # (Auto) 0.7 L (1.2-4.9) X10*3/uL [place] # (Auto) 0.5 (0.1-1.2) X10*3/uL Eos # (Auto) 0.0 (0.0-0.4) X10*3/uL Baso # (Auto) 0.0 (0.0-0.2) X10*3/uL Abs Immat Gran (auto) 0.05 H (0.00-0.03) X10*3/uL Absolute Neuts (auto) 8.2 (2.0-8.3) x10*3/uL Absolute Nucleated RBC 0.040 H (0.0-0.012) X10*3/uL Nucleated RBC % (auto) 0.4 H (0.0-0.2) /100WBC PT 14.2 H (10.9-12.4) SEC INR 1.2 H (0.9-1.1) Sodium Potassium Chloride Carbon Dioxide Anion Gap BUN Creatinine Estim Creat Clear Calc Estimated GFR Random Glucose Lactic Acid 2.8 H* (0.5-2.0) mmol/L Lactic Acid F/U @ 2Hr (0.5-2.0) mmol/L Calcium Magnesium Total Bilirubin AST ALT Alkaline Phosphatase Troponin I High Sens (<3.5-35.0) ng/L B-Natriuretic Peptide (<100) pg/mL Total Protein Albumin Ethyl Alcohol mg/dL Influenza Type A (PCR) NEGATIVE (Negative) Influenza Type B (PCR) NEGATIVE (Negative) RSV RNA Qual (PCR) NEGATIVE (Negative) SARS-CoV-2 RNA (RT-PCR) NEGATIVE (Negative) 04/28/24 04/28/24 04/28/24 Range/Units 22:35 22:36 22:49 WBC (4.8-10.8) X10*3/uL RBC (4.60-5.80) X10*6/uL Hgb (14.0-18.0) g/dl Hct (42.0-52.0) % MCV (80.0-98.0) fL MCH (27.0-33.0) pg MCHC (31.0-36.0) g/dl RDW (11.0-16.0) % Plt Count (160-400) X10*3/uL MPV (9.4-12.4) fL Immature Gran % (Auto) (0.0-0.4) % Neut % (Auto) (45-73) % Lymph % (Auto) (20-40) % [place] % (Auto) (2-11) % Eos % (Auto) (0-4) % Baso % (Auto) (0-2) % Lymph # (Auto) (1.2-4.9) X10*3/uL [place] # (Auto) (0.1-1.2) X10*3/uL Eos # (Auto) (0.0-0.4) X10*3/uL Baso # (Auto) (0.0-0.2) X10*3/uL Abs Immat Gran (auto) (0.00-0.03) X10*3/uL Absolute Neuts (auto) (2.0-8.3) x10*3/uL Absolute Nucleated RBC (0.0-0.012) X10*3/uL Nucleated RBC % (auto) (0.0-0.2) /100WBC PT (10.9-12.4) SEC INR (0.9-1.1) Sodium Cancelled 137 Potassium Cancelled 3.9 Chloride Cancelled 106 Carbon Dioxide Cancelled 25 Anion Gap Cancelled 10 L BUN Cancelled 12 Creatinine Cancelled 1.09 Estim Creat Clear Calc Cancelled 69.7 Estimated GFR Cancelled > 60 Random Glucose Cancelled 114 Lactic Acid (0.5-2.0) mmol/L Lactic Acid F/U @ 2Hr (0.5-2.0) mmol/L Calcium Cancelled 8.0 L D Magnesium Cancelled 1.8 Total Bilirubin Cancelled 0.8 AST Cancelled 24 ALT Cancelled < 6 Alkaline Phosphatase Cancelled 102 Troponin I High Sens 9.4 (<3.5-35.0) ng/L B-Natriuretic Peptide 680 H (<100) pg/mL Total Protein Cancelled 5.8 L Albumin Cancelled 2.3 L Ethyl Alcohol < 10 mg/dL Influenza Type A (PCR) (Negative) Influenza Type B (PCR) (Negative) RSV RNA Qual (PCR) (Negative) SARS-CoV-2 RNA (RT-PCR) (Negative) 04/29/24 Range/Units 00:56 WBC (4.8-10.8) X10*3/uL RBC (4.60-5.80) X10*6/uL Hgb (14.0-18.0) g/dl Hct (42.0-52.0) % MCV (80.0-98.0) fL MCH (27.0-33.0) pg MCHC (31.0-36.0) g/dl RDW (11.0-16.0) % Plt Count (160-400) X10*3/uL MPV (9.4-12.4) fL Immature Gran % (Auto) (0.0-0.4) % Neut % (Auto) (45-73) % Lymph % (Auto) (20-40) % [place] % (Auto) (2-11) % Eos % (Auto) (0-4) % Baso % (Auto) (0-2) % Lymph # (Auto) (1.2-4.9) X10*3/uL [place] # (Auto) (0.1-1.2) X10*3/uL Eos # (Auto) (0.0-0.4) X10*3/uL Baso # (Auto) (0.0-0.2) X10*3/uL Abs Immat Gran (auto) (0.00-0.03) X10*3/uL Absolute Neuts (auto) (2.0-8.3) x10*3/uL Absolute Nucleated RBC (0.0-0.012) X10*3/uL Nucleated RBC % (auto) (0.0-0.2) /100WBC PT (10.9-12.4) SEC INR (0.9-1.1) Sodium Potassium Chloride Carbon Dioxide Anion Gap BUN Creatinine Estim Creat Clear Calc Estimated GFR Random Glucose Lactic Acid (0.5-2.0) mmol/L Lactic Acid F/U @ 2Hr 1.7 (0.5-2.0) mmol/L Calcium Magnesium Total Bilirubin AST ALT Alkaline Phosphatase Troponin I High Sens (<3.5-35.0) ng/L B-Natriuretic Peptide (<100) pg/mL Total Protein Albumin Ethyl Alcohol mg/dL Influenza Type A (PCR) (Negative) Influenza Type B (PCR) (Negative) RSV RNA Qual (PCR) (Negative) SARS-CoV-2 RNA (RT-PCR) (Negative) Independent Interpretation I performed an independent interpretation of an: CT Scan Radiology Impression Discussion of test interpretation with radiology: I have reviewed the radiologist's reading. Radiologist Impression: irspace disease in the left lower lobe is nonspecific and may reflect the reported history of the pneumonia; given air bronchograms. Mild bronchiectasis also suggested at this time. Overall worsening consolidation left lower lobe; with new pleural thickening about small left pleural fluid concerning for developing empyema measuring 2.2 x 7.5 cm (image number 44 of series 3 in this noncontrast study). Postobstructive phenomenon not excluded. No pneumothorax. Emphysematous changes and scarring noted in both lungs. Mild decrease in right pleural fluid. Mild narrowing of the trachea remains nonspecific no significant change from comparison. Cartilage loss is favored by imaging at this time. Mild to moderate rib deformities appear old chronic including old healed right lateral 1st rib fracture with the adjacent fragment. Degenerative changes include the imaged shoulders and imaged spine. Mild vertebral height losses appear old chronic. No definite change of the imaged upper abdomen by noncontrast imaging. IMPRESSION: 1. Developing pleural thickening concerning for empyema involving left lower dorsal pleural space, in this noncontrast study. 2. Consolidation persists in the left lung base concerning for underlying pneumonia. Recommend attention on follow-up to ensure resolution. 3. Mild decrease in small right pleural effusion compared to 02/18/2024 Independent Historian Clinical information obtained from an independent historian. History obtained from or confirmed by: EMS Critical Care Time Critical Care Time Critical Care Time: Yes Total Critical Care Time: 60 Attestation: I have personally provided critical care time. Time includes review of lab data, radiology results, discussion with consultants, and monitoring for potential decompensation. Intervention performed as documented. Discharge Plan Discharge Clinical Impression: Empyema lung, Acute hypotension, Acute dehydration, Adult failure to thrive Patient Disposition: Admitted As Inpatient
[2024-04-28 23:44] VITALS: BP 92/64; PULSE 87; RESP 22; TEMP 36.7; O2SAT 98
[2024-04-28] MEDS: Albumin Human 25 % 100 ML IV (23:57)
[2024-04-29] VITALS (12 sets, daily range): BP systolic 94–118; BP diastolic 56–88; PULSE 89–103; RESP 16–27; TEMP 36.4–36.9; O2SAT 93–96
--- NOTE | 2024-04-29 | PC.NURSE ---
This song writer assumed care of this Pt at 2300. Pt has fluids running per MAR. Pt A&Ox3, denies any pain. 2nd IV line placed. Pt blood pressure 92/64, provider Betty allen, new order given per JUN.
[2024-04-29 00:41] LABS: Reflex Lactate? Lactic Acid Added
[2024-04-29] MEDS: Albumin Human 25 % 100 ML IV (00:46)
[2024-04-29 01:21] LABS: ~Lactic Acid-LAB USE ONLY 1.7 mmol/L (0.5-2.0)
[2024-04-29] MEDS: cefTRIAXone sodium 1 GM VIAL IVPUSH (03:47)
[2024-04-29] MEDS: 0.9 % Sodium Chloride 1,000 ML 999 ML IVCONT (03:47)
[2024-04-29] MEDS: metroNIDAZOLE/NS 500 MG/100 ML PIGGYBACK 100 MG IV ×3 (03:49→20:52)
--- NOTE | 2024-04-29 04:13 | P.HPHOSP_ITS ---
History of Present Illness Date of Service: 04/29/24 Attending physician on admission: Elena Bradford Chief Complaint: weakness, SOB Patient is a 69-year-old male with a past medical history significant for chronic AFib, HFpEF, lung cancer s/p chemo and radiation 2020 (followed by [facility] oncology), abdominal aortic aneurysm, PVD, COPD, and hypotension, who presented to the ED via EMS due to weakness and shortness of breath. 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 He reports a neck pain has resolved however he continues to have shortness of breath and a cough. He has had yellow sputum for the past 3-4 weeks and denies any fever or chills. He will occasionally have some vomiting related to his cough. He denies any chest pain. He does have atrial fibrillation is supposed to be taking Eliquis but reports he has not taken it to a cost but and to restart now that his health insurance is renewed. He has a history of lung cancer s/p chemo and radiation followed by [facility] Oncology. He reports he last saw them 6-8 months ago and is overdue for an appointment for follow-up. He denies any lower extremity edema. He also reports that he has had many episodes of hypotension while hospitalized in the past, suggested to be related to poor p.o. intake. Review of Systems 2 Constitutional: Constitutional: Denies body ache(s), Denies chills, Reports fatigue, Denies fever(s) and Denies headache(s) Eyes: Eyes: Reports change in vision (improved now) ENT: Denies headache(s), Denies nasal discharge and Denies sore throat Cardiovascular: Cardiovascular: Denies chest pain, Denies syncope, Denies rapid heart rate, Denies leg edema and Reports dyspnea on exertion Respiratory: Respiratory: Reports change in phlegm color, Reports cough, Reports dyspnea on exertion and Denies wheezing Gastrointestinal: Gastrointestinal: Denies constipation, Denies diarrhea, Denies nausea and Denies vomiting Genitourinary: Genitourinary: Denies dysuria, Denies urinary frequency and Denies urinary urgency Musculoskeletal: Musculoskeletal: Denies myalgias Integumentary/Breasts: Skin/Breast: Denies rash Neurologic: Denies confusion, Denies syncope and Denies headache(s) Psychiatric: Psychiatric: Denies confusion Endocrine: Endocrine: Reports fatigue Hematologic/Lymphatic: Hematologic/Lymphatic: Denies easy bleeding and Denies easy bruising Allergic/Immunologic: Allergic/Immunologic: Denies wheezing [facility] Medical History Atrial fibrillation (HFpEF) heart failure with preserved ejection fraction CKD (chronic kidney disease) Lung cancer Abdominal aortic aneurysm PVD (peripheral vascular disease) COPD (chronic obstructive pulmonary disease) Atrial fibrillation Social History Household Members: None Housing: Homeless Do you presently have visiting nurse or other home services: No Alcohol intake: former Comment: rings appropriately Patient Tobacco Use Status: Former Tobacco user Smoked in Last 30 Days: No Use of substances other than those prescribed or required for medical reasons: No Advance Directives: Yes Advance Directives on File: Yes Advance Directives Date on File: 02/27/24 Do you have a plan to hurt others: No Plan service: No Narrative: former smoker, quit 3 years ago when dx'd with lung ca, no etoh or drug use Meds Allergies Allergy/AdvReac Type Severity Reaction Status Date / Time No Known Allergies Allergy Verified 04/28/24 21:52 Active Medications: Current Medications Metronidazole (Flagyl) 500 mg in 100 mls @ 100 mls/hr IV ONCE ONE Stop: 04/29/24 04:20 Last Admin: 04/29/24 03:49 Dose: 100 mls/hr Sodium Chloride (Ns) 1,000 mls @ 999 mls/hr IVCONT .Q1H1M ONE Stop: 04/29/24 04:26 Last Admin: 04/29/24 03:47 Dose: 999 mls/hr Home Medications ?Medication ?Instructions ?Recorded ?Confirmed ?Last Taken ?Type albuterol sulfate 90 mcg/actuation 1 - 2 puff inhalation Q4-6H PRN 02/18/24 02/18/24 Unknown History aerosol inhaler Shortness Of Breath Or Wheezing apixaban 5 mg tablet (Eliquis) 5 mg PO BID 02/18/24 02/18/24 Unknown History aspirin 81 mg tablet,delayed 81 mg PO DAILY 02/18/24 02/18/24 Unknown History release atorvastatin 80 mg tablet 80 mg PO DAILY 02/18/24 02/18/24 Unknown History bupropion HCl 300 mg 24 hr tablet, 300 mg PO DAILY 02/18/24 02/18/24 Unknown History extended release famotidine 20 mg tablet 20 mg PO BID 02/18/24 02/18/24 Unknown History finasteride 5 mg tablet 5 mg PO DAILY 02/18/24 02/18/24 Unknown History fluticasone fur. 100 mcg-umeclid 1 inh inhalation DAILY 02/18/24 02/18/24 Unknown History 62.5 mcg-vilant 25 mcg inhalat.powder (Trelegy Ellipta) omeprazole 20 mg capsule,delayed 20 mg PO BID@0630,1630 02/18/24 02/18/24 Unknown History release oxycodone-acetaminophen 5 mg-325 1 tab PO Q6H PRN Pain (Scale Score 02/18/24 02/18/24 Unknown History mg tablet 4-6) tiotropium bromide 1.25 2 puff inhalation DAILY 02/18/24 02/18/24 Unknown History mcg/actuation mist for inhalation (Spiriva Respimat) torsemide 20 mg tablet 20 mg PO DAILY PRN Weight Gain 02/18/24 02/18/24 Unknown History Physical Exam 2 Vital Signs and Narrative: Vital Signs: Last Vital Signs Temp 98.1 F 04/28/24 23:44 Pulse 97 04/29/24 03:57 Resp 20 04/29/24 03:57 BP 99/71 04/29/24 03:57 Pulse Ox 96 04/29/24 03:57 O2 Del Method Room Air 04/29/24 03:57 Oxygen Flow Rate 1.5 04/28/24 21:47 BMI result Body Mass Index 29.4 General: AOx3, no acute distress Resp: CTA bilaterally. no wheezing, crackles or rhonchi. diminshed throughout. CVS: mild tachycardia, +murmur GI: +BS, NT, no distention Skin: Warm, dry Neuro: Cranial nerves II-XII grossly intact bilaterally. Motor grossly intact bilaterally Extremities: No LE edema Psych: Appropriate affect Const: General: No confusion Orientation/consciousness: No confusion Neuro: General: No confusion Results Labs 04/28/24 22:05 04/28/24 22:49 Labs: Laboratory Results - last 24 hr 04/28/24 04/28/24 04/28/24 22:05 22:09 22:34 MCV 88.3 MCH 27.6 MCHC 31.3 RDW 21.6 H Plt Count 376 MPV 8.5 L Immature Gran % (Auto) 0.5 H Neut % (Auto) 86.7 H Lymph % (Auto) 7.0 L Marin % (Auto) 5.3 Eos % (Auto) 0.1 Baso % (Auto) 0.4 Lymph # (Auto) 0.7 L Marin # (Auto) 0.5 Eos # (Auto) 0.0 Baso # (Auto) 0.0 Abs Immat Gran (auto) 0.05 H Absolute Neuts (auto) 8.2 Absolute Nucleated RBC 0.040 H Nucleated RBC % (auto) 0.4 H PT 14.2 H INR 1.2 H Anion Gap Estim Creat Clear Calc Estimated GFR Random Glucose Lactic Acid 2.8 H* Lactic Acid F/U @ 2Hr Calcium Magnesium Total Bilirubin AST ALT Alkaline Phosphatase Troponin I High Sens Total Protein Albumin Ethyl Alcohol Influenza Type A (PCR) NEGATIVE Influenza Type B (PCR) NEGATIVE RSV RNA Qual (PCR) NEGATIVE SARS-CoV-2 RNA (RT-PCR) NEGATIVE 04/28/24 04/28/24 04/28/24 22:35 22:36 22:49 MCV MCH MCHC RDW Plt Count MPV Immature Gran % (Auto) Neut % (Auto) Lymph % (Auto) Marin % (Auto) Eos % (Auto) Baso % (Auto) Lymph # (Auto) Marin # (Auto) Eos # (Auto) Baso # (Auto) Abs Immat Gran (auto) Absolute Neuts (auto) Absolute Nucleated RBC Nucleated RBC % (auto) PT INR Anion Gap Cancelled 10 L Estim Creat Clear Calc Cancelled 69.7 Estimated GFR Cancelled > 60 Random Glucose Cancelled 114 Lactic Acid Lactic Acid F/U @ 2Hr Calcium Cancelled 8.0 L D Magnesium Cancelled 1.8 Total Bilirubin Cancelled 0.8 AST Cancelled 24 ALT Cancelled < 6 Alkaline Phosphatase Cancelled 102 Troponin I High Sens 9.4 Total Protein Cancelled 5.8 L Albumin Cancelled 2.3 L Ethyl Alcohol < 10 Influenza Type A (PCR) Influenza Type B (PCR) RSV RNA Qual (PCR) SARS-CoV-2 RNA (RT-PCR) 04/29/24 00:56 MCV MCH MCHC RDW Plt Count MPV Immature Gran % (Auto) Neut % (Auto) Lymph % (Auto) Marin % (Auto) Eos % (Auto) Baso % (Auto) Lymph # (Auto) Marin # (Auto) Eos # (Auto) Baso # (Auto) Abs Immat Gran (auto) Absolute Neuts (auto) Absolute Nucleated RBC Nucleated RBC % (auto) PT INR Anion Gap Estim Creat Clear Calc Estimated GFR Random Glucose Lactic Acid Lactic Acid F/U @ 2Hr 1.7 Calcium Magnesium Total Bilirubin AST ALT Alkaline Phosphatase Troponin I High Sens Total Protein Albumin Ethyl Alcohol Influenza Type A (PCR) Influenza Type B (PCR) RSV RNA Qual (PCR) SARS-CoV-2 RNA (RT-PCR) Assessment and Plan (1) Empyema lung: Status: Acute (2) Pneumonia: Status: Acute (3) Lactic acidemia: Status: Acute (4) Acute hypotension: Status: Acute (5) Acute dehydration: Status: Acute (6) Normocytic anemia: Status: Acute Plan Patient is a 69-year-old male with a past medical history significant for chronic AFib, HFpEF, lung cancer s/p chemo and radiation 2020 (followed by [facility] oncology), abdominal aortic aneurysm, PVD, COPD, and hypotension, who presented to the ED via EMS due to weakness and shortness of breath. Patient also initially hypotensive which has been a chronic issue for him with hospitalizations due to poor p.o. intake for unknown reason, he does not have nausea or vomiting. He was responsive to midodrine, 3 L of IV fluids and albumin. Chest CT significant for pleural thickening suggestive of empyema in the left lower dorsal pleural space as well as left lower lobe pneumonia. Chest x-ray showed small left pleural effusion. BNP unable to be obtained at this time due to laboratory issues however no lower extremity edema and lung imaging as above. empyema of L lung/pneumonia LLL - WBC 9.5, mild tachycardia and tachypnea, lactic acid 2.8 - tachypnea secondary to empyema and pneumonia, tachycardia and lactic acidemia secondary to dehydration, no sepsis - COVID flu/RSV negative - BNP unable to be obtained due to laboratory issues - chest x-ray with small left pleural effusion, unlikley CHF - chest CT with pleural thickening, empyema left lower dorsal pleural space and left lower lobe pneumonia - patient started on Flagyl and ceftriaxone, continue - pulmonary consult - follow CBC and BMP Acute hypotension secondary to acute dehydration - patient prone to hypotensive episodes in the past due to poor p.o. intake with unknown reason - responsive to 3 L NS, midodrine and albumin - monitor BPs - avoid further fluids due to CHF Lactic acidemia - secondary to dehydration, not sepsis Normocytic anemia, chronic - hemoglobin 9.2 hematocrit 29.4, MCV normal - monitor CBC History of lung cancer - followed by [facility] Oncology - chest CT not suggestive of any recurrence Chronic AFib - restart Eliquis when appropriate - hold any BP lowering meds due to hypotension HFpEF, no acute exacerbation - home meds due to hypotension COPD without acute exacerbation - no wheezing on exam - continue home meds/inhalers Full code VTE prophylaxis: Pneumoboots, restart Eliquis when appropriate Patient with empyema and pneumonia complicated by acute hypotension secondary to acute dehydration, requiring admission for at least 2 midnight stay for IV antibiotics and possible thoracentesis. Quality Stroke Does the patient have a stroke diagnosis?: No VTE Prior VTE?: No VTE Risk Level:: Medical - moderate - high VTE Device Contraindication: N/A - Device Ordered VTE Drug Contraindication: Treatment Not Indicated
[2024-04-29 04:19] LABS: B Type Natriuretic Peptide 680 pg/mL (<100)
--- NOTE | 2024-04-29 04:30 | PC.NURSE ---
Pt made aware of needing urine sample. Pt reports he does not need to use urinal at this time and knows when to use it and will ring call dyer.
[2024-04-29 05:58] LABS: MANUAL DIFF FLAG NO
[2024-04-29 05:59] LABS: Basophils Percent Auto 0.4 % (0-2); Eosinophils Percent Auto 0.2 % (0-4); Hematocrit 21.9 % (42.0-52.0); Imm Gran Abs Auto 0.04 X10*3/uL (0.00-0.03); Imm Gran Pct Auto 0.5 % (0.0-0.4); Lymphocytes Absolute Auto 0.9 X10*3/uL (1.2-4.9); Lymphocytes Percent Auto 10.4 % (20-40); Mean Corpuscular HGB Conc 31.1 g/dl (31.0-36.0); Mean Corpuscular Hemoglobin 27.6 pg (27.0-33.0); Mean Platelet Volume 8.2 fL (9.4-12.4); Monocytes Absolute Auto 0.6 X10*3/uL (0.1-1.2); Monocytes Percent Auto 7.3 % (2-11); NRBC Pct Auto 0.2 /100WBC (0.0-0.2); Neutrophils Absolute Auto 6.9 x10*3/uL (2.0-8.3); Neutrophils Percent Auto 81.2 % (45-73); Platelet Count 264 X10*3/uL (160-400); Red Blood Count 2.46 X10*6/uL (4.60-5.80); Red Cell Distribution Width 21.8 % (11.0-16.0); White Blood Count 8.5 X10*3/uL (4.8-10.8)
[2024-04-29 06:10] LABS: Anion Gap 9 (12-20); Blood Urea Nitrogen 12 mg/dL (9-16); Calcium 7.6 mg/dL (8.4-10.2); Carbon Dioxide 24 mmol/L (22-29); Chloride 110 mmol/L (96-108); Estimated Glomerular Filt Rate > 60; Glucose Random 122 mg/dL (60-115); Potassium 3.4 mmol/L (3.3-5.1); Sodium 140 mmol/L (135-145)
[2024-04-29 06:28] LABS: Hemoglobin 6.8 g/dl (14.0-18.0)
[2024-04-29 06:59] LABS: OBS Int Ctl Valid YES; OBS1 NEGATIVE (NEGATIVE)
--- NOTE | 2024-04-29 07:15 | PC.NURSE ---
Report received from LISA Cabello
[2024-04-29 07:23] LABS: MANUAL DIFF FLAG NO
[2024-04-29 07:33] LABS: Hematocrit 23.6 % (42.0-52.0); Hemoglobin 7.3 g/dl (14.0-18.0)
[2024-04-29 07:34] LABS: Basophils Percent Auto 0.3 % (0-2); Eosinophils Percent Auto 0.5 % (0-4); Hematocrit 23.9 % (42.0-52.0); Hemoglobin 7.3 g/dl (14.0-18.0); Imm Gran Abs Auto 0.05 X10*3/uL (0.00-0.03); Imm Gran Pct Auto 0.6 % (0.0-0.4); Lymphocytes Absolute Auto 1.2 X10*3/uL (1.2-4.9); Lymphocytes Percent Auto 13.9 % (20-40); Mean Corpuscular HGB Conc 30.5 g/dl (31.0-36.0); Mean Corpuscular Hemoglobin 26.9 pg (27.0-33.0); Mean Corpuscular Volume 88.2 fL (80.0-98.0); Mean Platelet Volume 8.5 fL (9.4-12.4); Monocytes Absolute Auto 0.7 X10*3/uL (0.1-1.2); Monocytes Percent Auto 7.5 % (2-11); Neutrophils Absolute Auto 6.9 x10*3/uL (2.0-8.3); Neutrophils Percent Auto 77.2 % (45-73); Platelet Count 278 X10*3/uL (160-400); Red Blood Count 2.71 X10*6/uL (4.60-5.80); Red Cell Distribution Width 22.1 % (11.0-16.0); White Blood Count 8.9 X10*3/uL (4.8-10.8)
--- NOTE | 2024-04-29 09:01 | PHA.MEDREC ---
Pharmacy Consult ? Medication Reconciliation Pharmacy has completed the medication reconciliation, spoke to patient at bedside who confirmed meds. Patient said he is not taking digoxin, midodrine, omeprazole, spiriva and torsemide. Although patient did recently picked up torsemide 04/09 and hasn't had the trellegy since 07/08. Patient stated he takes famotidine once daily instead of BID. Hasn't had his medications in a couple days. Patient also said he hasn't had his eliquis in about 3-4 months because he couldn't afford it but said he is now able to afford it and should have been on it.
--- NOTE | 2024-04-29 09:12 | PC.NURSE ---
Reached out to Jessie Gilliam MD- following up whether or not pt. is going to be receiving a blood transfusion.
--- NOTE | 2024-04-29 10:47 | PC.NURSE ---
Pt. states that he has been having heartburn since breakfast. PRN Tums administered
[2024-04-29] MEDS: Calcium Carbonate 750 MG TAB.CHEW PO (10:52)
[2024-04-29] MEDS: Metoprolol Succinate ER 25 MG TAB.ER.24H PO (10:57)
[2024-04-29] MEDS: Atorvastatin Calcium 80 MG TABLET PO (10:57)
[2024-04-29] MEDS: Magnesium Hydrox/Alum Hydrox 30 ML ORAL.SUSP PO (12:49)
--- NOTE | 2024-04-29 12:49 | HO.PM.IMPN ---
Subjective Subjective Date of Service: 04/29/24 Interval History: f/u on weakness, sob, cough and empayema feels better but still weak, Physical Exam Vital Signs: Vital Signs: Last Vital Signs Temp 97.6 F 04/29/24 12:26 Pulse 99 04/29/24 12:26 Resp 20 04/29/24 12:26 BP 118/88 04/29/24 12:26 Pulse Ox 95 04/29/24 10:57 O2 Del Method Room Air 04/29/24 10:57 Oxygen Flow Rate 1.5 04/28/24 21:47 BMI result Body Mass Index 29.4 General: AO X 3, no acute distress Resp: CTA bilateral CVS: S1,S2,RRR GI: +BS, NT, no distention Skin: No rash Neuro: motor grossly intact Psych: appropriate affect Objective Data Active Medications Acetaminophen (Acetaminophen 325 Mg Tablet) 975 mg PO Q6H PRN PRN Reason: Pain, Mild 1-3,fever,headache Al Hydroxide/Mg Hydroxide (Magnesium Hydrox/Alum Hydrox 30 Ml Oral.Susp) 30 ml PO Q4H PRN PRN Reason: Dyspepsia Albuterol Sulfate (Albuterol Sulfate 90 Mcg 8 Gm Inhaler) 2 puff INHALE RQ4H PRN PRN Reason: Shortness Of Breath Or Wheezing Atorvastatin Calcium (Atorvastatin Calcium 80 Mg Tablet) 80 mg PO DAILY [facility] Last Admin: 04/29/24 10:57 Dose: 80 mg Documented By: LUIS Bupropion HCl (Bupropion Hcl Xl 300 Mg Tab.Er.24h) 300 mg PO DAILY ODMENIC Calcium Carbonate (Calcium Carbonate 750 Mg Tab.Chew) 750 mg PO Q4H PRN PRN Reason: Heartburn Last Admin: 04/29/24 10:52 Dose: 750 mg Documented By: LUIS Ceftriaxone Sodium (Ceftriaxone Sodium 1 Gm Vial) 1 gm IVPUSH Q24H DOMENIC Famotidine (Famotidine 20 Mg Tablet) 20 mg PO DAILY DOMENIC Finasteride (Finasteride 5 Mg Tablet) 5 mg PO DAILY DOMENIC Fluticasone/Umeclidinium/Vilanterol (Fluticasone/Umeclidinium/Vilanterol 100/62.5/25 Blst.W.Dev) 1 puff INHALE RDAILY [facility] Metronidazole (Flagyl) 500 mg in 100 mls @ 100 mls/hr IV Q8H [facility] Magnesium Hydroxide (Milk Of Magnesia 30 Ml Oral.Susp) 30 ml PO DAILY PRN PRN Reason: Constipation Melatonin (Melatonin 3 Mg Tablet) 6 mg PO BEDTIME PRN PRN Reason: Insomnia Metoprolol Succinate (Metoprolol Succinate Er 25 Mg Tab.Er.24h) 25 mg PO DAILY [facility]; Protocol Last Admin: 04/29/24 10:57 Dose: 25 mg Documented By: LUIS Ondansetron HCl (Ondansetron Hcl 4 Mg/2 Ml Vial) 4 mg IVPUSH Q8H PRN PRN Reason: Nausea and Vomiting Oxycodone HCl (Oxycodone Hcl Immed Release 5 Mg Tablet) 5 mg PO Q6H PRN PRN Reason: Pain (Scale Score 4-6) Sodium Chloride (0.9 % Sodium Chloride Flush 3 Ml Syringe) 3 ml IVFLUSH QSHIFT [facility] Last Admin: 04/29/24 07:39 Dose: Not Given Documented By: LUIS Non-Admin Reason: Previously Administered Tamsulosin HCl (Tamsulosin Hcl 0.4 Mg Capsule) 0.4 mg PO BID [facility] Labs 04/30/24 04:23 04/30/24 04:23 Labs: Laboratory Results - last 24 hr 04/28/24 04/28/24 04/28/24 22:05 22:09 22:34 MCV 88.3 MCH 27.6 MCHC 31.3 RDW 21.6 H Plt Count 376 MPV 8.5 L Immature Gran % (Auto) 0.5 H Neut % (Auto) 86.7 H Lymph % (Auto) 7.0 L Johnson % (Auto) 5.3 Eos % (Auto) 0.1 Baso % (Auto) 0.4 Lymph # (Auto) 0.7 L Johnson # (Auto) 0.5 Eos # (Auto) 0.0 Baso # (Auto) 0.0 Abs Immat Gran (auto) 0.05 H Absolute Neuts (auto) 8.2 Absolute Nucleated RBC 0.040 H Nucleated RBC % (auto) 0.4 H PT 14.2 H INR 1.2 H Anion Gap Estim Creat Clear Calc Estimated GFR Random Glucose Lactic Acid 2.8 H* Lactic Acid F/U @ 2Hr Calcium Magnesium Total Bilirubin AST ALT Alkaline Phosphatase Troponin I High Sens B-Natriuretic Peptide Total Protein Albumin Stool Occult Blood Ethyl Alcohol Influenza Type A (PCR) NEGATIVE Influenza Type B (PCR) NEGATIVE RSV RNA Qual (PCR) NEGATIVE SARS-CoV-2 RNA (RT-PCR) NEGATIVE Blood Type Antibody Screen Crossmatch 04/28/24 04/28/24 04/28/24 22:35 22:36 22:49 MCV MCH MCHC RDW Plt Count MPV Immature Gran % (Auto) Neut % (Auto) Lymph % (Auto) Johnson % (Auto) Eos % (Auto) Baso % (Auto) Lymph # (Auto) Johnson # (Auto) Eos # (Auto) Baso # (Auto) Abs Immat Gran (auto) Absolute Neuts (auto) Absolute Nucleated RBC Nucleated RBC % (auto) PT INR Anion Gap Cancelled 10 L Estim Creat Clear Calc Cancelled 69.7 Estimated GFR Cancelled > 60 Random Glucose Cancelled 114 Lactic Acid Lactic Acid F/U @ 2Hr Calcium Cancelled 8.0 L D Magnesium Cancelled 1.8 Total Bilirubin Cancelled 0.8 AST Cancelled 24 ALT Cancelled < 6 Alkaline Phosphatase Cancelled 102 Troponin I High Sens 9.4 B-Natriuretic Peptide 680 H Total Protein Cancelled 5.8 L Albumin Cancelled 2.3 L Stool Occult Blood Ethyl Alcohol < 10 Influenza Type A (PCR) Influenza Type B (PCR) RSV RNA Qual (PCR) SARS-CoV-2 RNA (RT-PCR) Blood Type Antibody Screen Crossmatch 04/29/24 04/29/24 04/29/24 00:56 05:52 06:40 MCV 89.0 MCH 27.6 MCHC 31.1 RDW 21.8 H Plt Count 264 D MPV 8.2 L Immature Gran % (Auto) 0.5 H Neut % (Auto) 81.2 H Lymph % (Auto) 10.4 L Johnson % (Auto) 7.3 Eos % (Auto) 0.2 Baso % (Auto) 0.4 Lymph # (Auto) 0.9 L Johnson # (Auto) 0.6 Eos # (Auto) 0.0 Baso # (Auto) 0.0 Abs Immat Gran (auto) 0.04 H Absolute Neuts (auto) 6.9 Absolute Nucleated RBC 0.020 H Nucleated RBC % (auto) 0.2 PT INR Anion Gap 9 L Estim Creat Clear Calc 76.0 Estimated GFR > 60 Random Glucose 122 H Lactic Acid Lactic Acid F/U @ 2Hr 1.7 Calcium 7.6 L Magnesium Total Bilirubin AST ALT Alkaline Phosphatase Troponin I High Sens B-Natriuretic Peptide Total Protein Albumin Stool Occult Blood Ethyl Alcohol Influenza Type A (PCR) Influenza Type B (PCR) RSV RNA Qual (PCR) SARS-CoV-2 RNA (RT-PCR) Blood Type A Positive Antibody Screen NEGATIVE Crossmatch See Detail 04/29/24 04/29/24 06:53 07:20 MCV 88.2 MCH 26.9 L MCHC 30.5 L RDW 22.1 H Plt Count 278 MPV 8.5 L Immature Gran % (Auto) 0.6 H Neut % (Auto) 77.2 H Lymph % (Auto) 13.9 L Johnson % (Auto) 7.5 Eos % (Auto) 0.5 Baso % (Auto) 0.3 Lymph # (Auto) 1.2 Johnson # (Auto) 0.7 Eos # (Auto) 0.0 Baso # (Auto) 0.0 Abs Immat Gran (auto) 0.05 H Absolute Neuts (auto) 6.9 Absolute Nucleated RBC 0.000 Nucleated RBC % (auto) 0.0 PT INR Anion Gap Estim Creat Clear Calc Estimated GFR Random Glucose Lactic Acid Lactic Acid F/U @ 2Hr Calcium Magnesium Total Bilirubin AST ALT Alkaline Phosphatase Troponin I High Sens B-Natriuretic Peptide Total Protein Albumin Stool Occult Blood NEGATIVE Ethyl Alcohol Influenza Type A (PCR) Influenza Type B (PCR) RSV RNA Qual (PCR) SARS-CoV-2 RNA (RT-PCR) Blood Type Antibody Screen Crossmatch Assessment and Plan (1) Radiation fibrosis of lung: Status: Acute (2) COPD (chronic obstructive pulmonary disease): Status: Acute Plan 69-year-old male with a past medical history significant for chronic AFib, HFpEF, lung cancer s/p chemo and radiation 2020 (followed by [facility] oncology), abdominal aortic aneurysm, PVD, COPD, and hypotension, who presented to the ED via EMS due to weakness and shortness of breath. Patient also initially hypotensive which has been a chronic issue for him with hospitalizations due to poor p.o. intake for unknown reason, he does not have nausea or vomiting. He was responsive to midodrine, 3 L of IV fluids and albumin. Chest CT significant for pleural thickening suggestive of empyema in the left lower dorsal pleural space as well as left lower lobe pneumonia. Chest x-ray showed small left pleural effusion. BNP unable to be obtained at this time due to laboratory issues however no lower extremity edema and lung imaging as above. empyema of L lung/pneumonia LLL - WBC 9.5, mild tachycardia and tachypnea, lactic acid 2.8--WBC now 8 - tachypnea secondary to empyema and pneumonia, tachycardia and lactic acidemia secondary to dehydration, no sepsis - COVID flu/RSV negative - BNP unable to be obtained due to laboratory issues - chest x-ray with small left pleural effusion, unlikley CHF - chest CT with pleural thickening, empyema left lower dorsal pleural space and left lower lobe pneumonia - patient started on Flagyl and ceftriaxone, continue - pulmonary consult and CT surgery consult - follow CBC and BMP Acute hypotension secondary to acute dehydration - patient prone to hypotensive episodes in the past due to poor p.o. intake with unknown reason - responsive to 3 L NS, midodrine and albumin - monitor BPs - avoid further fluids due to CHF Lactic acidemia - secondary to dehydration, not sepsis Normocytic anemia, chronic with acute drop, associated with tachycardia hemoglobin 7, in light tachycardia and sob, will transfuse 1 unit of rbc History of lung cancer - followed by [facility] Oncology - chest CT not suggestive of any recurrence Chronic AFib - restart Eliquis when anemia resolved, or gib bleeding ruled out -patient and daughter states he has been having hematuria associated with eliquis -get urology consult HFpEF, no acute exacerbation - home meds due to hypotension COPD without acute exacerbation - no wheezing on exam - continue home meds/inhalers Full code VTE prophylaxis: Pneumoboots, restart Eliquis when appropriate Patient with empyema and pneumonia complicated by acute hypotension secondary to acute dehydration, requiring admission for at least 2 midnight stay for IV antibiotics and possible thoracentesis. Quality Stroke Does the patient have a stroke diagnosis?: No VTE Prior VTE?: No VTE Risk Level:: Medical - moderate - high VTE Device Contraindication: N/A - Device Ordered VTE Drug Contraindication: Treatment Not Indicated
--- NOTE | 2024-04-29 14:41 | HO.THORCONS ---
History of Present Illness Consult details Consult date: 04/29/24 Narrative: Patient was a 61-year-old male with a plethora of significant comorbidities and intercurrent medical problems. Among other issues, he presents here with 2 week history of productive cough of yellowish sputum as well as left-sided chest pain (pleuritic) workup including CT scan of the chest demonstrates what appears to be a left lower lung infectious process in the question of early empyema. Patient was a significant smoking history. He also was treated 2 years ago with radiation therapy and chemotherapy for a lung cancer because it was deemed that he was a non operative candidate for this because of his comorbid medical problems. Chart was reviewed and patient evaluated PMFSH Past Medical History Medical History Atrial fibrillation (HFpEF) heart failure with preserved ejection fraction CKD (chronic kidney disease) Lung cancer Abdominal aortic aneurysm PVD (peripheral vascular disease) COPD (chronic obstructive pulmonary disease) Atrial fibrillation Social History Social History Household Members: None Housing: Homeless Do you presently have visiting nurse or other home services: No Alcohol intake: former Comment: rings appropriately Patient Tobacco Use Status: Former Tobacco user Smoked in Last 30 Days: No Use of substances other than those prescribed or required for medical reasons: No Advance Directives: Yes Advance Directives on File: Yes Advance Directives Date on File: 02/27/24 Do you have a plan to hurt others: No Plan service: No Meds Allergies Allergy/AdvReac Type Severity Reaction Status Date / Time No Known Allergies Allergy Verified 04/28/24 21:52 Active Medications: Current Medications Acetaminophen (Acetaminophen 325 Mg Tablet) 975 mg PO Q6H PRN PRN Reason: Pain, Mild 1-3,fever,headache Al Hydroxide/Mg Hydroxide (Magnesium Hydrox/Alum Hydrox 30 Ml Oral.Susp) 30 ml PO Q4H PRN PRN Reason: Dyspepsia Last Admin: 04/29/24 12:49 Dose: 30 ml Albuterol Sulfate (Albuterol Sulfate 90 Mcg 8 Gm Inhaler) 2 puff INHALE RQ4H PRN PRN Reason: Shortness Of Breath Or Wheezing Atorvastatin Calcium (Atorvastatin Calcium 80 Mg Tablet) 80 mg PO DAILY [facility] Last Admin: 04/29/24 10:57 Dose: 80 mg Bupropion HCl (Bupropion Hcl Xl 300 Mg Tab.Er.24h) 300 mg PO DAILY [facility] Calcium Carbonate (Calcium Carbonate 750 Mg Tab.Chew) 750 mg PO Q4H PRN PRN Reason: Heartburn Last Admin: 04/29/24 10:52 Dose: 750 mg Ceftriaxone Sodium (Ceftriaxone Sodium 1 Gm Vial) 1 gm IVPUSH Q24H [facility] Famotidine (Famotidine 20 Mg Tablet) 20 mg PO DAILY [facility] Finasteride (Finasteride 5 Mg Tablet) 5 mg PO DAILY [facility] Fluticasone/Umeclidinium/Vilanterol (Fluticasone/Umeclidinium/Vilanterol 100/62.5/ Blst.W.Dev) 1 puff INHALE RDAILY [facility] Metronidazole (Flagyl) 500 mg in 100 mls @ 100 mls/hr IV Q8H [facility] Last Admin: 04/29/24 12:49 Dose: 100 mls/hr Magnesium Hydroxide (Milk Of Magnesia 30 Ml Oral.Susp) 30 ml PO DAILY PRN PRN Reason: Constipation Melatonin (Melatonin 3 Mg Tablet) 6 mg PO BEDTIME PRN PRN Reason: Insomnia Metoprolol Succinate (Metoprolol Succinate Er 25 Mg Tab.Er.24h) 25 mg PO DAILY [facility]; Protocol Last Admin: 04/29/24 10:57 Dose: 25 mg Ondansetron HCl (Ondansetron Hcl 4 Mg/2 Ml Vial) 4 mg IVPUSH Q8H PRN PRN Reason: Nausea and Vomiting Oxycodone HCl (Oxycodone Hcl Immed Release 5 Mg Tablet) 5 mg PO Q6H PRN PRN Reason: Pain (Scale Score 4-6) Sodium Chloride (0.9 % Sodium Chloride Flush 3 Ml Syringe) 3 ml IVFLUSH QSHIFT [facility] Last Admin: 04/29/24 07:39 Dose: Not Given Tamsulosin HCl (Tamsulosin Hcl 0.4 Mg Capsule) 0.4 mg PO BID [facility] Home Medications ?Medication ?Instructions ?Recorded ?Confirmed ?Last Taken ?Type albuterol sulfate 90 mcg/actuation 2 puff inhalation Q4H PRN 02/18/24 04/29/24 Unknown History aerosol inhaler Shortness Of Breath Or Wheezing apixaban 5 mg tablet (Eliquis) 5 mg PO BID 02/18/24 04/29/24 Unknown History aspirin 81 mg tablet,delayed 81 mg PO DAILY 02/18/24 04/29/24 Unknown History release atorvastatin 80 mg tablet 80 mg PO DAILY 02/18/24 04/29/24 Unknown History bupropion HCl 300 mg 24 hr tablet, 300 mg PO DAILY 02/18/24 04/29/24 Unknown History extended release famotidine 20 mg tablet 20 mg PO DAILY 02/18/24 04/29/24 Unknown History finasteride 5 mg tablet 5 mg PO DAILY 02/18/24 04/29/24 Unknown History fluticasone fur. 100 mcg-umeclid 1 inh inhalation DAILY 02/18/24 04/29/24 Unknown History 62.5 mcg-vilant 25 mcg inhalat.powder (Trelegy Ellipta) oxycodone-acetaminophen 5 mg-325 1 tab PO Q6H PRN Pain (Scale Score 02/18/24 04/29/24 Unknown History mg tablet 4-6) metoprolol succinate 25 mg 25 mg PO DAILY 04/29/24 04/29/24 Unknown History tablet,extended release 24 hr tamsulosin 0.4 mg capsule 0.4 mg PO BID 04/29/24 04/29/24 Unknown History Physical Exam Vital Signs: Vital Signs: Last Vital Signs Temp 97.6 F 04/29/24 12:26 Pulse 99 04/29/24 12:26 Resp 20 04/29/24 12:26 BP 118/88 04/29/24 12:26 Pulse Ox 95 04/29/24 10:57 O2 Del Method Room Air 04/29/24 10:57 Oxygen Flow Rate 1.5 04/28/24 21:47 BMI result Body Mass Index 29.4 Const: Other: Elderly thin frail male. No acute distress. Tolerated his lunch very well Chest: Other: Chest breath sounds bilaterally. Diminished left base. Radiation skin changes to left chest wall Results Labs 04/29/24 07:20 04/29/24 05:52 Labs: Abnormal lab results 04/28/24 04/28/24 04/28/24 Range/Units 22:05 22:34 22:49 RBC 3.33 L (4.60-5.80) X10*6/uL Hgb 9.2 L (14.0-18.0) g/dl Hct 29.4 L (42.0-52.0) % MCH (27.0-33.0) pg MCHC (31.0-36.0) g/dl RDW 21.6 H (11.0-16.0) % MPV 8.5 L (9.4-12.4) fL Immature Gran % (Auto) 0.5 H (0.0-0.4) % Neut % (Auto) 86.7 H (45-73) % Lymph % (Auto) 7.0 L (20-40) % Lymph # (Auto) 0.7 L (1.2-4.9) X10*3/uL Abs Immat Gran (auto) 0.05 H (0.00-0.03) X10*3/uL Absolute Nucleated RBC 0.040 H (0.0-0.012) X10*3/uL Nucleated RBC % (auto) 0.4 H (0.0-0.2) /100WBC PT 14.2 H (10.9-12.4) SEC INR 1.2 H (0.9-1.1) Chloride (96-108) mmol/L Anion Gap 10 L (12-20) Random Glucose (60-115) mg/dL Lactic Acid 2.8 H* (0.5-2.0) mmol/L Calcium 8.0 L D (8.4-10.2) mg/dL B-Natriuretic Peptide 680 H (<100) pg/mL Total Protein 5.8 L (6.5-8.0) g/dL Albumin 2.3 L (3.5-5.0) g/dL Crossmatch 04/29/24 04/29/24 04/29/24 Range/Units 05:52 06:40 07:20 RBC 2.46 L D 2.71 L (4.60-5.80) X10*6/uL Hgb 6.8 L* D 7.3 L (14.0-18.0) g/dl Hct 21.9 L D (42.0-52.0) % MCH (27.0-33.0) pg MCHC (31.0-36.0) g/dl RDW 21.8 H (11.0-16.0) % MPV 8.2 L (9.4-12.4) fL Immature Gran % (Auto) 0.5 H (0.0-0.4) % Neut % (Auto) 81.2 H (45-73) % Lymph % (Auto) 10.4 L (20-40) % Lymph # (Auto) 0.9 L (1.2-4.9) X10*3/uL Abs Immat Gran (auto) 0.04 H (0.00-0.03) X10*3/uL Absolute Nucleated RBC 0.020 H (0.0-0.012) X10*3/uL Nucleated RBC % (auto) (0.0-0.2) /100WBC PT (10.9-12.4) SEC INR (0.9-1.1) Chloride 110 H (96-108) mmol/L Anion Gap 9 L (12-20) Random Glucose 122 H (60-115) mg/dL Lactic Acid (0.5-2.0) mmol/L Calcium 7.6 L (8.4-10.2) mg/dL B-Natriuretic Peptide (<100) pg/mL Total Protein (6.5-8.0) g/dL Albumin (3.5-5.0) g/dL Crossmatch See Detail 04/29/24 04/29/24 Range/Units 07:20 07:20 RBC (4.60-5.80) X10*6/uL Hgb 7.3 L (14.0-18.0) g/dl Hct 23.6 L 23.9 L (42.0-52.0) % MCH 26.9 L (27.0-33.0) pg MCHC 30.5 L (31.0-36.0) g/dl RDW 22.1 H (11.0-16.0) % MPV 8.5 L (9.4-12.4) fL Immature Gran % (Auto) 0.6 H (0.0-0.4) % Neut % (Auto) 77.2 H (45-73) % Lymph % (Auto) 13.9 L (20-40) % Lymph # (Auto) (1.2-4.9) X10*3/uL Abs Immat Gran (auto) 0.05 H (0.00-0.03) X10*3/uL Absolute Nucleated RBC (0.0-0.012) X10*3/uL Nucleated RBC % (auto) (0.0-0.2) /100WBC PT (10.9-12.4) SEC INR (0.9-1.1) Chloride (96-108) mmol/L Anion Gap (12-20) Random Glucose (60-115) mg/dL Lactic Acid (0.5-2.0) mmol/L Calcium (8.4-10.2) mg/dL B-Natriuretic Peptide (<100) pg/mL Total Protein (6.5-8.0) g/dL Albumin (3.5-5.0) g/dL Crossmatch Short CBC 04/28/24 04/29/24 04/29/24 Range/Units 22:05 05:52 07:20 WBC 9.5 8.5 8.9 (4.8-10.8) X10*3/uL Hgb 9.2 L 6.8 L* D 7.3 L (14.0-18.0) g/dl Hct 29.4 L 21.9 L D (42.0-52.0) % Plt Count 376 264 D (160-400) X10*3/uL 04/29/24 04/29/24 Range/Units 07:20 07:20 WBC (4.8-10.8) X10*3/uL Hgb 7.3 L (14.0-18.0) g/dl Hct 23.6 L 23.9 L (42.0-52.0) % Plt Count 278 (160-400) X10*3/uL BMP 04/28/24 04/28/24 04/29/24 22:35 22:49 05:52 Sodium Cancelled 137 140 Potassium Cancelled 3.9 3.4 Chloride Cancelled 106 110 H Carbon Dioxide Cancelled 25 24 BUN Cancelled 12 12 Creatinine Cancelled 1.09 1.00 Calcium Cancelled 8.0 L D 7.6 L Liver Function 04/28/24 04/28/24 Range/Units 22:35 22:49 Total Bilirubin Cancelled 0.8 AST Cancelled 24 ALT Cancelled < 6 Alkaline Phosphatase Cancelled 102 Albumin Cancelled 2.3 L All other labs normal. Assessment and Plan (1) Pneumonia: Status: Acute (2) Empyema lung: Status: Acute Plan At present, patient should be treated with the appropriate antibiotic coverage for his presumed community-acquired pneumonia. Consider Pulmonary consultation as well. Unfortunately, based on the patient's significant medical issues, he would be a very suboptimal surgical candidate should he required decortication. This in combination with the postradiation changes to the hemithorax firs lung cancer would make surgical morbidity/mortality quite significant. Based on Pulmonary consultation, consider IR drainage although there was not much effusion that I saw to drain. Procedures Date of Service Date of Service: 04/29/24
--- NOTE | 2024-04-29 15:18 | PM.CNPUL ---
History of Present Illness History of Present Illness Consult date: 04/29/24 Chief complaint: empyema, pneumonia, hypotension Narrative: 69-year-old gentleman, former 50+ pack-year smoker, with underlying history of left lung cancer status post chemo and XRT, now followed by [facility] oncology admitted on 04/29/[address] chest demonstrated left lower lobe fibrosing/atelectatic process with radiologist's concern for empyema. He does have prior CT chest from February of 2024 showing similar findings. Patient does not have any infectious related symptoms. He states that his respiratory status is at baseline. He is using trilogy and albuterol MDI. Review of Systems Constitutional: Constitutional: Denies daytime sleepiness, Denies excessive sweating, Denies fatigue, Denies fever(s), Denies lethargy, Denies malaise, Denies night sweats, Denies snoring and Denies weight loss Eyes: Eyes: Denies blurry vision and Denies itchy eyes ENT: Denies nasal congestion, Denies post nasal drip, Denies sinus pain, Denies sinus pressure and Denies other ( Thrush) Cardiovascular: Cardiovascular: Denies chest pain, Denies pedal edema, Denies dyspnea, Denies orthopnea and Denies paroxysmal nocturnal dyspnea Respiratory: Respiratory: Denies cough, Denies hemoptysis, Denies excessive phlegm production, Denies dyspnea, Denies snoring and Denies wheezing Gastrointestinal: Gastrointestinal: Denies abdominal pain and Denies heartburn Musculoskeletal: Musculoskeletal: Denies myalgias, Denies arthralgias and Denies joint swelling Integumentary/Breasts: Skin/Breast: Denies rash Neurologic: Denies memory loss and Denies seizure-like activity Psychiatric: Psychiatric: Denies abnormal sleep pattern, Denies anxiety and Denies memory loss Endocrine: Endocrine: Denies excessive sweating, Denies fatigue and Denies heat intolerance Hematologic/Lymphatic: Hematologic/Lymphatic: Denies easy bruising Allergic/Immunologic: Allergic/Immunologic: Denies itchy eyes, Denies seasonal rhinorrhea and Denies wheezing PMFSH Past Medical History Medical History (Updated 04/29/24 @ 15:37 by Sebastian Roland MD) Atrial fibrillation (HFpEF) heart failure with preserved ejection fraction CKD (chronic kidney disease) Lung cancer Abdominal aortic aneurysm PVD (peripheral vascular disease) COPD (chronic obstructive pulmonary disease) Atrial fibrillation Social History Social History Household Members: None Housing: Homeless Do you presently have visiting nurse or other home services: No Alcohol intake: former Comment: rings appropriately Patient Tobacco Use Status: Former Tobacco user Smoked in Last 30 Days: No Use of substances other than those prescribed or required for medical reasons: No Advance Directives: Yes Advance Directives on File: Yes Advance Directives Date on File: 02/27/24 Do you have a plan to hurt others: No Plan service: No Meds Allergies Allergy/AdvReac Type Severity Reaction Status Date / Time No Known Allergies Allergy Verified 04/28/24 21:52 Active Medications: Current Medications Acetaminophen (Acetaminophen 325 Mg Tablet) 975 mg PO Q6H PRN PRN Reason: Pain, Mild 1-3,fever,headache Al Hydroxide/Mg Hydroxide (Magnesium Hydrox/Alum Hydrox 30 Ml Oral.Susp) 30 ml PO Q4H PRN PRN Reason: Dyspepsia Last Admin: 04/29/24 12:49 Dose: 30 ml Albuterol Sulfate (Albuterol Sulfate 90 Mcg 8 Gm Inhaler) 2 puff INHALE RQ4H PRN PRN Reason: Shortness Of Breath Or Wheezing Atorvastatin Calcium (Atorvastatin Calcium 80 Mg Tablet) 80 mg PO DAILY [facility] Last Admin: 04/29/24 10:57 Dose: 80 mg Bupropion HCl (Bupropion Hcl Xl 300 Mg Tab.Er.24h) 300 mg PO DAILY [facility] Calcium Carbonate (Calcium Carbonate 750 Mg Tab.Chew) 750 mg PO Q4H PRN PRN Reason: Heartburn Last Admin: 04/29/24 10:52 Dose: 750 mg Ceftriaxone Sodium (Ceftriaxone Sodium 1 Gm Vial) 1 gm IVPUSH Q24H [facility] Famotidine (Famotidine 20 Mg Tablet) 20 mg PO DAILY [facility] Finasteride (Finasteride 5 Mg Tablet) 5 mg PO DAILY [facility] Fluticasone/Umeclidinium/Vilanterol (Fluticasone/Umeclidinium/Vilanterol 100/62.5/25 Blst.W.Dev) 1 puff INHALE RDAILY [facility] Metronidazole (Flagyl) 500 mg in 100 mls @ 100 mls/hr IV Q8H [facility] Last Admin: 04/29/24 12:49 Dose: 100 mls/hr Magnesium Hydroxide (Milk Of Magnesia 30 Ml Oral.Susp) 30 ml PO DAILY PRN PRN Reason: Constipation Melatonin (Melatonin 3 Mg Tablet) 6 mg PO BEDTIME PRN PRN Reason: Insomnia Metoprolol Succinate (Metoprolol Succinate Er 25 Mg Tab.Er.24h) 25 mg PO DAILY [facility]; Protocol Last Admin: 04/29/24 10:57 Dose: 25 mg Ondansetron HCl (Ondansetron Hcl 4 Mg/2 Ml Vial) 4 mg IVPUSH Q8H PRN PRN Reason: Nausea and Vomiting Oxycodone HCl (Oxycodone Hcl Immed Release 5 Mg Tablet) 5 mg PO Q6H PRN PRN Reason: Pain (Scale Score 4-6) Sodium Chloride (0.9 % Sodium Chloride Flush 3 Ml Syringe) 3 ml IVFLUSH QSHIFT [facility] Last Admin: 04/29/24 07:39 Dose: Not Given Tamsulosin HCl (Tamsulosin Hcl 0.4 Mg Capsule) 0.4 mg PO BID [facility] Home Medications ?Medication ?Instructions ?Recorded ?Confirmed ?Last Taken ?Type albuterol sulfate 90 mcg/actuation 2 puff inhalation Q4H PRN 02/18/24 04/29/24 Unknown History aerosol inhaler Shortness Of Breath Or Wheezing apixaban 5 mg tablet (Eliquis) 5 mg PO BID 02/18/24 04/29/24 Unknown History aspirin 81 mg tablet,delayed 81 mg PO DAILY 02/18/24 04/29/24 Unknown History release atorvastatin 80 mg tablet 80 mg PO DAILY 02/18/24 04/29/24 Unknown History bupropion HCl 300 mg 24 hr tablet, 300 mg PO DAILY 02/18/24 04/29/24 Unknown History extended release famotidine 20 mg tablet 20 mg PO DAILY 02/18/24 04/29/24 Unknown History finasteride 5 mg tablet 5 mg PO DAILY 02/18/24 04/29/24 Unknown History fluticasone fur. 100 mcg-umeclid 1 inh inhalation DAILY 02/18/24 04/29/24 Unknown History 62.5 mcg-vilant 25 mcg inhalat.powder (Trelegy Ellipta) oxycodone-acetaminophen 5 mg-325 1 tab PO Q6H PRN Pain (Scale Score 02/18/24 04/29/24 Unknown History mg tablet 4-6) metoprolol succinate 25 mg 25 mg PO DAILY 04/29/24 04/29/24 Unknown History tablet,extended release 24 hr tamsulosin 0.4 mg capsule 0.4 mg PO BID 04/29/24 04/29/24 Unknown History Physical Exam Vital Signs: Vital Signs: Last Vital Signs Temp 97.6 F 04/29/24 12:26 Pulse 99 04/29/24 12:26 Resp 20 04/29/24 12:26 BP 118/88 04/29/24 12:26 Pulse Ox 95 04/29/24 10:57 O2 Del Method Room Air 04/29/24 10:57 Oxygen Flow Rate 1.5 04/28/24 21:47 BMI result Body Mass Index 29.4 Const: General: no acute distress and alert Nutritional Appearance: not obese Orientation/consciousness: Other orientation findings ( oriented) HEENT: Head: Yes atraumatic Eyes: General: appearance normal, both eyes and all related structures Sclerae: sclerae normal EOM: EOMs intact bilaterally Neck: Neck: Yes supple Lymphatic: no lymphadenopathy noted Resp: Effort & Inspection: normal respiratory effort and no use of accessory muscles Auscultation: clear to auscultation bilaterally Cardio: Rate: regular rate Rhythm: regular rhythm Heart sounds: no gallops, no murmurs and no rubs Skin: General skin exam: other ( warm) Extrem: General: No clubbing, No cyanosis and No edema Results Laboratory Findings 04/29/24 07:20 04/29/24 05:52 ABG, PT/INR, D-dimer: PT/INR, D-dimer PT 14.2 SEC (10.9-12.4) H 04/28/24 22:05 INR 1.2 (0.9-1.1) H 04/28/24 22:05 Abnormal lab findings: Abnormal Labs 04/28/24 04/28/24 04/28/24 22:05 22:34 22:49 RBC 3.33 L Hgb 9.2 L Hct 29.4 L MCH MCHC RDW 21.6 H MPV 8.5 L Immature Gran % (Auto) 0.5 H Neut % (Auto) 86.7 H Lymph % (Auto) 7.0 L Lymph # (Auto) 0.7 L Abs Immat Gran (auto) 0.05 H Absolute Nucleated RBC 0.040 H Nucleated RBC % (auto) 0.4 H PT 14.2 H INR 1.2 H Chloride Anion Gap 10 L Random Glucose Lactic Acid 2.8 H* Calcium 8.0 L D B-Natriuretic Peptide 680 H Total Protein 5.8 L Albumin 2.3 L Crossmatch 04/29/24 04/29/24 04/29/24 05:52 06:40 07:20 RBC 2.46 L D 2.71 L Hgb 6.8 L* D 7.3 L Hct 21.9 L D MCH MCHC RDW 21.8 H MPV 8.2 L Immature Gran % (Auto) 0.5 H Neut % (Auto) 81.2 H Lymph % (Auto) 10.4 L Lymph # (Auto) 0.9 L Abs Immat Gran (auto) 0.04 H Absolute Nucleated RBC 0.020 H Nucleated RBC % (auto) PT INR Chloride 110 H Anion Gap 9 L Random Glucose 122 H Lactic Acid Calcium 7.6 L B-Natriuretic Peptide Total Protein Albumin Crossmatch See Detail 04/29/24 04/29/24 07:20 07:20 RBC Hgb 7.3 L Hct 23.6 L 23.9 L MCH 26.9 L MCHC 30.5 L RDW 22.1 H MPV 8.5 L Immature Gran % (Auto) 0.6 H Neut % (Auto) 77.2 H Lymph % (Auto) 13.9 L Lymph # (Auto) Abs Immat Gran (auto) 0.05 H Absolute Nucleated RBC Nucleated RBC % (auto) PT INR Chloride Anion Gap Random Glucose Lactic Acid Calcium B-Natriuretic Peptide Total Protein Albumin Crossmatch Assessment and Plan (1) COPD (chronic obstructive pulmonary disease): Status: Acute (2) Lung cancer: Status: Acute (3) Radiation fibrosis of lung: Status: Acute Plan Impression: 69-year-old gentleman with underlying COPD and lung cancer status post XRT/chemo, currently under oncology care at [facility] admitted with intravascular volume depletion and CT chest demonstrate at slowly progressive left lower lobe fibrosis. Concern for infectious process at this time. Empyema is unlikely. Recommendation: Continue with outpatient regimen of trilogy and albuterol MDI. Patient to continue to follow-up with his oncologist at [facility]. Procedures Date of Service Date of Service: 04/29/24
--- NOTE | 2024-04-29 16:25 | MHC.CM.PN ---
PT RESIDES IN THE [address] IN [place] HE REPORTS HE IS ABLE TO STAY THERE LONG NEEDED WHILE WAITING FOR PERMANENT HOUSING PT DENIES USE OF DME OR SERVICES BUT REQUESTS A REFERRAL TO [facility] FOR A PLASTIC EYE TECHNICIAN REFERRAL MADE HCP ON FILE PCP: VIVIAN MANDUJANO IMM DELIVERED PTS GOAL IS HOME WITH [facility] REFERRAL HE WILL NEED SHUTTLE TRANSPORT
[2024-04-29 20:22] LABS: Appearance Urine Clear; Color Urine Dark Yellow; Glucose Urine UA Negative (Negative); Leukocyte Esterase Urine Trace (Negative); Nitrite Urine Negative (Negative); Specific Gravity - Urine 1.025 (1.005-1.025); UMIC TRIGGER UACC YES; Urine Blood Large (3+) (Negative); Urine Ketones Negative (Negative); Urine Protein 30 (1+) mg/dL (Neg-Trace)
[2024-04-29 20:30] LABS: Bacteria Urine None Seen (None Seen); RBC Urine >20 /HPF (0-2); Squamous Epithelial Cell Urine 0-2 /HPF (0-2); WBC Urine 0-5 /HPF (0-5)
[2024-04-29 20:42] LABS: Amphetamine Screen Urine Not Detected (Not Detect); Barbiturates, Urine Not Detected (Not Detect); Benzodiazepines Screen Urine Not Detected (Not Detect); Buprenorphine Scr Not Detected (Not Detect); Cannabinoid Screen Urine Not Detected (Not Detect); Cocaine Screen Urine Not Detected (Not Detect); Fentanyl, urine Not Detected (Not Detect); Methadone Screen, Urine Not Detected (Not Detect); Opiate Screen Urine Not Detected (Not Detect); Oxycodone Screen Urine Not Detected (Not Detect); Phencyclidine Screen Urine Not Detected (Not Detect)
--- NOTE | 2024-04-29 22:36 | PC.NURSE ---
pt resting comfortably on stretcher in no apparent distress, call dyer within reach, plan of care ongoing
[2024-04-30] VITALS (8 sets, daily range): BP systolic 108–141; BP diastolic 76–99; PULSE 92–101; RESP 18–22; TEMP 36.1–37; O2SAT 92–96
--- NOTE | 2024-04-30 00:30 | MHC.EDTECH ---
This pct assumed care of Patient at 2300 ,vitals taken ,Patient belonging list done ,Patient was reposition and boosted up in bed ,Patient refused to wear hospital socks ,Patient Call dyer within Pt reach .
[2024-04-30] MEDS: cefTRIAXone sodium 1 GM VIAL IVPUSH (03:58)
[2024-04-30] MEDS: metroNIDAZOLE/NS 500 MG/100 ML PIGGYBACK 100 MG IV ×3 (04:02→18:31)
[2024-04-30 05:12] LABS: MANUAL DIFF FLAG NO
[2024-04-30 05:20] LABS: Basophils Percent Auto 0.4 % (0-2); Eosinophils Absolute Auto 0.1 X10*3/uL (0.0-0.4); Eosinophils Percent Auto 0.6 % (0-4); Hematocrit 30.3 % (42.0-52.0); Hemoglobin 9.5 g/dl (14.0-18.0); Imm Gran Abs Auto 0.07 X10*3/uL (0.00-0.03); Imm Gran Pct Auto 0.7 % (0.0-0.4); Lymphocytes Absolute Auto 0.9 X10*3/uL (1.2-4.9); Lymphocytes Percent Auto 8.1 % (20-40); Mean Corpuscular HGB Conc 31.4 g/dl (31.0-36.0); Mean Corpuscular Volume 89.4 fL (80.0-98.0); Mean Platelet Volume 8.4 fL (9.4-12.4); Monocytes Absolute Auto 0.6 X10*3/uL (0.1-1.2); Monocytes Percent Auto 5.6 % (2-11); NRBC Pct Auto 0.3 /100WBC (0.0-0.2); Neutrophils Absolute Auto 9.1 x10*3/uL (2.0-8.3); Neutrophils Percent Auto 84.6 % (45-73); Platelet Count 340 X10*3/uL (160-400); Red Blood Count 3.39 X10*6/uL (4.60-5.80); Red Cell Distribution Width 20.5 % (11.0-16.0); White Blood Count 10.7 X10*3/uL (4.8-10.8)
[2024-04-30 05:33] LABS: Anion Gap 11 (12-20); Blood Urea Nitrogen 12 mg/dL (9-16); Calcium 8.2 mg/dL (8.4-10.2); Carbon Dioxide 21 mmol/L (22-29); Chloride 111 mmol/L (96-108); Creatinine Clr Calc Pharmacy 82.6; Estimated Glomerular Filt Rate > 60; Glucose Random 111 mg/dL (60-115); Potassium 3.8 mmol/L (3.3-5.1); Sodium 139 mmol/L (135-145)
--- NOTE | 2024-04-30 06:29 | PC.NURSE ---
Jana Oakley notified of patient arrival. Also notified no telemetry monitoring available. At this time pt ok to be off tele.
[2024-04-30] MEDS: Fluticasone/Umeclidinium/Vilanterol 100/62.5/25 BLST.W.DEV 1 PUFF INHALE (07:49)
[2024-04-30] MEDS: buPROPion HCl XL 300 MG TAB.ER.24H PO (08:20)
[2024-04-30] MEDS: Famotidine 20 MG TABLET PO (08:20)
[2024-04-30] MEDS: Atorvastatin Calcium 80 MG TABLET PO (08:20)
[2024-04-30] MEDS: Metoprolol Succinate ER 25 MG TAB.ER.24H PO (08:20)
[2024-04-30] MEDS: Tamsulosin HCL 0.4 MG CAPSULE PO ×2 (08:20→19:17)
[2024-04-30] MEDS: Finasteride 5 MG TABLET PO (08:22)
[2024-04-30] MEDS: Albuterol Sulfate 90 MCG 8 GM INHALER 2 PUFF INHALE ×2 (11:51→16:23)
--- NOTE | 2024-04-30 13:31 | P.PNIM_ITS ---
Subjective Subjective Date of Service: 04/30/24 Interval History: f/u on weakness, sob, cough and empayema Better, no hypoxia Physical Exam 2 Vital Signs: Vital Signs: Last Vital Signs Temp 98.6 F 04/30/24 12:00 Pulse 101 H 04/30/24 12:00 Resp 18 04/30/24 12:00 BP 127/92 H 04/30/24 12:00 Pulse Ox 92 04/30/24 12:00 O2 Del Method Room Air 04/30/24 12:00 Oxygen Flow Rate 1.5 04/28/24 21:47 BMI result Body Mass Index 30.0 General: AO X 3, no acute distress Resp: CTA bilateral CVS: S1,S2,RRR GI: +BS, NT, no distention Skin: No rash Neuro: motor grossly intact Psych: appropriate affect Objective Data Active Medications Acetaminophen (Acetaminophen 325 Mg Tablet) 975 mg PO Q6H PRN PRN Reason: Pain, Mild 1-3,fever,headache Al Hydroxide/Mg Hydroxide (Magnesium Hydrox/Alum Hydrox 30 Ml Oral.Susp) 30 ml PO Q4H PRN PRN Reason: Dyspepsia Last Admin: 04/29/24 12:49 Dose: 30 ml Documented By: LUIS Albuterol Sulfate (Albuterol Sulfate 90 Mcg 8 Gm Inhaler) 2 puff INHALE RQ4H PRN PRN Reason: Shortness Of Breath Or Wheezing Last Admin: 04/30/24 11:51 Dose: 2 puff Documented By: JUAN ANTONIO Atorvastatin Calcium (Atorvastatin Calcium 80 Mg Tablet) 80 mg PO DAILY [facility] Last Admin: 04/30/24 08:20 Dose: 80 mg Documented By: JOYA Bupropion HCl (Bupropion Hcl Xl 300 Mg Tab.Er.24h) 300 mg PO DAILY [facility] Last Admin: 04/30/24 08:20 Dose: 300 mg Documented By: JOYA Calcium Carbonate (Calcium Carbonate 750 Mg Tab.Chew) 750 mg PO Q4H PRN PRN Reason: Heartburn Last Admin: 04/29/24 10:52 Dose: 750 mg Documented By: LUIS Ceftriaxone Sodium (Ceftriaxone Sodium 1 Gm Vial) 1 gm IVPUSH Q24H [facility] Last Admin: 04/30/24 03:58 Dose: 1 gm Documented By: REGINO Famotidine (Famotidine 20 Mg Tablet) 20 mg PO DAILY [facility] Last Admin: 04/30/24 08:20 Dose: 20 mg Documented By: JOYA Finasteride (Finasteride 5 Mg Tablet) 5 mg PO DAILY [facility] Last Admin: 04/30/24 08:22 Dose: 5 mg Documented By: JOYA Fluticasone/Umeclidinium/Vilanterol (Fluticasone/Umeclidinium/Vilanterol 100/62.5/ Blst.W.Dev) 1 puff INHALE RDAILY [facility] Last Admin: 04/30/24 07:49 Dose: 1 puff Documented By: DARYA Metronidazole (Flagyl) 500 mg in 100 mls @ 100 mls/hr IV Q8H [facility] Last Admin: 04/30/24 11:52 Dose: 100 mls/hr Documented By: JUAN ANTONIO Magnesium Hydroxide (Milk Of Magnesia 30 Ml Oral.Susp) 30 ml PO DAILY PRN PRN Reason: Constipation Melatonin (Melatonin 3 Mg Tablet) 6 mg PO BEDTIME PRN PRN Reason: Insomnia Metoprolol Succinate (Metoprolol Succinate Er 25 Mg Tab.Er.24h) 25 mg PO DAILY [facility]; Protocol Last Admin: 04/30/24 08:20 Dose: 25 mg Documented By: JOYA Ondansetron HCl (Ondansetron Hcl 4 Mg/2 Ml Vial) 4 mg IVPUSH Q8H PRN PRN Reason: Nausea and Vomiting Oxycodone HCl (Oxycodone Hcl Immed Release 5 Mg Tablet) 5 mg PO Q6H PRN PRN Reason: Pain (Scale Score 4-6) Sodium Chloride (0.9 % Sodium Chloride Flush 3 Ml Syringe) 3 ml IVFLUSH QSHIFT [facility] Last Admin: 04/30/24 09:05 Dose: Not Given Documented By: JUAN ANTONIO Non-Admin Reason: Previously Administered Tamsulosin HCl (Tamsulosin Hcl 0.4 Mg Capsule) 0.4 mg PO BID [facility] Last Admin: 04/30/24 08:20 Dose: 0.4 mg Documented By: JOYA Labs 04/30/24 04:23 04/30/24 04:23 Labs: Laboratory Results - last 24 hr 04/29/24 04/29/2425 20:10 20:11 04:23 MCV 89.4 MCH 28.0 MCHC 31.4 RDW 20.5 H Plt Count 340 MPV 8.4 L Immature Gran % (Auto) 0.7 H Neut % (Auto) 84.6 H Lymph % (Auto) 8.1 L Williamson % (Auto) 5.6 Eos % (Auto) 0.6 Baso % (Auto) 0.4 Lymph # (Auto) 0.9 L Williamson # (Auto) 0.6 Eos # (Auto) 0.1 Baso # (Auto) 0.0 Abs Immat Gran (auto) 0.07 H Absolute Neuts (auto) 9.1 H Absolute Nucleated RBC 0.030 H Nucleated RBC % (auto) 0.3 H Anion Gap 11 L Estim Creat Clear Calc 82.6 Estimated GFR > 60 Random Glucose 111 Calcium 8.2 L D Urine Color Dark Yellow Urine Appearance Clear Urine pH 6.0 Ur Specific [place] 1.025 Urine Protein 30 (1+) H Urine Glucose (UA) Negative Urine Ketones Negative Urine Blood Large (3+) H Urine Nitrite Negative Ur Leukocyte Esterase Trace H Urine RBC >20 H Urine WBC 0-5 Ur Squamous Epith Cells 0-2 Urine Bacteria None Seen Hyaline Casts 3-5 Urine Opiates Screen Not Detected Ur Buprenorphine Scrn Not Detected Ur Oxycodone Screen Not Detected Urine Methadone Screen Not Detected Urine Fentanyl Screen Not Detected Ur Barbiturates Screen Not Detected Ur Phencyclidine Scrn Not Detected Ur Amphetamines Screen Not Detected U Benzodiazepines Scrn Not Detected Urine Cocaine Screen Not Detected U Marijuana (THC) Screen Not Detected Microbiology Microbiology Results: Microbiology 04/28/24 22:49 Blood Culture - Preliminary Blood - Venous No growth after 24 hours. 04/28/24 22:34 Blood Culture - Preliminary Blood - Venous No growth after 24 hours. Assessment and Plan (1) Radiation fibrosis of lung: Status: Acute (2) COPD (chronic obstructive pulmonary disease): Status: Acute Plan 69-year-old male with a past medical history significant for chronic AFib, HFpEF, lung cancer s/p chemo and radiation 2020 (followed by [facility] oncology), abdominal aortic aneurysm, PVD, COPD, and hypotension, who presented to the ED via EMS due to weakness and shortness of breath. Patient also initially hypotensive which has been a chronic issue for him with hospitalizations due to poor p.o. intake for unknown reason, he does not have nausea or vomiting. He was responsive to midodrine, 3 L of IV fluids and albumin. Chest CT significant for pleural thickening suggestive of empyema in the left lower dorsal pleural space as well as left lower lobe pneumonia. Chest x-ray showed small left pleural effusion. BNP unable to be obtained at this time due to laboratory issues however no lower extremity edema and lung imaging as above. Suspected pulmonary fibrosis from radiation rather than empayema, possible infectous process -seen by CT surgery and pulmonology, no indication for intervention -continue to cover with antibiotics Acute hypotension secondary to acute dehydration--resolved with IVF Lactic acidemia - secondary to dehydration, not sepsis Normocytic anemia, chronic with acute drop, associated with tachycardia hemoglobin 7, in light tachycardia and sob, transfused 1 unit of rbc check urine ocult blood History of lung cancer - followed by [facility] Oncology - chest CT not suggestive of any recurrence Chronic AFib - restart Eliquis when anemia resolved, or gib bleeding ruled out -patient and daughter states he has been having hematuria associated with eliquis -get urology consult HFpEF, no acute exacerbation - home meds due to hypotension COPD without acute exacerbation - no wheezing on exam - continue home meds/inhalers Full code VTE prophylaxis: Pneumoboots, restart Eliquis when appropriate Patient with empyema and pneumonia complicated by acute hypotension secondary to acute dehydration, requiring admission for at least 2 midnight stay for IV antibiotics and possible thoracentesis. anticipated dc tomorrow Quality Stroke Does the patient have a stroke diagnosis?: No VTE Prior VTE?: No VTE Risk Level:: Medical - moderate - high VTE Device Contraindication: N/A - Device Ordered VTE Drug Contraindication: Treatment Not Indicated
[2024-04-30] MEDS: 0.9 % Sodium Chloride Flush 3 ML SYRINGE IVFLUSH ×2 (16:24→19:18)
[2024-05-01] VITALS (11 sets, daily range): BP systolic 91–129; BP diastolic 64–87; PULSE 94–117; RESP 16–20; TEMP 36.1–36.6; O2SAT 93–96
[2024-05-01] MEDS: Simethicone 80 MG TAB.CHEW 160 MG PO (00:58)
[2024-05-01] MEDS: Albuterol/Iprat 2.5/0.5MG 3 ML AMPUL.NEB INHALE (01:08)
[2024-05-01] MEDS: cefTRIAXone sodium 1 GM VIAL IVPUSH (03:00)
[2024-05-01] MEDS: metroNIDAZOLE/NS 500 MG/100 ML PIGGYBACK 100 MG IV ×3 (03:02→20:08)
[2024-05-01 06:39] LABS: MANUAL DIFF FLAG NO
[2024-05-01 06:54] LABS: Basophils Absolute Auto 0.1 X10*3/uL (0.0-0.2); Basophils Percent Auto 0.4 % (0-2); Eosinophils Percent Auto 0.3 % (0-4); Hematocrit 30.3 % (42.0-52.0); Hemoglobin 9.4 g/dl (14.0-18.0); Imm Gran Abs Auto 0.11 X10*3/uL (0.00-0.03); Imm Gran Pct Auto 0.9 % (0.0-0.4); Lymphocytes Absolute Auto 0.7 X10*3/uL (1.2-4.9); Lymphocytes Percent Auto 6.2 % (20-40); Mean Corpuscular Hemoglobin 27.5 pg (27.0-33.0); Mean Corpuscular Volume 88.6 fL (80.0-98.0); Mean Platelet Volume 8.7 fL (9.4-12.4); Monocytes Absolute Auto 0.6 X10*3/uL (0.1-1.2); Monocytes Percent Auto 4.6 % (2-11); NRBC Pct Auto 0.2 /100WBC (0.0-0.2); Neutrophils Absolute Auto 10.4 x10*3/uL (2.0-8.3); Neutrophils Percent Auto 87.6 % (45-73); Platelet Count 347 X10*3/uL (160-400); Red Blood Count 3.42 X10*6/uL (4.60-5.80); Red Cell Distribution Width 20.4 % (11.0-16.0); White Blood Count 11.9 X10*3/uL (4.8-10.8)
[2024-05-01 06:59] LABS: Anion Gap 14 (12-20); Blood Urea Nitrogen 11 mg/dL (9-16); Calcium 8.2 mg/dL (8.4-10.2); Carbon Dioxide 23 mmol/L (22-29); Chloride 108 mmol/L (96-108); Creatinine Clr Calc Pharmacy 93.6; Estimated Glomerular Filt Rate > 60; Glucose Random 85 mg/dL (60-115); Sodium 141 mmol/L (135-145)
[2024-05-01] MEDS: Fluticasone/Umeclidinium/Vilanterol 100/62.5/25 BLST.W.DEV 1 PUFF INHALE (08:19)
[2024-05-01] MEDS: 0.9 % Sodium Chloride Flush 3 ML SYRINGE IVFLUSH ×3 (10:41→20:08)
[2024-05-01] MEDS: Tamsulosin HCL 0.4 MG CAPSULE PO ×2 (10:46→20:08)
[2024-05-01] MEDS: Famotidine 20 MG TABLET PO (10:46)
[2024-05-01] MEDS: buPROPion HCl XL 300 MG TAB.ER.24H PO (10:46)
--- NOTE | 2024-05-01 10:46 | P.PNIM_ITS ---
Subjective Subjective Date of Service: 05/01/24 Interval History: c/o still sob, no hypoxia and refusing to participate in ED Physical Exam 2 Vital Signs: Vital Signs: Last Vital Signs Temp 96.9 F 05/01/24 08:01 Pulse 113 H 05/01/24 08:20 Resp 18 05/01/24 08:20 BP 129/86 05/01/24 08:01 Pulse Ox 94 05/01/24 08:01 O2 Del Method Room Air 05/01/24 08:01 Oxygen Flow Rate 1.5 04/28/24 21:47 BMI result Body Mass Index 30.0 General: AO X 3, no acute distress Resp: CTA bilateral CVS: S1,S2,RRR GI: +BS, NT, no distention Skin: No rash Neuro: motor grossly intact Psych: appropriate affect Objective Data Active Medications Acetaminophen (Acetaminophen 325 Mg Tablet) 975 mg PO Q6H PRN PRN Reason: Pain, Mild 1-3,fever,headache Al Hydroxide/Mg Hydroxide (Magnesium Hydrox/Alum Hydrox 30 Ml Oral.Susp) 30 ml PO Q4H PRN PRN Reason: Dyspepsia Last Admin: 04/29/24 12:49 Dose: 30 ml Documented By: LUIS Albuterol Sulfate (Albuterol Sulfate 90 Mcg 8 Gm Inhaler) 2 puff INHALE RQ4H PRN PRN Reason: Shortness Of Breath Or Wheezing Last Admin: 04/30/24 16:23 Dose: 2 puff Documented By: JUAN ANTONIO Albuterol/Ipratropium (Albuterol/Iprat 2.5/0.5mg 3 Ml Ampul.Neb) 3 ml INHALE Q4H PRN PRN Reason: Wheezing Last Admin: 05/01/24 01:08 Dose: 3 ml Documented By: ASHVIN Atorvastatin Calcium (Atorvastatin Calcium 80 Mg Tablet) 80 mg PO DAILY [facility] Last Admin: 04/30/24 08:20 Dose: 80 mg Documented By: JOYA Bupropion HCl (Bupropion Hcl Xl 300 Mg Tab.Er.24h) 300 mg PO DAILY [facility] Last Admin: 04/30/24 08:20 Dose: 300 mg Documented By: JOYA Calcium Carbonate (Calcium Carbonate 750 Mg Tab.Chew) 750 mg PO Q4H PRN PRN Reason: Heartburn Last Admin: 04/29/24 10:52 Dose: 750 mg Documented By: LUIS Ceftriaxone Sodium (Ceftriaxone Sodium 1 Gm Vial) 1 gm IVPUSH Q24H [facility] Last Admin: 05/01/24 03:00 Dose: 1 gm Documented By: ELVIN Famotidine (Famotidine 20 Mg Tablet) 20 mg PO DAILY [facility] Last Admin: 04/30/24 08:20 Dose: 20 mg Documented By: JOYA Finasteride (Finasteride 5 Mg Tablet) 5 mg PO DAILY [facility] Last Admin: 04/30/24 08:22 Dose: 5 mg Documented By: JOYA Fluticasone/Umeclidinium/Vilanterol (Fluticasone/Umeclidinium/Vilanterol 100/62.5/ Blst.W.Dev) 1 puff INHALE RDAILY [facility] Last Admin: 05/01/24 08:19 Dose: 1 puff Documented By: DARYA Metronidazole (Flagyl) 500 mg in 100 mls @ 100 mls/hr IV Q8H [facility] Last Infusion: 05/01/24 04:15 Dose: Infused Documented By: ELVIN Magnesium Hydroxide (Milk Of Magnesia 30 Ml Oral.Susp) 30 ml PO DAILY PRN PRN Reason: Constipation Melatonin (Melatonin 3 Mg Tablet) 6 mg PO BEDTIME PRN PRN Reason: Insomnia Metoprolol Succinate (Metoprolol Succinate Er 25 Mg Tab.Er.24h) 25 mg PO DAILY [facility]; Protocol Last Admin: 04/30/24 08:20 Dose: 25 mg Documented By: JOYA Ondansetron HCl (Ondansetron Hcl 4 Mg/2 Ml Vial) 4 mg IVPUSH Q8H PRN PRN Reason: Nausea and Vomiting Oxycodone HCl (Oxycodone Hcl Immed Release 5 Mg Tablet) 5 mg PO Q6H PRN PRN Reason: Pain (Scale Score 4-6) Sodium Chloride (0.9 % Sodium Chloride Flush 3 Ml Syringe) 3 ml IVFLUSH QSHIFT [facility] Last Admin: 04/30/24 19:18 Dose: 3 ml Documented By: ELVIN Tamsulosin HCl (Tamsulosin Hcl 0.4 Mg Capsule) 0.4 mg PO BID [facility] Last Admin: 04/30/24 19:17 Dose: 0.4 mg Documented By: ELVIN Labs 05/01/24 05:03 05/01/24 05:03 Labs: Laboratory Results - last 24 hr 05/01/24 05:03 MCV 88.6 MCH 27.5 MCHC 31.0 RDW 20.4 H Plt Count 347 MPV 8.7 L Immature Gran % (Auto) 0.9 H Neut % (Auto) 87.6 H Lymph % (Auto) 6.2 L [place] % (Auto) 4.6 Eos % (Auto) 0.3 Baso % (Auto) 0.4 Lymph # (Auto) 0.7 L [place] # (Auto) 0.6 Eos # (Auto) 0.0 Baso # (Auto) 0.1 Abs Immat Gran (auto) 0.11 H Absolute Neuts (auto) 10.4 H Absolute Nucleated RBC 0.020 H Nucleated RBC % (auto) 0.2 Anion Gap 14 Estim Creat Clear Calc 93.6 Estimated GFR > 60 Random Glucose 85 Calcium 8.2 L Microbiology Microbiology Results: Microbiology 04/28/24 22:49 Blood Culture - Preliminary Blood - Venous No growth after 48 hours. 04/28/24 22:34 Blood Culture - Preliminary Blood - Venous No growth after 48 hours. Assessment and Plan (1) Radiation fibrosis of lung: Status: Acute (2) COPD (chronic obstructive pulmonary disease): Status: Acute Plan 69-year-old male with a past medical history significant for chronic AFib, HFpEF, lung cancer s/p chemo and radiation 2020 (followed by [facility] oncology), abdominal aortic aneurysm, PVD, COPD, and hypotension, who presented to the ED via EMS due to weakness and shortness of breath. Patient also initially hypotensive which has been a chronic issue for him with hospitalizations due to poor p.o. intake for unknown reason, he does not have nausea or vomiting. He was responsive to midodrine, 3 L of IV fluids and albumin. Chest CT significant for pleural thickening suggestive of empyema in the left lower dorsal pleural space as well as left lower lobe pneumonia. Chest x-ray showed small left pleural effusion. BNP unable to be obtained at this time due to laboratory issues however no lower extremity edema and lung imaging as above. Suspected pulmonary fibrosis from radiation rather than empayema, possible infectous process -seen by CT surgery and pulmonology, no indication for intervention -continue to cover with antibiotics Acute hypotension secondary to acute dehydration--resolved with IVF Lactic acidemia - secondary to dehydration, not sepsis Chronic anemia with acute drop following day of admission, possible dilutional effect no bleeding noted, H/H has been stable since 1 unit of rbc Normocytic anemia, chronic with acute drop, associated with tachycardia hemoglobin 7, in light tachycardia and sob, transfused 1 unit of rbc check urine ocult blood History of lung cancer - followed by [facility] Oncology - chest CT not suggestive of any recurrence Chronic AFib, HR on high side, will increase Toproll - restart Eliquis when anemia resolved, or gib bleeding ruled out -patient and daughter states he has been having hematuria associated with eliquis -get urology consult HFpEF, no acute exacerbation - home meds due to hypotension COPD without acute exacerbation - no wheezing on exam - continue home meds/inhalers Full code VTE prophylaxis: Pneumoboots, restart Eliquis when appropriate Patient with empyema and pneumonia complicated by acute hypotension secondary to acute dehydration, requiring admission for at least 2 midnight stay for IV antibiotics and possible thoracentesis. PT eval Quality Stroke Does the patient have a stroke diagnosis?: No VTE Prior VTE?: No VTE Risk Level:: Medical - moderate - high VTE Device Contraindication: N/A - Device Ordered VTE Drug Contraindication: Treatment Not Indicated
[2024-05-01] MEDS: Atorvastatin Calcium 80 MG TABLET PO (10:47)
[2024-05-01] MEDS: Finasteride 5 MG TABLET PO (10:47)
[2024-05-01] MEDS: Metoprolol Succinate ER 25 MG TAB.ER.24H PO ×2 (10:53→16:01)
--- NOTE | 2024-05-01 14:35 | MHC.CM.PN ---
Per MD rounds patient is not ready to discharge. Patient continues with pneumonia requiring IV antibiotics and possible thoracentesis. DP Return to [facility] 6 via shuttle.
[2024-05-02] VITALS (8 sets, daily range): BP systolic 90–137; BP diastolic 68–89; PULSE 82–114; RESP 16–20; TEMP 36–36.3; O2SAT 92–96
[2024-05-02] MEDS: Albuterol/Iprat 2.5/0.5MG 3 ML AMPUL.NEB INHALE (01:40)
[2024-05-02] MEDS: cefTRIAXone sodium 1 GM VIAL IVPUSH (02:40)
[2024-05-02] MEDS: metroNIDAZOLE/NS 500 MG/100 ML PIGGYBACK 100 MG IV ×3 (02:40→20:40)
--- NOTE | 2024-05-02 07:07 | P.CDIM_ITS ---
PROVIDER RESPONSE TEXT: To clarify, the appropriate diagnosis supported by the clinical indicators: Acute QUERY TEXT: PHYSICIAN'S DOCUMENTATION REQUEST Date of Query: 05/01/2024 10:59 AM EST Patient Name: Alan Banerjee Admit Date: 04/29/2024 Dear Adebayo Gilliam MD, A review of the medical record indicates additional documentation may be needed. Please review below and update the documentation accordingly. Clinical Indicators: lactic acidemia secondary to dehydration LA 2.8 Clarify which of the following accurately represents the acuity of the Lactic acidemia. Possible options might include: Acute Acute on chronic Compensated Chronic stable condition Remission Other (explain) Clinically unable to determine (explain) Thank you, Dahlia Israel RN Use of terms such as suspected, likely, concern for, or probable (associated with a specific diagnosi s that is being evaluated, monitored, or treated as if it exists) are acceptable and can be coded in the inpatient se tting, when documented at the time of discharge. Please use your independent medical judgment in providing your response. THIS QUERY IS PART OF THE PERMANENT MEDICAL RECORD
[2024-05-02] MEDS: Fluticasone/Umeclidinium/Vilanterol 100/62.5/25 BLST.W.DEV 1 PUFF INHALE (08:31)
[2024-05-02] MEDS: Atorvastatin Calcium 80 MG TABLET PO (08:32)
[2024-05-02] MEDS: Metoprolol Succinate ER 25 MG TAB.ER.24H PO (08:32)
[2024-05-02] MEDS: Tamsulosin HCL 0.4 MG CAPSULE PO ×2 (08:33→20:40)
[2024-05-02] MEDS: Famotidine 20 MG TABLET PO (08:33)
[2024-05-02] MEDS: Finasteride 5 MG TABLET PO (08:33)
[2024-05-02] MEDS: buPROPion HCl XL 300 MG TAB.ER.24H PO (08:33)
[2024-05-02] MEDS: 0.9 % Sodium Chloride Flush 3 ML SYRINGE IVFLUSH ×3 (08:34→20:40)
[2024-05-02] MEDS: Calcium Carbonate 750 MG TAB.CHEW PO (10:43)
--- NOTE | 2024-05-02 18:09 | HO.PM.IMPN ---
Subjective Subjective Date of Service: 05/02/24 Interval History: Reports feeling better Physical Exam Vital Signs: Vital Signs: Last Vital Signs Temp 96.8 F 05/02/24 15:32 Pulse 98 05/02/24 15:32 Resp 16 05/02/24 15:32 BP 90/68 05/02/24 15:32 Pulse Ox 96 05/02/24 15:32 O2 Del Method Room Air 05/02/24 15:32 Oxygen Flow Rate 1.5 04/28/24 21:47 BMI result Body Mass Index 30.0 General: AO X 3, no acute distress Resp: CTA bilateral CVS: S1,S2,RRR GI: +BS, NT, no distention Skin: No rash Neuro: motor grossly intact Psych: appropriate affect Const: Other: .ex Objective Data Active Medications Acetaminophen (Acetaminophen 325 Mg Tablet) 975 mg PO Q6H PRN PRN Reason: Pain, Mild 1-3,fever,headache Al Hydroxide/Mg Hydroxide (Magnesium Hydrox/Alum Hydrox 30 Ml Oral.Susp) 30 ml PO Q4H PRN PRN Reason: Dyspepsia Last Admin: 04/29/24 12:49 Dose: 30 ml Documented By: LUIS Albuterol Sulfate (Albuterol Sulfate 90 Mcg 8 Gm Inhaler) 2 puff INHALE RQ4H PRN PRN Reason: Shortness Of Breath Or Wheezing Last Admin: 04/30/24 16:23 Dose: 2 puff Documented By: JUAN ANTONIO Albuterol/Ipratropium (Albuterol/Iprat 2.5/0.5mg 3 Ml Ampul.Neb) 3 ml INHALE Q4H PRN PRN Reason: Wheezing Last Admin: 05/02/24 01:40 Dose: 3 ml Documented By: ADOLPH Atorvastatin Calcium (Atorvastatin Calcium 80 Mg Tablet) 80 mg PO DAILY [facility] Last Admin: 05/02/24 08:32 Dose: 80 mg Documented By: JAYDON Bupropion HCl (Bupropion Hcl Xl 300 Mg Tab.Er.24h) 300 mg PO DAILY [facility] Last Admin: 05/02/24 08:33 Dose: 300 mg Documented By: JAYDON Calcium Carbonate (Calcium Carbonate 750 Mg Tab.Chew) 750 mg PO Q4H PRN PRN Reason: Heartburn Last Admin: 05/02/24 10:43 Dose: 750 mg Documented By: JAYDON Ceftriaxone Sodium (Ceftriaxone Sodium 1 Gm Vial) 1 gm IVPUSH Q24H [facility] Last Admin: 05/02/24 02:40 Dose: 1 gm Documented By: CRISTELA Famotidine (Famotidine 20 Mg Tablet) 20 mg PO DAILY [facility] Last Admin: 05/02/24 08:33 Dose: 20 mg Documented By: JAYDON Finasteride (Finasteride 5 Mg Tablet) 5 mg PO DAILY [facility] Last Admin: 05/02/24 08:33 Dose: 5 mg Documented By: JAYDON Fluticasone/Umeclidinium/Vilanterol (Fluticasone/Umeclidinium/Vilanterol 100/62.09/08 Blst.W.Dev) 1 puff INHALE RDAILY [facility] Last Admin: 05/02/24 08:31 Dose: 1 puff Documented By: TABATHA Metronidazole (Flagyl) 500 mg in 100 mls @ 100 mls/hr IV Q8H [facility] Last Infusion: 05/02/24 11:44 Dose: Infused Documented By: JAYDON Magnesium Hydroxide (Milk Of Magnesia 30 Ml Oral.Susp) 30 ml PO DAILY PRN PRN Reason: Constipation Melatonin (Melatonin 3 Mg Tablet) 6 mg PO BEDTIME PRN PRN Reason: Insomnia Metoprolol Succinate (Metoprolol Succinate Er 25 Mg Tab.Er.24h) 25 mg PO DAILY [facility]; Protocol Last Admin: 05/02/24 08:32 Dose: 25 mg Documented By: JAYDON Ondansetron HCl (Ondansetron Hcl 4 Mg/2 Ml Vial) 4 mg IVPUSH Q8H PRN PRN Reason: Nausea and Vomiting Oxycodone HCl (Oxycodone Hcl Immed Release 5 Mg Tablet) 5 mg PO Q6H PRN PRN Reason: Pain (Scale Score 4-6) Sodium Chloride (0.9 % Sodium Chloride Flush 3 Ml Syringe) 3 ml IVFLUSH QSHIFT [facility] Last Admin: 05/02/24 15:08 Dose: 3 ml Documented By: JAYDON Tamsulosin HCl (Tamsulosin Hcl 0.4 Mg Capsule) 0.4 mg PO BID [facility] Last Admin: 05/02/24 08:33 Dose: 0.4 mg Documented By: JAYDON Labs 05/01/24 05:03 05/01/24 05:03 Assessment and Plan (1) Radiation fibrosis of lung: Status: Acute (2) COPD (chronic obstructive pulmonary disease): Status: Acute Plan 69-year-old male with a past medical history significant for chronic AFib, HFpEF, lung cancer s/p chemo and radiation 2020 (followed by [facility] oncology), abdominal aortic aneurysm, PVD, COPD, and hypotension, who presented to the ED via EMS due to weakness and shortness of breath. Patient also initially hypotensive which has been a chronic issue for him with hospitalizations due to poor p.o. intake for unknown reason, he does not have nausea or vomiting. He was responsive to midodrine, 3 L of IV fluids and albumin. Chest CT significant for pleural thickening suggestive of empyema in the left lower dorsal pleural space as well as left lower lobe pneumonia. Chest x-ray showed small left pleural effusion. BNP unable to be obtained at this time due to laboratory issues however no lower extremity edema and lung imaging as above. Suspected pulmonary fibrosis from radiation rather than empayema, possible infectous process -seen by CT surgery and pulmonology, no indication for intervention -continue to cover with antibiotics, change to po soon Acute hypotension secondary to acute dehydration--resolved with IVF AcuteLactic acidemia - secondary to dehydration, not sepsis Chronic anemia with acute drop following day of admission, possible dilutional effect no bleeding noted, H/H has been stable since 1 unit of rbc Normocytic anemia, chronic with acute drop, associated with tachycardia hemoglobin 7, in light tachycardia and sob, transfused 1 unit of rbc check urine ocult blood History of lung cancer - followed by [facility] Oncology - chest CT not suggestive of any recurrence Chronic AFib, HR on high side, will increase Toproll - restart Eliquis when anemia resolved, or gib bleeding ruled out -patient and daughter states he has been having hematuria associated with eliquis -get urology consult HFpEF, no acute exacerbation - home meds due to hypotension COPD without acute exacerbation - no wheezing on exam - continue home meds/inhalers Full code VTE prophylaxis: Pneumoboots, restart Eliquis when appropriate Patient with empyema and pneumonia complicated by acute hypotension secondary to acute dehydration, requiring admission for at least 2 midnight stay for IV antibiotics and possible thoracentesis. PT eval recommend STR Quality Stroke Does the patient have a stroke diagnosis?: No VTE Prior VTE?: No VTE Risk Level:: Medical - moderate - high VTE Device Contraindication: N/A - Device Ordered VTE Drug Contraindication: Treatment Not Indicated
[2024-05-03] VITALS (8 sets, daily range): BP systolic 92–122; BP diastolic 59–81; PULSE 85–115; RESP 12–18; TEMP 36–36.7; O2SAT 92–96
[2024-05-03] MEDS: cefTRIAXone sodium 1 GM VIAL IVPUSH (02:51)
[2024-05-03] MEDS: metroNIDAZOLE/NS 500 MG/100 ML PIGGYBACK 100 MG IV ×3 (02:56→19:37)
[2024-05-03] MEDS: Fluticasone/Umeclidinium/Vilanterol 100/62.5/25 BLST.W.DEV 1 PUFF INHALE (07:41)
--- NOTE | 2024-05-03 08:51 | P.PNIM_ITS ---
Subjective Subjective Date of Service: 05/03/24 Interval History: He's reporting feeling better, PT is recommending STR but he's not sure if he want to go Physical Exam 2 Vital Signs: Vital Signs: Last Vital Signs Temp 97.0 F 05/03/24 08:11 Pulse 110 H 05/03/24 08:11 Resp 18 05/03/24 08:11 BP 109/69 05/03/24 08:11 Pulse Ox 93 05/03/24 08:11 O2 Del Method Room Air 05/03/24 08:11 Oxygen Flow Rate 1.5 04/28/24 21:47 BMI result Body Mass Index 30.0 General: AO X 3, no acute distress Resp: CTA bilateral CVS: S1,S2,RRR GI: +BS, NT, no distention Skin: No rash Neuro: motor grossly intact Psych: appropriate affect Const: Other: .ex Objective Data Active Medications Acetaminophen (Acetaminophen 325 Mg Tablet) 975 mg PO Q6H PRN PRN Reason: Pain, Mild 1-3,fever,headache Al Hydroxide/Mg Hydroxide (Magnesium Hydrox/Alum Hydrox 30 Ml Oral.Susp) 30 ml PO Q4H PRN PRN Reason: Dyspepsia Last Admin: 04/29/24 12:49 Dose: 30 ml Documented By: LUIS Albuterol Sulfate (Albuterol Sulfate 90 Mcg 8 Gm Inhaler) 2 puff INHALE RQ4H PRN PRN Reason: Shortness Of Breath Or Wheezing Last Admin: 04/30/24 16:23 Dose: 2 puff Documented By: JUAN ANTONIO Albuterol/Ipratropium (Albuterol/Iprat 2.5/0.5mg 3 Ml Ampul.Neb) 3 ml INHALE Q4H PRN PRN Reason: Wheezing Last Admin: 05/02/24 01:40 Dose: 3 ml Documented By: ADOLPH Atorvastatin Calcium (Atorvastatin Calcium 80 Mg Tablet) 80 mg PO DAILY [facility] Last Admin: 05/02/24 08:32 Dose: 80 mg Documented By: JAYDON Bupropion HCl (Bupropion Hcl Xl 300 Mg Tab.Er.24h) 300 mg PO DAILY [facility] Last Admin: 05/02/24 08:33 Dose: 300 mg Documented By: JAYDON Calcium Carbonate (Calcium Carbonate 750 Mg Tab.Chew) 750 mg PO Q4H PRN PRN Reason: Heartburn Last Admin: 05/02/24 10:43 Dose: 750 mg Documented By: JAYDON Ceftriaxone Sodium (Ceftriaxone Sodium 1 Gm Vial) 1 gm IVPUSH Q24H [facility] Last Admin: 05/03/24 02:51 Dose: 1 gm Documented By: MILEY Famotidine (Famotidine 20 Mg Tablet) 20 mg PO DAILY [facility] Last Admin: 05/02/24 08:33 Dose: 20 mg Documented By: JAYDON Finasteride (Finasteride 5 Mg Tablet) 5 mg PO DAILY [facility] Last Admin: 05/02/24 08:33 Dose: 5 mg Documented By: JAYDON Fluticasone/Umeclidinium/Vilanterol (Fluticasone/Umeclidinium/Vilanterol 100/62.09/08 Blst.W.Dev) 1 puff INHALE RDAILY [facility] Last Admin: 05/03/24 07:41 Dose: 1 puff Documented By: DARYA Metronidazole (Flagyl) 500 mg in 100 mls @ 100 mls/hr IV Q8H [facility] Last Infusion: 05/03/24 03:56 Dose: Infused Documented By: MILEY Magnesium Hydroxide (Milk Of Magnesia 30 Ml Oral.Susp) 30 ml PO DAILY PRN PRN Reason: Constipation Melatonin (Melatonin 3 Mg Tablet) 6 mg PO BEDTIME PRN PRN Reason: Insomnia Metoprolol Succinate (Metoprolol Succinate Er 25 Mg Tab.Er.24h) 25 mg PO DAILY [facility]; Protocol Last Admin: 05/02/24 08:32 Dose: 25 mg Documented By: JAYDON Ondansetron HCl (Ondansetron Hcl 4 Mg/2 Ml Vial) 4 mg IVPUSH Q8H PRN PRN Reason: Nausea and Vomiting Oxycodone HCl (Oxycodone Hcl Immed Release 5 Mg Tablet) 5 mg PO Q6H PRN PRN Reason: Pain (Scale Score 4-6) Sodium Chloride (0.9 % Sodium Chloride Flush 3 Ml Syringe) 3 ml IVFLUSH QSHIFT [facility] Last Admin: 05/02/24 20:40 Dose: 3 ml Documented By: MILEY Tamsulosin HCl (Tamsulosin Hcl 0.4 Mg Capsule) 0.4 mg PO BID [facility] Last Admin: 05/02/24 20:40 Dose: 0.4 mg Documented By: MILEY Labs 05/01/24 05:03 05/01/24 05:03 Assessment and Plan (1) Radiation fibrosis of lung: Status: Acute (2) COPD (chronic obstructive pulmonary disease): Status: Acute Plan 69-year-old male with a past medical history significant for chronic AFib, HFpEF, lung cancer s/p chemo and radiation 2020 (followed by [facility] oncology), abdominal aortic aneurysm, PVD, COPD, and hypotension, who presented to the ED via EMS due to weakness and shortness of breath. Patient also initially hypotensive which has been a chronic issue for him with hospitalizations due to poor p.o. intake for unknown reason, he does not have nausea or vomiting. He was responsive to midodrine, 3 L of IV fluids and albumin. Chest CT significant for pleural thickening suggestive of empyema in the left lower dorsal pleural space as well as left lower lobe pneumonia. Chest x-ray showed small left pleural effusion. BNP unable to be obtained at this time due to laboratory issues however no lower extremity edema and lung imaging as above. Suspected pulmonary fibrosis from radiation rather than empayema, possible infectous process -seen by CT surgery and pulmonology, no indication for intervention -continue to cover with antibiotics, change to po soon Acute hypotension secondary to acute dehydration--resolved with IVF AcuteLactic acidemia - secondary to dehydration, not sepsis Chronic anemia with acute drop following day of admission, possible dilutional effect no bleeding noted, H/H has been stable since 1 unit of rbc Normocytic anemia, chronic with acute drop, associated with tachycardia hemoglobin 7, in light tachycardia and sob, transfused 1 unit of rbc check urine ocult blood, repeat h/h today History of lung cancer - followed by [facility] Oncology - chest CT not suggestive of any recurrence Chronic AFib, HR on high side, will increase Toproll - restart Eliquis when anemia resolved, or gib bleeding ruled out -patient and daughter states he has been having hematuria associated with eliquis -get urology consult HFpEF, no acute exacerbation - home meds due to hypotension COPD without acute exacerbation - no wheezing on exam - continue home meds/inhalers Full code VTE prophylaxis: Pneumoboots, restart Eliquis when appropriate Patient with empyema and pneumonia complicated by acute hypotension secondary to acute dehydration, requiring admission for at least 2 midnight stay for IV antibiotics and possible thoracentesis. PT eval recommend STR, he is not sure if he wants to go Quality Stroke Does the patient have a stroke diagnosis?: No VTE Prior VTE?: No VTE Risk Level:: Medical - moderate - high VTE Device Contraindication: N/A - Device Ordered VTE Drug Contraindication: Treatment Not Indicated
[2024-05-03] MEDS: Atorvastatin Calcium 80 MG TABLET PO (09:20)
[2024-05-03] MEDS: Metoprolol Succinate ER 25 MG TAB.ER.24H PO (09:20)
[2024-05-03] MEDS: Tamsulosin HCL 0.4 MG CAPSULE PO ×2 (09:21→19:37)
[2024-05-03] MEDS: buPROPion HCl XL 300 MG TAB.ER.24H PO (09:21)
[2024-05-03] MEDS: Famotidine 20 MG TABLET PO (09:21)
[2024-05-03] MEDS: 0.9 % Sodium Chloride Flush 3 ML SYRINGE IVFLUSH ×3 (09:21→19:37)
[2024-05-03] MEDS: Finasteride 5 MG TABLET PO (09:21)
[2024-05-03 09:30] LABS: Hematocrit 30.3 % (42.0-52.0); Hemoglobin 9.6 g/dl (14.0-18.0); Mean Corpuscular HGB Conc 31.7 g/dl (31.0-36.0); Mean Corpuscular Hemoglobin 27.7 pg (27.0-33.0); Mean Corpuscular Volume 87.6 fL (80.0-98.0); Mean Platelet Volume 8.4 fL (9.4-12.4); NRBC Pct Auto 0.4 /100WBC (0.0-0.2); Platelet Count 362 X10*3/uL (160-400); Red Blood Count 3.46 X10*6/uL (4.60-5.80); Red Cell Distribution Width 20.6 % (11.0-16.0); White Blood Count 11.4 X10*3/uL (4.8-10.8)
[2024-05-03 09:42] LABS: Anion Gap 11 (12-20); Blood Urea Nitrogen 14 mg/dL (9-16); Calcium 8.2 mg/dL (8.4-10.2); Carbon Dioxide 24 mmol/L (22-29); Chloride 109 mmol/L (96-108); Creatinine Clr Calc Pharmacy 88.2; Estimated Glomerular Filt Rate > 60; Glucose Random 71 mg/dL (60-115); Potassium 3.6 mmol/L (3.3-5.1); Sodium 140 mmol/L (135-145)
--- NOTE | 2024-05-03 10:29 | MHC.CM.PN ---
Addendum entered by Yareli Cerda 05/03/24 13:54: PT INFORMED [facility] WAS OFFERING A BED HOWEVER HE WOULD HAVE TO SHARE A ROOM PT STATES HE WOULD PREFER TO GO HOME HE STATES HE KNOWS HE HAS TO MOVE AROUND MORE AND DOES NOT FEEL HE NEEDS VNA PT STATES HE HAS A ROLLATOR AND IS ABLE TO TRANSFER ON HIS OWN HIS NEIGHBOR, DENISA, HELPS HIM DAILY HE STATES DENISA WILL BE BACK FROM [place] TOMORROW AND ASKS THAT HE DC AT THAT TIME PT WILL TRANSPORT VIA BLS Original Note: STR BEING RECOMMENDED, PT AGREEABLE IF THERE IS NO COPAY, HOWEVER DURING HIS LAST ADMISSION IN FEBRUARY OF 2024, HIS INSURANCE INDICATED THERE WOULD BE A $150/DAY COPAY. REFERRAL EXPANDED, CM AWAITING BED OFFER SO THAT CURRENT COVERAGE CAN BE CONFIRMED
[2024-05-04] VITALS (8 sets, daily range): BP systolic 92–118; BP diastolic 67–84; PULSE 87–115; RESP 16–18; TEMP 35.9–36.6; O2SAT 92–96
[2024-05-04] MEDS: cefTRIAXone sodium 1 GM VIAL IVPUSH (02:25)
[2024-05-04] MEDS: metroNIDAZOLE/NS 500 MG/100 ML PIGGYBACK 100 MG IV ×3 (02:33→19:13)
[2024-05-04] MEDS: Fluticasone/Umeclidinium/Vilanterol 100/62.5/25 BLST.W.DEV 1 PUFF INHALE (08:10)
[2024-05-04] MEDS: 0.9 % Sodium Chloride Flush 3 ML SYRINGE IVFLUSH ×3 (09:56→20:18)
[2024-05-04] MEDS: Finasteride 5 MG TABLET PO (09:58)
[2024-05-04] MEDS: buPROPion HCl XL 300 MG TAB.ER.24H PO (09:58)
[2024-05-04] MEDS: Famotidine 20 MG TABLET PO (09:58)
[2024-05-04] MEDS: Atorvastatin Calcium 80 MG TABLET PO (09:58)
[2024-05-04] MEDS: Metoprolol Succinate ER 25 MG TAB.ER.24H PO (09:58)
[2024-05-04] MEDS: Tamsulosin HCL 0.4 MG CAPSULE PO ×2 (09:58→20:18)
--- NOTE | 2024-05-04 10:37 | HO.PM.IMPN ---
Subjective Subjective Date of Service: 05/04/24 Interval History: feels better, doesn't want to go to rehab Physical Exam Vital Signs: Vital Signs: Last Vital Signs Temp 97.1 F 05/04/24 07:18 Pulse 115 H 05/04/24 09:58 Resp 16 05/04/24 08:10 BP 117/77 05/04/24 09:58 Pulse Ox 93 05/04/24 07:18 O2 Del Method Room Air 05/04/24 07:18 Oxygen Flow Rate 1.5 04/28/24 21:47 BMI result Body Mass Index 30.0 General: AO X 3, no acute distress Resp: CTA bilateral CVS: S1,S2,RRR GI: +BS, NT, no distention Skin: No rash Neuro: motor grossly intact Psych: appropriate affect Const: Other: .ex Objective Data Active Medications Acetaminophen (Acetaminophen 325 Mg Tablet) 975 mg PO Q6H PRN PRN Reason: Pain, Mild 1-3,fever,headache Al Hydroxide/Mg Hydroxide (Magnesium Hydrox/Alum Hydrox 30 Ml Oral.Susp) 30 ml PO Q4H PRN PRN Reason: Dyspepsia Last Admin: 04/29/24 12:49 Dose: 30 ml Documented By: LUIS Albuterol Sulfate (Albuterol Sulfate 90 Mcg 8 Gm Inhaler) 2 puff INHALE RQ4H PRN PRN Reason: Shortness Of Breath Or Wheezing Last Admin: 04/30/24 16:23 Dose: 2 puff Documented By: JUAN ANTONIO Albuterol/Ipratropium (Albuterol/Iprat 2.5/0.5mg 3 Ml Ampul.Neb) 3 ml INHALE Q4H PRN PRN Reason: Wheezing Last Admin: 05/02/24 01:40 Dose: 3 ml Documented By: ADOLPH Atorvastatin Calcium (Atorvastatin Calcium 80 Mg Tablet) 80 mg PO DAILY [facility] Last Admin: 05/04/24 09:58 Dose: 80 mg Documented By: SHA Bupropion HCl (Bupropion Hcl Xl 300 Mg Tab.Er.24h) 300 mg PO DAILY [facility] Last Admin: 05/04/24 09:58 Dose: 300 mg Documented By: SHA Calcium Carbonate (Calcium Carbonate 750 Mg Tab.Chew) 750 mg PO Q4H PRN PRN Reason: Heartburn Last Admin: 05/02/24 10:43 Dose: 750 mg Documented By: JAYDON Ceftriaxone Sodium (Ceftriaxone Sodium 1 Gm Vial) 1 gm IVPUSH Q24H [facility] Last Admin: 05/04/24 02:25 Dose: 1 gm Documented By: ROSSANA Famotidine (Famotidine 20 Mg Tablet) 20 mg PO DAILY [facility] Last Admin: 05/04/24 09:58 Dose: 20 mg Documented By: SHA Finasteride (Finasteride 5 Mg Tablet) 5 mg PO DAILY [facility] Last Admin: 05/04/24 09:58 Dose: 5 mg Documented By: SHA Fluticasone/Umeclidinium/Vilanterol (Fluticasone/Umeclidinium/Vilanterol /.09/08 Blst.W.Dev) 1 puff INHALE RDAILY [facility] Last Admin: 05/04/24 08:10 Dose: 1 puff Documented By: DIVYA Metronidazole (Flagyl) 500 mg in 100 mls @ 100 mls/hr IV Q8H [facility] Last Infusion: 05/04/24 03:33 Dose: Infused Documented By: ROSSNAA Magnesium Hydroxide (Milk Of Magnesia 30 Ml Oral.Susp) 30 ml PO DAILY PRN PRN Reason: Constipation Melatonin (Melatonin 3 Mg Tablet) 6 mg PO BEDTIME PRN PRN Reason: Insomnia Metoprolol Succinate (Metoprolol Succinate Er 25 Mg Tab.Er.24h) 25 mg PO DAILY [facility]; Protocol Last Admin: 05/04/24 09:58 Dose: 25 mg Documented By: SHA Ondansetron HCl (Ondansetron Hcl 4 Mg/2 Ml Vial) 4 mg IVPUSH Q8H PRN PRN Reason: Nausea and Vomiting Sodium Chloride (0.9 % Sodium Chloride Flush 3 Ml Syringe) 3 ml IVFLUSH QSHIFT [facility] Last Admin: 05/04/24 09:56 Dose: 3 ml Documented By: SHA Tamsulosin HCl (Tamsulosin Hcl 0.4 Mg Capsule) 0.4 mg PO BID [facility] Last Admin: 05/04/24 09:58 Dose: 0.4 mg Documented By: SHA Labs 05/03/24 09:23 05/03/24 09:23 Microbiology Microbiology Results: Microbiology 04/28/24 22:49 Blood Culture - Final Blood - Venous No growth after 5 days. 04/28/24 22:34 Blood Culture - Final Blood - Venous No growth after 5 days. Assessment and Plan (1) Radiation fibrosis of lung: Status: Acute (2) COPD (chronic obstructive pulmonary disease): Status: Acute Plan 69-year-old male with a past medical history significant for chronic AFib, HFpEF, lung cancer s/p chemo and radiation 2020 (followed by [facility] oncology), abdominal aortic aneurysm, PVD, COPD, and hypotension, who presented to the ED via EMS due to weakness and shortness of breath. Patient also initially hypotensive which has been a chronic issue for him with hospitalizations due to poor p.o. intake for unknown reason, he does not have nausea or vomiting. He was responsive to midodrine, 3 L of IV fluids and albumin. Chest CT significant for pleural thickening suggestive of empyema in the left lower dorsal pleural space as well as left lower lobe pneumonia. Chest x-ray showed small left pleural effusion. BNP unable to be obtained at this time due to laboratory issues however no lower extremity edema and lung imaging as above. Suspected pulmonary fibrosis from radiation rather than empayema, possible infectous process -seen by CT surgery and pulmonology, no indication for intervention -continue to cover with antibiotics, change to po soon Acute hypotension secondary to acute dehydration--resolved with IVF AcuteLactic acidemia - secondary to dehydration, not sepsis Chronic anemia with acute drop following day of admission, possible dilutional effect no bleeding noted, H/H has been stable since 1 unit of rbc Normocytic anemia, chronic with acute drop, associated with tachycardia hemoglobin 7, in light tachycardia and sob, transfused 1 unit of rbc check urine ocult blood, repeat h/h today History of lung cancer - followed by [facility] Oncology - chest CT not suggestive of any recurrence Chronic AFib, HR on high side, will increase Toproll, incrase toprol to 50 - restart Eliquis when anemia resolved, or gib bleeding ruled out -patient and daughter states he has been having hematuria associated with eliquis HFpEF, no acute exacerbation - home meds due to hypotension COPD without acute exacerbation - no wheezing on exam - continue home meds/inhalers Full code VTE prophylaxis: Pneumoboots, restart Eliquis when appropriate Patient with empyema and pneumonia complicated by acute hypotension secondary to acute dehydration, requiring admission for at least 2 midnight stay for IV antibiotics and possible thoracentesis. PT eval recommend STR, he is not sure if he wants to go Quality Stroke Does the patient have a stroke diagnosis?: No VTE Prior VTE?: No VTE Risk Level:: Medical - moderate - high VTE Device Contraindication: N/A - Device Ordered VTE Drug Contraindication: Treatment Not Indicated
[2024-05-05] VITALS (10 sets, daily range): BP systolic 91–125; BP diastolic 63–87; PULSE 84–105; RESP 16–20; TEMP 36–36.6; O2SAT 92–96
[2024-05-05] MEDS: metroNIDAZOLE/NS 500 MG/100 ML PIGGYBACK 100 MG IV ×3 (02:37→19:10)
[2024-05-05] MEDS: cefTRIAXone sodium 1 GM VIAL IVPUSH (02:37)
[2024-05-05] MEDS: Fluticasone/Umeclidinium/Vilanterol 100/62.5/25 BLST.W.DEV 1 PUFF INHALE (07:40)
[2024-05-05] MEDS: Famotidine 20 MG TABLET PO (08:35)
[2024-05-05] MEDS: Atorvastatin Calcium 80 MG TABLET PO (08:35)
[2024-05-05] MEDS: Finasteride 5 MG TABLET PO (08:35)
[2024-05-05] MEDS: Tamsulosin HCL 0.4 MG CAPSULE PO ×2 (08:35→19:09)
[2024-05-05] MEDS: Metoprolol Succinate ER 25 MG TAB.ER.24H PO (08:35)
[2024-05-05] MEDS: buPROPion HCl XL 300 MG TAB.ER.24H PO (08:35)
[2024-05-05] MEDS: 0.9 % Sodium Chloride Flush 3 ML SYRINGE IVFLUSH ×3 (08:35→19:10)
--- NOTE | 2024-05-05 09:13 | HO.PM.IMPN ---
Subjective Subjective Date of Service: 05/05/24 Interval History: He is feeling better today, no shortness a breath. Physical Exam Vital Signs: Vital Signs: Last Vital Signs Temp 97.2 F 05/05/24 07:27 Pulse 96 05/05/24 08:35 Resp 18 05/05/24 07:40 BP 125/79 05/05/24 08:35 Pulse Ox 94 05/05/24 07:27 O2 Del Method Room Air 05/05/24 07:27 Oxygen Flow Rate 1.5 04/28/24 21:47 BMI result Body Mass Index 30.0 General: AO X 3, no acute distress Resp: CTA bilateral CVS: S1,S2,RRR GI: +BS, NT, no distention Skin: No rash Neuro: motor grossly intact Psych: appropriate affect Objective Data Active Medications Acetaminophen (Acetaminophen 325 Mg Tablet) 975 mg PO Q6H PRN PRN Reason: Pain, Mild 1-3,fever,headache Al Hydroxide/Mg Hydroxide (Magnesium Hydrox/Alum Hydrox 30 Ml Oral.Susp) 30 ml PO Q4H PRN PRN Reason: Dyspepsia Last Admin: 04/29/24 12:49 Dose: 30 ml Documented By: LUIS Albuterol Sulfate (Albuterol Sulfate 90 Mcg 8 Gm Inhaler) 2 puff INHALE RQ4H PRN PRN Reason: Shortness Of Breath Or Wheezing Last Admin: 04/30/24 16:23 Dose: 2 puff Documented By: JUAN ANTONIO Albuterol/Ipratropium (Albuterol/Iprat 2.5/0.5mg 3 Ml Ampul.Neb) 3 ml INHALE Q4H PRN PRN Reason: Wheezing Last Admin: 05/02/24 01:40 Dose: 3 ml Documented By: ADOLPH Atorvastatin Calcium (Atorvastatin Calcium 80 Mg Tablet) 80 mg PO DAILY [facility] Last Admin: 05/05/24 08:35 Dose: 80 mg Documented By: SHA Bupropion HCl (Bupropion Hcl Xl 300 Mg Tab.Er.24h) 300 mg PO DAILY [facility] Last Admin: 05/05/24 08:35 Dose: 300 mg Documented By: SHA Calcium Carbonate (Calcium Carbonate 750 Mg Tab.Chew) 750 mg PO Q4H PRN PRN Reason: Heartburn Last Admin: 05/02/24 10:43 Dose: 750 mg Documented By: JAYDON Ceftriaxone Sodium (Ceftriaxone Sodium 1 Gm Vial) 1 gm IVPUSH Q24H [facility] Last Admin: 05/05/24 02:37 Dose: 1 gm Documented By: ROSSANA Famotidine (Famotidine 20 Mg Tablet) 20 mg PO DAILY [facility] Last Admin: 05/05/24 08:35 Dose: 20 mg Documented By: SHA Finasteride (Finasteride 5 Mg Tablet) 5 mg PO DAILY [facility] Last Admin: 05/05/24 08:35 Dose: 5 mg Documented By: SHA Fluticasone/Umeclidinium/Vilanterol (Fluticasone/Umeclidinium/Vilanterol 100/.5 Blst.W.Dev) 1 puff INHALE RDAILY [facility] Last Admin: 05/05/24 07:40 Dose: 1 puff Documented By: VANNA Metronidazole (Flagyl) 500 mg in 100 mls @ 100 mls/hr IV Q8H [facility] Last Infusion: 05/05/24 03:41 Dose: Infused Documented By: ROSSANA Magnesium Hydroxide (Milk Of Magnesia 30 Ml Oral.Susp) 30 ml PO DAILY PRN PRN Reason: Constipation Melatonin (Melatonin 3 Mg Tablet) 6 mg PO BEDTIME PRN PRN Reason: Insomnia Metoprolol Succinate (Metoprolol Succinate Er 25 Mg Tab.Er.24h) 25 mg PO DAILY [facility]; Protocol Last Admin: 05/05/24 08:35 Dose: 25 mg Documented By: SHA Ondansetron HCl (Ondansetron Hcl 4 Mg/2 Ml Vial) 4 mg IVPUSH Q8H PRN PRN Reason: Nausea and Vomiting Sodium Chloride (0.9 % Sodium Chloride Flush 3 Ml Syringe) 3 ml IVFLUSH QSHIFT [facility] Last Admin: 05/05/24 08:35 Dose: 3 ml Documented By: SHA Tamsulosin HCl (Tamsulosin Hcl 0.4 Mg Capsule) 0.4 mg PO BID [facility] Last Admin: 05/05/24 08:35 Dose: 0.4 mg Documented By: SHA Labs 05/03/24 09:23 05/03/24 09:23 Assessment and Plan (1) Radiation fibrosis of lung: Status: Acute (2) COPD (chronic obstructive pulmonary disease): Status: Acute Plan 69-year-old male with a past medical history significant for chronic AFib, HFpEF, lung cancer s/p chemo and radiation 2020 (followed by [facility] oncology), abdominal aortic aneurysm, PVD, COPD, and hypotension, who presented to the ED via EMS due to weakness and shortness of breath. Patient also initially hypotensive which has been a chronic issue for him with hospitalizations due to poor p.o. intake for unknown reason, he does not have nausea or vomiting. He was responsive to midodrine, 3 L of IV fluids and albumin. Chest CT significant for pleural thickening suggestive of empyema in the left lower dorsal pleural space as well as left lower lobe pneumonia. Chest x-ray showed small left pleural effusion. BNP unable to be obtained at this time due to laboratory issues however no lower extremity edema and lung imaging as above. Suspected pulmonary fibrosis from radiation rather than empayema, possible infectous process -seen by CT surgery and pulmonology, no indication for intervention -continue to cover with antibiotics, change to Augmentin Acute hypotension secondary to acute dehydration--resolved with IVF AcuteLactic acidemia - secondary to dehydration, not sepsis Chronic anemia with acute drop following day of admission, possible dilutional effect no bleeding noted, H/H has been stable since 1 unit of rbc Normocytic anemia, chronic with acute drop, associated with tachycardia hemoglobin 7, in light tachycardia and sob, transfused 1 unit of rbc check urine ocult blood, History of lung cancer - followed by [facility] Oncology - chest CT not suggestive of any recurrence Chronic AFib, HR on high side, will increase Toproll, incrase toprol to 50 - restart Eliquis when anemia resolved, or gib bleeding ruled out -patient and daughter states he has been having hematuria associated with eliquis -he has not had any bleeding while he HFpEF, no acute exacerbation - home meds due to hypotension COPD without acute exacerbation - no wheezing on exam - continue home meds/inhalers Full code VTE prophylaxis: Pneumoboots, restart Eliquis when appropriate Patient with empyema and pneumonia complicated by acute hypotension secondary to acute dehydration, requiring admission for at least 2 midnight stay for IV antibiotics and possible thoracentesis. PT eval recommend STR, he is not sure if he wants to go Quality Stroke Does the patient have a stroke diagnosis?: No VTE Prior VTE?: No VTE Risk Level:: Medical - moderate - high VTE Device Contraindication: N/A - Device Ordered VTE Drug Contraindication: Treatment Not Indicated
--- NOTE | 2024-05-05 09:15 | P.DS_ITS ---
DS: Providers Provider Date of Service: 05/05/24 Date of admission: 04/29/24 04:45 Date of discharge: 05/05/24 Primary care physician: Babatunde Plascencia MD Consults: 04/29/24 04:42 Consult to Pulmonology Routine Consulting Provider: Sebastian Roland Reason for consultation: empyema 04/29/24 12:50 Consult to Thoracic Surgery Routine Consulting Provider: Morgan Rubio Reason for consultation: empayema DS: Diagnosis Discharge Diagnosis (1) Radiation fibrosis of lung: Status: Acute (2) COPD (chronic obstructive pulmonary disease): Status: Acute DS: Summary Hospital Course Hospital Course: Admission HPI Chief Complaint: weakness, SOB Patient is a 69-year-old male with a past medical history significant for chronic AFib, HFpEF, lung cancer s/p chemo and radiation 2020 (followed by [facility] oncology), abdominal aortic aneurysm, PVD, COPD, and hypotension, who presented to the ED via EMS due to weakness and shortness of breath. 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 He reports a neck pain has resolved however he continues to have shortness of breath and a cough. He has had yellow sputum for the past 3-4 weeks and denies any fever or chills. He will occasionally have some vomiting related to his cough. He denies any chest pain. He does have atrial fibrillation is supposed to be taking Eliquis but reports he has not taken it to a cost but and to restart now that his health insurance is renewed. He has a history of lung cancer s/p chemo and radiation followed by [facility]. He reports he last saw them 6-8 months ago and is overdue for an appointment for follow-up. He denies any lower extremity edema. He also reports that he has had many episodes of hypotension while hospitalized in the past, suggested to be related to poor p.o. intake Hospital course: 69-year-old male with a past medical history significant for chronic atrial fibrillation (AFib), heart failure with preserved ejection fraction (HFpEF), lung cancer status post chemotherapy and radiation in 2020 (followed by [facility]), abdominal aortic aneurysm, peripheral vascular disease (PVD), chronic obstructive pulmonary disease (COPD), and hypotension, who [facility] via EMS due to weakness and shortness of breath. The patient was initially hypotensive, which has been a chronic issue for him with recurrent hospitalizations due to poor oral intake for an unknown reason. He does not report nausea or vomiting. He was responsive to treatment with midodrine, 3 liters of IV fluids, and albumin. Chest CT revealed pleural thickening suggestive of empyema in the left lower dorsal pleural space, as well as left lower lobe pneumonia. Chest X-ray showed a small left pleural effusion. The patient was started on broad-spectrum antibiotics with ceftriaxone and metronidazole. He was evaluated by thoracic surgery and pulmonology, and the findings on the chest X-ray and CT scan were not deemed to represent empyema but rather radiation-related fibrosis. Despite this, he has been treated with ceftriaxone and metronidazole. Currently, the patient is afebrile, his last white blood cell (WBC) count was normal, and cultures have been negative. He is not hypoxic. He has completed 7 days of antibiotics in the hospital. Acute hypotension on presentation was not due to sepsis, was attributed to dehydration AcuteLactic acidemia - secondary to dehydration, not sepsis, resolved Chronic anemia with acute drop following day of admission, possible dilutional effect no bleeding noted, H/H has been stable since 1 unit of rbc and no blood loss noted History of lung cancer - followed by [facility] - chest CT not suggestive of any recurrence Chronic AFib, HR on high side, rate is controlled, he has been off eliquis for months d/t hematuria everythime he goes back on it. This is to be reevaluated on outpatient basis HFpEF, no acute exacerbation - home meds due to hypotension COPD without acute exacerbation - no wheezing on exam - continue home meds/inhalers Physical therapy saw him and recommended short-term rehab he has declined this and will rather go home. I spoke to his daughter about this, and she also has not been able to convince him to go. He would therefore be discharged home with visiting nurse services. Time Attestation Discharge Coordination Time (in mins): 65 Quality: Safe Use of Opioids Does Pt have an Active Cancer Diagnosis on the Problem List?: No Quality: Stroke Does the patient have a stroke diagnosis?: No Physical Exam Vital Signs: Vital Signs: Last Vital Signs Temp 97.2 F 05/05/24 07:27 Pulse 96 05/05/24 08:35 Resp 18 05/05/24 07:40 BP 125/79 05/05/24 08:35 Pulse Ox 94 05/05/24 07:27 O2 Del Method Room Air 05/05/24 07:27 Oxygen Flow Rate 1.5 04/28/24 21:47 BMI result Body Mass Index 30.0 General: AO X 3, no acute distress Resp: CTA bilateral CVS: S1,S2,RRR GI: +BS, NT, no distention Skin: No rash Neuro: motor grossly intact Psych: appropriate affect Discharge Plan Discharge Anticipated Discharge Date/Time: 05/06/24 08:06 Patient Disposition: Discharge Diagnosis: Right heart failure, Pulmonary fibrosis, cardiac arrest Referrals: Babatunde Plascencia MD [Primary Care Provider] - 1 Week Discharge Medications: Continued atorvastatin 80 mg tablet 80 mg PO DAILY oxycodone-acetaminophen 5-325 mg tablet 1 tab PO Q6H PRN (Reason: Pain (Scale Score 4-6)) albuterol sulfate 90 mcg/actuation HFA aerosol inhaler 2 puff inhalation Q4H PRN (Reason: Shortness Of Breath Or Wheezing) bupropion HCl 300 mg tablet extended release 24 hr 300 mg PO DAILY famotidine 20 mg tablet 20 mg PO DAILY finasteride 5 mg Tablet 5 mg PO DAILY Eliquis 5 mg Tablet 5 mg PO BID Trelegy Ellipta 100-62.5-25 mcg Blister With Device 1 inh INHALATION DAILY aspirin 81 mg Tablet,Delayed Release (Dr/Ec) 81 mg PO DAILY metoprolol succinate 25 mg tablet extended release 24 hr 25 mg PO DAILY Protocol: Hold for SBP/HR < HOLD for SBP < : 90 HOLD for HR < : 60 tamsulosin 0.4 mg capsule 0.4 mg PO BID Diet: Advance to usual diet Activity on Discharge: As tolerated Print Language: French Care Plan Goals: Recovery shortness of breath for possible pneumonia and pulmonary fibrosis Health Concerns: Pulmonary fibrosis Plan of Treatment: Resume your usual medication at home follow up with your [facility] in a week Assessment: See above
[2024-05-05] MEDS: Albuterol Sulfate 90 MCG 8 GM INHALER 2 PUFF INHALE (14:52)
--- NOTE | 2024-05-05 14:55 | MHC.CM.PN ---
Addendum entered by Yareli Cerda 05/05/24 16:50: PTS DAUGHTER AT BEDSIDE, SHE REPORTS SHE WAS TRYING TO DO THE MH SIRI BUT DOES NOT REALLY KNOW WHAT SHE NEEDS SHE SAYS SHE SPOKE TO [facility] AND THEY TOLD HER SHE HAD TO DO THE SIRI. SHE IS AGREEABLE TO A REFERRAL TO [facility] THEY ARE HOPING PT CAN QUALIFY FOR [facility] FOR HOME SERVICES AND STR ACCESS, HOWEVER HE HAS NOT QUALIFIED IN THE PAST HE SAYS IF HE IS NOT GOING TO QUALIFY, HE IS NOT WILLING TO GO TO LTC, HE WOULD TRY TO GO HOME AND WOULD ACCEPT VNA Original Note: PT WAS GOING TO DC TODAY, HOWEVER HE CONTINUES TO REFUSE STR AND WAS UNABLE TO STAND INDEPENDENTLY HE DOES NOT HAVE CONSISTENT HELP AT HOME AND WAS REFUSING VNA SERVICES CM CALLED PTS DAUGHTER, CHARISSA [phone], SHE REPORTS SHE IS ALSO CONCERNED ABOUT THE PT, HOWEVER SHE IS UNABLE TO PROVIDE HIS CARE SHE SAYS SHE ALSO KNOWS THAT HE WILL LIKELY LOSE HIS ROOM AT THE [facility] IF HE GOES TO STR, WHICH IS WHY SHE THINKS HE CONTINUES TO REFUSE PER DISCUSSION, CM WILL CONTACT [facility] TO DETERMINE IF PT COULD SAFELY GO TO STR, HOWEVER PT IS ALSO CONCERNED WITH COPAYS FOR STR CHARISSA REPORTS SHE SPOKE TO [facility] RECENTLY AND THEY WERE GOING TO WORK ON MASTER MACHINIST AND A WAIVER FOR MH PT INFORMED MH WOULD PAY ANY COPAYS, HOWEVER EVEN IF HE DOES NOT QUALIFY, HE WAS ENCOURAGED TO CONSIDER STR HE IS UNSAFE AT HOME
--- NOTE | 2024-05-05 14:57 | PC.NURSE ---
requesting Ortho's from pt. Pt unable to participate in orths because he states I'm to weak. notified. Pt reluctant to take direction for safety from nursing staff with ambulation and bed mobility. CM in to see patient about STR.
[2024-05-06] MEDS: cefTRIAXone sodium 1 GM VIAL IVPUSH (02:59)
[2024-05-06] MEDS: metroNIDAZOLE/NS 500 MG/100 ML PIGGYBACK 100 MG IV (03:00)
[2024-05-06 03:07] VITALS: BP 117/83; PULSE 103; RESP 16; TEMP 36; O2SAT 94
[2024-05-06 07:18] VITALS: TEMP 36.1
[2024-05-06 07:57] LABS: Glucose, Whole Blood 153 mg/dL (60-115)
--- NOTE | 2024-05-06 08:23 | PC.NURSE ---
Patient found unresponsive at 0745 by SHAYY Rodriguez,,no respirations,no pulse ,Code Blue was called,Code Team took care of patient,see Code Blue assessment sheet,Dr. Gilliam notified family.
--- NOTE | 2024-05-06 09:01 | PC.NURSE ---
IV removed from LLA,vlad applied
--- NOTE | 2024-05-06 09:02 | PC.NURSE ---
Family in pt room visiting
--- NOTE | 2024-05-06 09:07 | PM.EVENT ---
Event Note Date of Service: 05/06/24 Event Note: Patient was found unresponsive this morning during a vital check. Earlier, he was reported to be alive during the shift report. A code blue was called, and the patient underwent 20 minutes of resuscitation but did not regain a pulse or blood pressure. The patient's daughter was notified. The Staff Submarine Warfare Officer declined the case under . The patient was pronounced at 8:06 AM. Time Spent With Patient Time: Total time managing care of this patient today ____ minutes.
--- NOTE | 2024-05-06 13:46 | PC.NURSE ---
patient was transported to [facility] by transporter,post mortem care completed by SHAYY Rodriguez with other PATTERNMAKER APPRENTICE WOOD assistance,wallet and inhaler found in patient room was returned to [facility] by post anesthesia care unit nurse
--- NOTE | 2024-05-06 17:09 | PM.DDS ---
Discharge Sum: Prov Provider Primary care physician: Babatunde Plascencia MD Consults: 04/29/24 04:42 Consult to Pulmonology Routine Consulting Provider: Sebastian Roland Reason for consultation: empyema 04/29/24 12:50 Consult to Thoracic Surgery Routine Consulting Provider: Morgan Rubio Reason for consultation: empayema Discharge Sum: Diag Contributing Factors (1) Radiation fibrosis of lung: (2) COPD (chronic obstructive pulmonary disease): Discharge Sum: Summary Date and Time Date of admission: 04/29/24 04:45 Summary Details: Admission HPI Chief Complaint: weakness, SOB Patient is a 69-year-old male with a past medical history significant for chronic AFib, HFpEF, lung cancer s/p chemo and radiation 2020 (followed by [facility] oncology), abdominal aortic aneurysm, PVD, COPD, and hypotension, who presented to the ED via EMS due to weakness and shortness of breath. 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 He reports a neck pain has resolved however he continues to have shortness of breath and a cough. He has had yellow sputum for the past 3-4 weeks and denies any fever or chills. He will occasionally have some vomiting related to his cough. He denies any chest pain. He does have atrial fibrillation is supposed to be taking Eliquis but reports he has not taken it to a cost but and to restart now that his health insurance is renewed. He has a history of lung cancer s/p chemo and radiation followed by [facility]. He reports he last saw them 6-8 months ago and is overdue for an appointment for follow-up. He denies any lower extremity edema. He also reports that he has had many episodes of hypotension while hospitalized in the past, suggested to be related to poor p.o. intake Hospital course: 69-year-old male with a past medical history significant for chronic atrial fibrillation (AFib), heart failure with preserved ejection fraction (HFpEF), lung cancer status post chemotherapy and radiation in 2020 (followed by [facility]), abdominal aortic aneurysm, peripheral vascular disease (PVD), chronic obstructive pulmonary disease (COPD), and hypotension, who presented to the emergency department (ED) via EMS due to weakness and shortness of breath. The patient was initially hypotensive, which has been a chronic issue for him with recurrent hospitalizations due to poor oral intake for an unknown reason. He does not report nausea or vomiting. He was responsive to treatment with midodrine, 3 liters of IV fluids, and albumin. Chest CT revealed pleural thickening suggestive of empyema in the left lower dorsal pleural space, as well as left lower lobe pneumonia. Chest X-ray showed a small left pleural effusion. The patient was started on broad-spectrum antibiotics with ceftriaxone and metronidazole. He was evaluated by thoracic surgery and pulmonology, and the findings on the chest X-ray and CT scan were not deemed to represent empyema but rather radiation-related fibrosis. Despite this, he has been treated with ceftriaxone and metronidazole. Currently, the patient is afebrile, his last white blood cell (WBC) count was normal, and cultures have been negative. He is not hypoxic. He cocompleted a coures of antibiotics. Patient was seen by PT and recommended for STR however he declined this, however concerns were raised that he was tos frail for home and daughter and case management and myself were trying to convince him to accept rehab. On the morning of 05/06/19 he became unresponsive, cheyanne grande was called, ROBBIE cheema was followed and after 20 minutes, no pulse or blood pressure could be obtained. CPR resulted in crepitus and air bubles on right chest are, likely result of PTX from compression, need decompression resulted in some air coming out. Suspect underlying right heart failure leading cardiac arrest. Patient daughter was notified, ME called case declined Case # Final diagnoses Right heart failure Pneumonia history of lung cancer pulmonuary fibrosis Chronic Atrial fibrilation Adult failure to thrive COPD Acute lactic acidosis Acute hypotension on presentation was not due to sepsis, was attributed to dehydration AcuteLactic acidemia - secondary to dehydration, not sepsis, resolved Chronic anemia with acute drop following day of admission, possible dilutional effect no bleeding noted, H/H has been stable since 1 unit of rbc and no blood loss noted History of lung cancer - followed by [facility] - chest CT not suggestive of any recurrence Chronic AFib, HR on high side, rate is controlled, he has been off eliquis for months d/t hematuria everythime he goes back on it. This is to be reevaluated on outpatient basis HFpEF, no acute exacerbation - home meds due to hypotension COPD without acute exacerbation - no wheezing on exam - continue home meds/inhalers Physical therapy saw him and recommended short-term rehab he has declined this and will rather go home. I spoke to his daughter about this, and she also has not been able to convince him to go. He would therefore be discharged home with visiting nurse services. Additional Data Attending physician: Adebayo Gilliam MD
== END 2024-05-06 13:49 | disposition expired | DRG 194 ==
LOC: HO.ED 04-29 03:48 → HO.EDOVER 04-29 04:50 → HO.S3 04-30 05:32
PROVIDERS: Internal Medicine; Admitting Provider Physician Assistant; Emergency Provider Emergency Medicine; PCP Internal Medicine; Visit Provider Internal Medicine
DX: J18.9 Pneumonia, unspecified organism (principal); D62 Acute posthemorrhagic anemia; E87.21 Acute metabolic acidosis; J44.0 Chronic obstructive pulmonary disease with (acute) lower respiratory infection; I48.20 Chronic atrial fibrillation, unspecified; I50.32 Chronic diastolic (congestive) heart failure; J98.11 Atelectasis; J91.8 Pleural effusion in other conditions classified elsewhere; J70.1 Chronic and other pulmonary manifestations due to radiation; E86.0 Dehydration; Y84.2 Radiological procedure and radiotherapy as the cause of abnormal reaction of the patient, or of later complication, without mention of misadventure at the time of the procedure; Z20.822 Contact with and (suspected) exposure to COVID-19; I50.810 Right heart failure, unspecified; I46.2 Cardiac arrest due to underlying cardiac condition; T45.516A Underdosing of anticoagulants, initial encounter; I95.9 Hypotension, unspecified; Z91.120 Patient's intentional underdosing of medication regimen due to financial hardship; R54 Age-related physical debility; Z87.891 Personal history of nicotine dependence; Z79.01 Long term (current) use of anticoagulants; Z79.82 Long term (current) use of aspirin; Z79.899 Other long term (current) drug therapy; Z85.118 Personal history of other malignant neoplasm of bronchus and lung
CPT/HCPCS: 0241U; 36415; 71045; 71250; 80048; 80053; 80307; 81001; 82272; 82947; 83605; 83735; 83880; 84484; 85014; 85018; 85025; 85027; 85610; 86850; 86900; 86901; 86923; 87040; 93005; 94640; 94799; 97162; 99285; J0696; J1836; P9016; P9047

== ENCOUNTER → 2024-04-28 21:53 | Outpatient (BNV) | payer MEDICARE, SELFPAY | PROVIDERS: Admitting Provider Physician Assistant; Emergency Provider Emergency Medicine; PCP Internal Medicine; Visit Provider Internal Medicine Cardiovascular Disease | DX: R94.31 Abnormal electrocardiogram [ECG] [EKG] (principal) | CPT/HCPCS: 93010 ==

== ENCOUNTER → 2024-04-28 22:21 | Outpatient (BNV) | payer MEDICARE, SELFPAY | PROVIDERS: Emergency Provider Emergency Medicine; PCP Internal Medicine; Visit Provider Radiology Neuroradiology | DX: R05.9 Cough, unspecified (principal); I95.9 Hypotension, unspecified; J90 Pleural effusion, not elsewhere classified; J98.11 Atelectasis | CPT/HCPCS: 71045 ==

== ENCOUNTER → 2024-04-29 00:38 | Outpatient (BNV) | payer MEDICARE, SELFPAY | PROVIDERS: Emergency Provider Emergency Medicine; PCP Internal Medicine; Visit Provider Radiology Neuroradiology | DX: R05.9 Cough, unspecified (principal); R07.89 Other chest pain; R53.1 Weakness | CPT/HCPCS: 71250 ==

== ENCOUNTER → 2024-04-29 04:45 | Outpatient (BNV) | payer MEDICARE, SELFPAY | PROVIDERS: Admitting Provider Physician Assistant; Emergency Provider Emergency Medicine; PCP Internal Medicine; Visit Provider Internal Medicine | DX: J70.1 Chronic and other pulmonary manifestations due to radiation (principal); J44.9 Chronic obstructive pulmonary disease, unspecified | CPT/HCPCS: 99223; 99232; 99499 ==

== ENCOUNTER → 2024-04-29 04:45 | Outpatient (BNV) | payer MEDICARE, SELFPAY | PROVIDERS: Admitting Provider Physician Assistant; Emergency Provider Emergency Medicine; PCP Internal Medicine; Visit Provider Surgery | DX: J18.9 Pneumonia, unspecified organism (principal); J86.9 Pyothorax without fistula | CPT/HCPCS: 99223 ==

== ENCOUNTER → 2024-04-29 04:45 | Outpatient (BNV) | payer MEDICARE, SELFPAY | PROVIDERS: Admitting Provider Physician Assistant; Emergency Provider Emergency Medicine; PCP Internal Medicine; Visit Provider Internal Medicine Pulmonary Disease | DX: J44.9 Chronic obstructive pulmonary disease, unspecified (principal); C34.92 Malignant neoplasm of unspecified part of left bronchus or lung; J70.1 Chronic and other pulmonary manifestations due to radiation | CPT/HCPCS: 99223 ==